=== PATIENT | female | born 1960 | race African-American/Black ===

== ENCOUNTER 2017-01-06 23:15 | Inpatient (IN) | payer OTHER ==
[~2017-01-06] VITALS: Ht 162.6 cm; Wt 78.6 kg
[~2017-01-06 23:15] MED LIST: AMLO5TAB2 PO
--- NOTE | 2017-01-06 23:22 | PHYS DOC ---
Past Medical History Past Medical History: Hypertension Past Surgical History: Hysterectomy Alcohol Use: Heavy Drug Use: Marijuana Adult General Chief Complaint Chief Complaint: SHORTNESS OF BREATH HPI HPI Patient is a 56 year old female who presents with shortness of breath. EMS was called today she states she's been having shortness of breath all day today. They found her to have O2 sats 80% on room air. They brought her in on CPAP. Her oxygen level improved to 96% while on their CPAP. She denies any chest pain , she states her shortness of breath she's never had like this before. She states she does have 2 inhalers she uses but denies a history of COPD. She does smoke but only smokes 2 units per day. She states she was seen at [facility]. 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 She states she's had a cough all day but is nonproductive. She denies any fevers or chills nausea or vomiting. She denies any chest discomfort or pain. States she as been prescribed Lasix secondary for her blood pressure but has not been taking it. Review of Systems Review of Systems Constitutional: Denies fever or chills [] Eyes: Denies change in visual acuity, redness, or eye pain [] HENT: Denies nasal congestion or sore throat [] Respiratory: Positive for cough and shortness of breath. Cardiovascular: No additional information not addressed in HPI [] GI: Denies abdominal pain, nausea, vomiting, bloody stools or diarrhea [] : Denies dysuria or hematuria [] Musculoskeletal: Denies back pain or joint pain [] Integument: Denies rash or skin lesions [] Neurologic: Denies headache, focal weakness or sensory changes [] Endocrine: Denies polyuria or polydipsia [] Current Medications Current Medications Current Medications Medications (Trade) Dose Ordered Sig/Rhys Start Time Stop Time Status Last Admin Dose Admin Albuterol/ Ipratropium (Duoneb) 3 ml STK-MED ONCE 01/06/17 23:33 01/06/17 23:34 DC Furosemide (Lasix) 40 mg 1X ONCE 01/07/17 00:15 01/07/17 00:16 DC 01/07/17 00:14 40 MG Labetalol HCl (Normodyne) 20 mg PRN Q2HR PRN 01/07/17 00:15 Methylprednisolone Sodium Succinate (SOLU-Medrol 125MG VIAL) 125 mg 1X ONCE 01/06/17 23:45 01/06/17 23:46 DC 01/06/17 23:36 125 MG Allergies Allergies Allergies Coded Allergies Type Severity Reaction Last Updated Verified Penicillins Allergy Intermediate 12/16/15 No Physical Exam Physical Exam Constitutional: Well developed, well nourished, no acute distress, non-toxic appearance. [] HENT: Normocephalic, atraumatic, bilateral external ears normal, oropharynx moist, no oral exudates, nose normal. [] Eyes: PERRLA, EOMI, conjunctiva normal, no discharge. [] Neck: Normal range of motion, no tenderness, supple, no stridor. [] Cardiovascular:Heart rate regular rhythm, no murmur [] Lungs & Thorax: Bilateral breath sounds decreased bilaterally, no wheezing appreciated this time. Abdomen: Bowel sounds normal, soft, no tenderness, no masses, no pulsatile masses. [] Skin: Warm, dry, no erythema, no rash. [] Back: No tenderness, no CVA tenderness. [] Extremities: No tenderness, no cyanosis, no clubbing, ROM intact, no edema. [] Neurologic: Alert and oriented X 3, normal motor function, normal sensory function, no focal deficits noted. [] Psychologic: Affect normal, judgement normal, mood normal. [] Current Patient Data Vital Signs Vital Signs Date Time Temp Pulse Resp B/P (MAP) Pulse Ox O2 Delivery O2 Flow Rate FiO2 01/07/17 00:08 94 01/07/17 00:04 88 25 182/99 (126) BiPAP/CPAP 01/06/17 23:19 98.1 98.1 Lab Values Laboratory Tests Test 01/06/17 00:08 01/06/17 23:24 01/06/17 23:43 O2 Saturation 90 % (92-99) L Arterial Blood pH 7.39 (7.35-7.45) Arterial Blood pCO2 at Patient Temp 37 mmHg (35-46) Arterial Blood pO2 at Patient Temp 63 mmHg (75-108) L Arterial Blood HCO3 22 mmol/L (21-28) Arterial Blood Base Excess -3 mmol/L (-3-3) FiO2 30.0 White Blood Count 8.5 x10^3/uL (4.0-11.0) Red Blood Count 4.21 x10^6/uL (3.50-5.40) Hemoglobin 12.7 g/dL (12.0-15.5) Hematocrit 40.6 % (36.0-47.0) Mean Corpuscular Volume 97 fL (79-100) Mean Corpuscular Hemoglobin 30 pg (25-35) Mean Corpuscular Hemoglobin Concent 31 g/dL (31-37) Red Cell Distribution Width 14.0 % (11.5-14.5) Platelet Count 192 x10^3/uL (140-400) Neutrophils (%) (Auto) 55 % (31-73) Lymphocytes (%) (Auto) 37 % (24-48) Monocytes (%) (Auto) 6 % (0-9) Eosinophils (%) (Auto) 1 % (0-3) Basophils (%) (Auto) 1 % (0-3) Neutrophils # (Auto) 4.7 x10^3uL (1.8-7.7) Lymphocytes # (Auto) 3.2 x10^3/uL (1.0-4.8) Monocytes # (Auto) 0.5 x10^3/uL (0.0-1.1) Eosinophils # (Auto) 0.1 x10^3/uL (0.0-0.7) Basophils # (Auto) 0.1 x10^3/uL (0.0-0.2) Prothrombin Time 14.1 SEC (11.7-14.0) H Prothrombin Time INR 1.2 (0.8-1.1) H Sodium Level 142 mmol/L (136-145) Potassium Level 3.7 mmol/L (3.5-5.1) Chloride Level 104 mmol/L (98-107) Carbon Dioxide Level 30 mmol/L (21-32) Anion Gap 8 (6-14) Blood Urea Nitrogen 25 mg/dL (7-20) H Creatinine 1.2 mg/dL (0.6-1.0) H Estimated GFR (Cockcroft-Gault) 56.2 Glucose Level 328 mg/dL (70-99) H Lactic Acid Level 3.8 mmol/L (0.4-2.0) H Calcium Level 9.1 mg/dL (8.5-10.1) Magnesium Level 1.8 mg/dL (1.8-2.4) Total Bilirubin 0.5 mg/dL (0.2-1.0) Direct Bilirubin 0.2 mg/dL (0.0-0.2) Aspartate Amino Transferase (AST) 135 U/L (15-37) H Alanine Aminotransferase (ALT) 105 U/L (14-59) H Alkaline Phosphatase 126 U/L (46-116) H Creatine Kinase 54 U/L (26-192) Creatine Kinase MB (Mass) 1.0 ng/mL (0.0-3.6) Creatine Kinase MB Relative Index % (0-4) Troponin I Quantitative 0.049 ng/mL (0.000-0.055) VX-Ais-G-Type Natriuretic Peptide 46452 pg/mL (0-124) H Total Protein 6.7 g/dL (6.4-8.2) Albumin 2.8 g/dL (3.4-5.0) L Lipase 238 U/L (73-393) POC Urine HCG, Qualitative Hcg negative (Negative) Laboratory Tests 01/06/17 23:24 Laboratory Tests 01/06/17 23:24 EKG EKG EKG shows sinus tachycardia with a rate of [address] elevations, T- wave inversions appreciated in aVL, left axis deviation noted, QTC 456 ms, as interpreted by me. 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 Impressions: Dyspnea likely CHF exacerbation Course & Med Decision Making Course & Med Decision Making Pertinent Labs and Imaging studies reviewed. (See chart for details) Patient presents in respiratory failure needing CPAP by EMS. She was hypoxic at home with O2 sats in the 80s prior to applying her CPAP. She states that she's has inhalers but no formal diagnosis of COPD. She did get a breathing treatment and Solu-Medrol upon arrival. She does states she takes Lasix as needed for high blood pressure but has not been taking this for a while. Chest x-ray and labs are consistent with pulmonary edema. She was given 40 of IV Lasix and her blood pressure responded accordingly. I had ordered labetalol but this has not been given secondary to her blood pressure being in the 150s now. Interim orders have been written she is going to the [facility] on BiPAP. I anticipate that over the next 1-2 hours she can be titrated off of this. Patient is being admitted in stable condition at this time. I did write for consultations with cardiology and pulmonary, I did not call them and we'll let the floor calling consults. Critical care time 45 minutes of critical care time was used on this patient excluding procedures. Dragon Disclaimer Dragon Disclaimer This electronic medical record was generated, in whole or in part, using a voice recognition dictation system. Departure Departure Impression: Primary Impression: Shortness of breath Disposition: ADMITTED INPATIENT Admitting Physician: Umesh Mark Condition: STABLE Referrals: NON,STAFF (PCP) NATALIA SEXTON MD Jan 06, 2017 23:22
[2017-01-06] MEDS ORDERED: IPRATRPIUM/ALBUTEROL 0.5/2.5MG 3 ML NEBU. ONE (23:33)
[2017-01-06 23:37] LABS: BASO # 0.1 x10^3/uL (0.0-0.2); BASO % 1 % (0-3); EOS % 1 % (0-3); HEMATOCRIT 40.6 % (36.0-47.0); HEMOGLOBIN 12.7 g/dL (12.0-15.5); LYMPH # 3.2 x10^3/uL (1.0-4.8); LYMPH % 37 % (24-48); MEAN CORPUSCULAR HEMOGLOBIN 30 pg (25-35); MEAN CORPUSCULAR HGB CONC 31 g/dL (31-37); MEAN CORPUSCULAR VOLUME 97 fL (79-100); MONO % 6 % (0-9); NEUT % 55 % (31-73); PLATELET COUNT 192 x10^3/uL (140-400); RED BLOOD COUNT 4.21 x10^6/uL (3.50-5.40); WHITE BLOOD COUNT 8.5 x10^3/uL (4.0-11.0)
[2017-01-06 23:44] LABS: INR 1.2 (0.8-1.1); PROTHROMBIN TIME PATIENT 14.1 SEC (11.7-14.0)
[2017-01-06] MEDS ORDERED: methylPREDNISolone SOD SUCC PF 125 MG/2 ML VIAL. IV ONE (23:45)
[2017-01-06 23:47] LABS: CALCIUM 9.1 mg/dL (8.5-10.1); CREATININE 1.2 mg/dL (0.6-1.0); GFR 56.2; POTASSIUM 3.7 mmol/L (3.5-5.1)
[2017-01-06 23:53] LABS: ALBUMIN 2.8 g/dL (3.4-5.0); DIRECT BILIRUBIN 0.2 mg/dL (0.0-0.2); MAGNESIUM 1.8 mg/dL (1.8-2.4); TOTAL BILIRUBIN 0.5 mg/dL (0.2-1.0); TOTAL PROTEIN 6.7 g/dL (6.4-8.2)
[2017-01-07] VITALS (9 sets, daily range): BP systolic 119–175; BP diastolic 68–105
[2017-01-07 00:01] LABS: CREATINE KINASE 54 U/L (26-192)
[2017-01-07 00:08] LABS: HCO3 ABG 22 mmol/L (21-28); PCO2 ABG 37 mmHg (35-46); PH ABG 7.39 (7.35-7.45); PO2 ABG 63 mmHg (75-108); SAT O2 ABG 90 % (92-99)
[2017-01-07] MEDS ORDERED: FUROSEMIDE 40 MG/4 ML VIAL. IVP ONE (00:15)
[2017-01-07] MEDS ORDERED: LABETALOL 20 MG/4 ML DISP.SYRIN. IVP PRN (00:15)
[2017-01-07 00:51] LABS: BARBITURATES NEG (NEG); BENZODIAZEPINES NEG (NEG); CANNABINOIDS NEG (NEG); COCAINE NEG (NEG); METHADONE NEG (NEG); OPIATES NEG (NEG); PHENCYCLIDINE NEG (NEG)
[2017-01-07] MEDS ORDERED: ONDANSETRON PF 4 MG/2 ML VIAL. IV PRN ×2 (01:00→09:15)
[2017-01-07 01:02] LABS: BACTERIA,URINE MODERATE /HPF (0-FEW); BILIRUBIN,URINE NEGATIVE (NEG); GLUCOSE,URINE 100 mg/dL (NEG); NITRITE,URINE NEGATIVE (NEG); PROTEIN,URINE 100 mg/dL (NEG-TRACE); UROBILINOGEN,URINE 0.2 mg/dL (0.2 mg/dL)
[2017-01-07 01:03] LABS: SQUAMOUS EPITHELIAL CELL,UR MOD /LPF
[2017-01-07] MEDS ORDERED: ATOR40TA59 (01:43)
[2017-01-07] MEDS ORDERED: CARV25TA2 PO (01:43)
[2017-01-07] MEDS ORDERED: ATROVENT (01:43)
[2017-01-07] MEDS ORDERED: LISI40TA (01:43)
[2017-01-07] MEDS ORDERED: ALBU8.5H8 (01:43)
[2017-01-07] MEDS ORDERED: ASPI-482 PO (01:44)
--- NOTE | 2017-01-07 07:15 | EKG ---
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
--- NOTE | 2017-01-07 08:20 | RAD ---
Portable chest, 01/06/2017: History: Shortness of breath No previous chest radiographs are available at this time for comparison purposes. The heart is enlarged. The pulmonary vascularity is prominent there are increased interstitial markings in the lung bases. No pulmonary consolidation is seen. There is no evidence of pleural fluid. IMPRESSION: Cardiomegaly with basilar interstitial prominence suggesting low-grade congestive heart failure. A component of fibrosis cannot be excluded.
[2017-01-07] MEDS ORDERED: ACETAMINOPHEN 500 MG TABLET PO PRN (09:15)
[2017-01-07] MEDS ORDERED: guaiFENesin DM 200MG/20MG 10 ML SYRUP PO PRN (09:15)
[2017-01-07 09:50] LABS: CREATININE 0.8 mg/dL (0.6-1.0); GFR 89.8; MAGNESIUM 1.6 mg/dL (1.8-2.4); POTASSIUM 3.2 mmol/L (3.5-5.1)
[2017-01-07 09:53] LABS: CHOLESTEROL/HDL RATIO 1.8
[2017-01-07] MEDS: ASPIRIN ENTERIC COATED 81 MG TABLET.DR. PO SCH (09:53)
[2017-01-07] MEDS: amLODIPine BESYLATE 5 MG TABLET PO SCH (09:54)
[2017-01-07] MEDS: LISINOPRIL 40 MG TABLET. PO SCH (09:54)
[2017-01-07] MEDS: CARVEDILOL 12.5 MG TABLET. PO SCH ×2 (09:55→17:37)
--- NOTE | 2017-01-07 10:06 | PDOC2 ---
CARDIAC CONSULT DATE OF CONSULT Date of Consult DATE: 01/07/17 TIME: 10:00 REASON FOR CONSULT Reason for Consult: CHF REFERRING PHYSICIAN Referring Physician: Dr. Mcpherson SOURCE Source: Chart review, Patient HISTORY OF PRESENT ILLNESS HISTORY OF PRESENT ILLNESS This is a 56 yo female who presented with complaints of shortness of breath for the last couple of days. Associated with orthopnea. No LE edema. Denies any chest pain, palpitations, dizziness, diaphoresis, syncope, or nausea/vomiting. No prior known history of CHF of significant CAD. 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 Symptoms significantly improved with IV Lasix. Feeling much better this morning. PAST MEDICAL HISTORY Cardiovascular: HTN, Hyperlipidemia Pulmonary: No pertinent hx GI: No pertinent hx Heme/Onc: Other (DVT following ankle fx) Hepatobiliary: No pertinent hx Psych: Addictions (ETOH) Rheumatologic: No pertinent hx Infectious disease: No pertinent hx ENT: No pertinent hx Renal/: No pertinent hx Endocrine: No pertinent hx Dermatology: No pertinent hx PAST SURGICAL HISTORY Past Surgical History: Hysterectomy FAMILY HISTORY Family History: Coronary Artery Disease, Other (COPD) SOCIAL HISTORY Smoke: <1 pack per day ALCOHOL: heavy (1 pint Vodka daily ) Drugs: Marijuana Lives: with Family CURRENT MEDICATIONS CURRENT MEDICATIONS Current Medications Medications (Trade) Dose Ordered Sig/Rhys Route PRN Reason Start Time Stop Time Status Last Admin Dose Admin Methylprednisolone Sodium Succinate (SOLU-Medrol 125MG VIAL) 125 mg 1X ONCE IV 01/06/17 23:45 01/06/17 23:46 DC 01/06/17 23:36 Furosemide (Lasix) 40 mg 1X ONCE IVP 01/07/17 00:15 01/07/17 00:16 DC 01/07/17 00:14 Labetalol HCl (Normodyne) 20 mg PRN Q2HR PRN IVP HYPERTENSION, SEE COMMENTS 01/07/17 00:15 01/07/17 03:59 Amlodipine Besylate (Norvasc) 5 mg DAILY PO 01/07/17 10:00 01/07/17 09:54 Aspirin (Ecotrin) 81 mg DAILY PO 01/07/17 10:00 01/07/17 09:53 Lisinopril (Prinivil) 40 mg DAILY PO 01/07/17 10:00 01/07/17 09:54 Carvedilol (Coreg) 25 mg BIDWMEALS PO 01/07/17 10:00 01/07/17 09:55 ALLERGIES ALLERGIES: Coded Allergies: Penicillins (Unverified Allergy, Intermediate, 12/16/15) ROS Review of System 14 point ROS conducted with pertinent positives noted above in HPI. PHYSICAL EXAM General: Alert, Oriented X3, Cooperative, No acute distress HEENT: Atraumatic, Mucous membr. moist/pink Lungs: Other (diminished bases ) Heart: Regular rate, Normal S1, Normal S2, No murmurs, Other Abdomen: Soft, No tenderness Extremities: No edema, Normal pulses Skin: No breakdown, No significant lesion Neuro: Normal speech, Sensation intact Psych/Mental Status: Mental status NL, Mood NL MUSCULOSKELETAL: Osteoarthritic changes both hands VITALS VITALS Vital Signs Date Time Temp Pulse Resp B/P (MAP) Pulse Ox O2 Delivery O2 Flow Rate FiO2 01/07/17 09:55 85 139/84 01/07/17 07:49 Nasal Cannula 2.0 01/07/17 07:30 98.2 12 98 98.2 LABS Lab: Laboratory Tests Test 01/06/17 23:24 01/06/17 23:43 01/07/17 00:30 01/07/17 02:41 White Blood Count 8.5 x10^3/uL (4.0-11.0) Red Blood Count 4.21 x10^6/uL (3.50-5.40) Hemoglobin 12.7 g/dL (12.0-15.5) Hematocrit 40.6 % (36.0-47.0) Mean Corpuscular Volume 97 fL (79-100) Mean Corpuscular Hemoglobin 30 pg (25-35) Mean Corpuscular Hemoglobin Concent 31 g/dL (31-37) Red Cell Distribution Width 14.0 % (11.5-14.5) Platelet Count 192 x10^3/uL (140-400) Neutrophils (%) (Auto) 55 % (31-73) Lymphocytes (%) (Auto) 37 % (24-48) Monocytes (%) (Auto) 6 % (0-9) Eosinophils (%) (Auto) 1 % (0-3) Basophils (%) (Auto) 1 % (0-3) Neutrophils # (Auto) 4.7 x10^3uL (1.8-7.7) Lymphocytes # (Auto) 3.2 x10^3/uL (1.0-4.8) Monocytes # (Auto) 0.5 x10^3/uL (0.0-1.1) Eosinophils # (Auto) 0.1 x10^3/uL (0.0-0.7) Basophils # (Auto) 0.1 x10^3/uL (0.0-0.2) Prothrombin Time 14.1 SEC (11.7-14.0) Prothromb Time International Ratio 1.2 (0.8-1.1) Sodium Level 142 mmol/L (136-145) Potassium Level 3.7 mmol/L (3.5-5.1) Chloride Level 104 mmol/L (98-107) Carbon Dioxide Level 30 mmol/L (21-32) Anion Gap 8 (6-14) Blood Urea Nitrogen 25 mg/dL (7-20) Creatinine 1.2 mg/dL (0.6-1.0) Estimated GFR (Cockcroft-Gault) 56.2 Glucose Level 328 mg/dL (70-99) Lactic Acid Level 3.8 mmol/L (0.4-2.0) 1.5 mmol/L (0.4-2.0) Calcium Level 9.1 mg/dL (8.5-10.1) Magnesium Level 1.8 mg/dL (1.8-2.4) Total Bilirubin 0.5 mg/dL (0.2-1.0) Direct Bilirubin 0.2 mg/dL (0.0-0.2) Aspartate Amino Transf (AST/SGOT) 135 U/L (15-37) Alanine Aminotransferase (ALT/SGPT) 105 U/L (14-59) Alkaline Phosphatase 126 U/L (46-116) Creatine Kinase 54 U/L (26-192) Creatine Kinase MB (Mass) 1.0 ng/mL (0.0-3.6) Creatine Kinase MB Relative Index % (0-4) Troponin I Quantitative 0.049 ng/mL (0.000-0.055) 0.066 ng/mL (0.000-0.055) NL-Sys-V-Type Natriuretic Peptide 13420 pg/mL (0-124) Total Protein 6.7 g/dL (6.4-8.2) Albumin 2.8 g/dL (3.4-5.0) Lipase 238 U/L (73-393) Bedside Urine HCG, Qualitative Hcg negative (Negative) Urine Collection Type Unknown Urine Color Yellow Urine Clarity Clear Urine pH 7.0 Urine Specific [place] 1.010 Urine Protein 100 mg/dL (NEG-TRACE) Urine Glucose (UA) 100 mg/dL (NEG) Urine Ketones (Stick) Negative mg/dL (NEG) Urine Blood Small (NEG) Urine Nitrite Negative (NEG) Urine Bilirubin Negative (NEG) Urine Urobilinogen Dipstick 0.2 mg/dL (0.2 mg/dL) Urine Leukocyte Esterase Negative (NEG) Urine RBC 1-2 /HPF (0-2) Urine WBC 1-4 /HPF (0-4) Urine Squamous Epithelial Cells Mod /LPF Urine Bacteria Moderate /HPF (0-FEW) Urine Hyaline Casts Moderate /HPF Urine Mucus Slight /LPF Urine Opiates Screen Neg (NEG) Urine Methadone Screen Neg (NEG) Urine Barbiturates Neg (NEG) Urine Phencyclidine Screen Neg (NEG) Urine Amphetamine/Methamphetamine Neg (NEG) Urine Benzodiazepines Screen Neg (NEG) Urine Cocaine Screen Neg (NEG) Urine Cannabinoids Screen Neg (NEG) Urine Ethyl Alcohol Neg (NEG) Test 01/07/17 08:30 Sodium Level 144 mmol/L (136-145) Potassium Level 3.2 mmol/L (3.5-5.1) Chloride Level 105 mmol/L (98-107) Carbon Dioxide Level 30 mmol/L (21-32) Anion Gap 9 (6-14) Blood Urea Nitrogen 23 mg/dL (7-20) Creatinine 0.8 mg/dL (0.6-1.0) Estimated GFR (Cockcroft-Gault) 89.8 Glucose Level 148 mg/dL (70-99) Calcium Level 9.0 mg/dL (8.5-10.1) Magnesium Level 1.6 mg/dL (1.8-2.4) Troponin I Quantitative 0.065 ng/mL (0.000-0.055) Triglycerides Level 56 mg/dL (0-150) Cholesterol Level 119 mg/dL (0-200) LDL Cholesterol, Calculated 42 mg/dL (0-100) VLDL Cholesterol, Calculated 11 mg/dL (0-40) Non-HDL Cholesterol Calculated 53 mg/dL (0-129) HDL Cholesterol 66 mg/dL (40-60) Cholesterol/HDL Ratio 1.8 ASSESSMENT/PLAN ASSESSMENT/PLAN 1. Acute heart failure; NT Pro BNP 16,000. CXR with mild CHF. improved with IV Lasix. 2. Acute hypoxic respiratory failure with AE COPD; improved. per pulmonary 3. Mild troponin elevation; peak 0.066. Likely type II demand ischemia in the setting of hypoxic respiratory failure. Stable. CP free. Recent cath without obstructive disease. 4. Hypokalemia/Hypomagnesemia 5. Alcoholism; not interested in quitting. withdrawal management as per PCP 6. Tobaccoism; discussed encouraged cessation Recommendations Check echo to assess LV function Obtain cardiac records from [facility]. Will start oral Lasix for now. Replace K, Mg. Monitor lytes Further recommendations pending diagnostics and review of records. Problems: JOEY MCMAHON APRN Jan 07, 2017 10:06
--- NOTE | 2017-01-07 10:47 | PDOC1 ---
History and Physical Date of Admission Date of Admission DATE: 01/07/17 TIME: 10:40 Identification/Chief Complaint Chief Complaint SOA Problems: Source Source: Caregiver, Chart review, Patient History of Present Illness History of Present Illness 56 y.o AA female, follows with [facility], COPD not O2, prev a pack a day smoker now down to 2 cigs a day, but STILL HEAVY VODKA drinker, at least a pint a day, comes in for SOA, no CP. PUlm edema on CXR, no PND< no orthopnea,, no JVD. Denies leg swelling, Better with IV 40 lasix, Was in [facility] feb 2016 where LHC done showed 20% blockage and advised medical mx, Claims compliance with meds. NOt ready to quit drinking. PAst medical; HTN, marijuana use Past surgical: hysterrectomy Vices; Drinker, smoker, marijauna use Past Medical History Cardiovascular: HTN Past Surgical History Past Surgical History: Hysterectomy, No pertinent history Family History Family History: Hypertension Social History Smoke: <1 pack per day ALCOHOL: heavy Drugs: None, Marijuana Current Medications Current Medications Current Medications Methylprednisolone Sodium Succinate (SOLU-Medrol 125MG VIAL) 125 mg 1X ONCE IV Last administered on 01/06/17 23:36; Start 01/06/17 at 23:45; Stop 01/06/17 at 23:46; Status DC Albuterol/ Ipratropium (Duoneb) 3 ml STK-MED ONCE .ROUTE ; Start 01/06/17 at 23: 33; Stop 01/06/17 at 23:34; Status DC Furosemide (Lasix) 40 mg 1X ONCE IVP Last administered on 01/07/17 00:14; Start 01/07/17 at 00:15; Stop 01/07/17 at 00:16; Status DC Labetalol HCl (Normodyne) 20 mg PRN Q2HR PRN IVP HYPERTENSION, SEE COMMENTS Last administered on 01/07/17 03:59; Start 01/07/17 at 00:15 Ondansetron HCl (Zofran) 4 mg PRN Q8HRS PRN IV NAUSEA/VOMITING; Start 01/07/17 at 01:00; Stop 01/07/17 at 09:09; Status DC Ondansetron HCl (Zofran) 4 mg PRN Q6HRS PRN IV NAUSEA/VOMITING; Start 01/07/17 at 09:15; Stop 01/08/17 at 09:14 Acetaminophen (Tylenol) 500 mg PRN Q6HRS PRN PO MILD PAIN / TEMP; Start at 09:15 Guaifenesin (Robitussin Dm) 10 ml PRN Q6HRS PRN PO COUGH; Start 01/07/17 at 09: 15 Albuterol/ Ipratropium (Duoneb) 3 ml RTQID NEB ; Start 01/07/17 at 12:00 Amlodipine Besylate (Norvasc) 5 mg DAILY PO Last administered on 01/07/17 09: 54; Start 01/07/17 at 10:00 Aspirin (Ecotrin) 81 mg DAILY PO Last administered on 01/07/17 09:53; Start at 10:00 Atorvastatin Calcium (Lipitor) 40 mg QHS PO ; Start 01/07/17 at 21:00 Lisinopril (Prinivil) 40 mg DAILY PO Last administered on 01/07/17 09:54; Start 01/07/17 at 10:00 Carvedilol (Coreg) 25 mg BIDWMEALS PO Last administered on 01/07/17 09:55; Start 01/07/17 at 10:00 Active Scripts Active Reported Aspir 81 (Aspirin) 81 Mg Tablet.dr 1 Tab PO DAILY Atorvastatin Calcium 40 Mg Tablet Carvedilol 25 Mg Tablet 25 Mg PO DAILY Lisinopril 40 Mg Tablet Proair Hfa (Albuterol Sulfate) 8.5 Gm Hfa.aer.ad [Atrovent] Amlodipine Besylate 5 Mg Tablet 5 Mg PO DAILY Allergies Allergies: Coded Allergies: Penicillins (Unverified Allergy, Intermediate, 12/16/15) ROS Review of System as per HPI, all else is neg Physical Exam General: Alert, Oriented X3, Cooperative, No acute distress HEENT: Atraumatic, PERRLA, EOMI Lungs: Clear to auscultation, Normal air movement Heart: S1S2, RRR, no thrills, no rubs, no gallops, no murmurs Cardiovascular: S1, S2 Breasts: Normal, Rt breast nml w/o mass, Lt breast nml w/o mass, Nipples normal Abdomen: Normal bowel sounds, Soft, No tenderness, No hepatosplenomegaly, No masses Male Genitals Exam: normal genitalia, normal prostate Rectal Exam: not examined PELVIC: Nml ext genitalia Extremities: No clubbing, No cyanosis, No edema, Normal pulses, No tenderness/ swelling Skin: No rashes, No breakdown, No significant lesion Neuro: Normal gait, Normal speech, Strength at 5/5 X4 ext, Normal tone, Sensation intact, Cranial nerves 3-12 NL, Reflexes 2+ Vitals Vitals Vital Signs Date Time Temp Pulse Resp B/P (MAP) Pulse Ox O2 Delivery O2 Flow Rate FiO2 01/07/17 09:55 85 139/84 01/07/17 07:49 Nasal Cannula 2.0 01/07/17 07:30 98.2 12 98 98.2 Labs Labs Laboratory Tests Test 01/06/17 00:08 01/06/17 23:24 01/06/17 23:43 01/07/17 00:30 O2 Saturation 90 % (92-99) Arterial Blood pH 7.39 (7.35-7.45) Arterial Blood pCO2 at Patient Temp 37 mmHg (35-46) Arterial Blood pO2 at Patient Temp 63 mmHg (75-108) Arterial Blood HCO3 22 mmol/L (21-28) Arterial Blood Base Excess -3 mmol/L (-3-3) FiO2 30.0 White Blood Count 8.5 x10^3/uL (4.0-11.0) Red Blood Count 4.21 x10^6/uL (3.50-5.40) Hemoglobin 12.7 g/dL (12.0-15.5) Hematocrit 40.6 % (36.0-47.0) Mean Corpuscular Volume 97 fL (79-100) Mean Corpuscular Hemoglobin 30 pg (25-35) Mean Corpuscular Hemoglobin Concent 31 g/dL (31-37) Red Cell Distribution Width 14.0 % (11.5-14.5) Platelet Count 192 x10^3/uL (140-400) Neutrophils (%) (Auto) 55 % (31-73) Lymphocytes (%) (Auto) 37 % (24-48) Monocytes (%) (Auto) 6 % (0-9) Eosinophils (%) (Auto) 1 % (0-3) Basophils (%) (Auto) 1 % (0-3) Neutrophils # (Auto) 4.7 x10^3uL (1.8-7.7) Lymphocytes # (Auto) 3.2 x10^3/uL (1.0-4.8) Monocytes # (Auto) 0.5 x10^3/uL (0.0-1.1) Eosinophils # (Auto) 0.1 x10^3/uL (0.0-0.7) Basophils # (Auto) 0.1 x10^3/uL (0.0-0.2) Prothrombin Time 14.1 SEC (11.7-14.0) Prothromb Time International Ratio 1.2 (0.8-1.1) Sodium Level 142 mmol/L (136-145) Potassium Level 3.7 mmol/L (3.5-5.1) Chloride Level 104 mmol/L (98-107) Carbon Dioxide Level 30 mmol/L (21-32) Anion Gap 8 (6-14) Blood Urea Nitrogen 25 mg/dL (7-20) Creatinine 1.2 mg/dL (0.6-1.0) Estimated GFR (Cockcroft-Gault) 56.2 Glucose Level 328 mg/dL (70-99) Lactic Acid Level 3.8 mmol/L (0.4-2.0) Calcium Level 9.1 mg/dL (8.5-10.1) Magnesium Level 1.8 mg/dL (1.8-2.4) Total Bilirubin 0.5 mg/dL (0.2-1.0) Direct Bilirubin 0.2 mg/dL (0.0-0.2) Aspartate Amino Transf (AST/SGOT) 135 U/L (15-37) Alanine Aminotransferase (ALT/SGPT) 105 U/L (14-59) Alkaline Phosphatase 126 U/L (46-116) Creatine Kinase 54 U/L (26-192) Creatine Kinase MB (Mass) 1.0 ng/mL (0.0-3.6) Creatine Kinase MB Relative Index % (0-4) Troponin I Quantitative 0.049 ng/mL (0.000-0.055) OY-Nqz-V-Type Natriuretic Peptide 72436 pg/mL (0-124) Total Protein 6.7 g/dL (6.4-8.2) Albumin 2.8 g/dL (3.4-5.0) Lipase 238 U/L (73-393) Bedside Urine HCG, Qualitative Hcg negative (Negative) Urine Collection Type Unknown Urine Color Yellow Urine Clarity Clear Urine pH 7.0 Urine Specific [place] 1.010 Urine Protein 100 mg/dL (NEG-TRACE) Urine Glucose (UA) 100 mg/dL (NEG) Urine Ketones (Stick) Negative mg/dL (NEG) Urine Blood Small (NEG) Urine Nitrite Negative (NEG) Urine Bilirubin Negative (NEG) Urine Urobilinogen Dipstick 0.2 mg/dL (0.2 mg/dL) Urine Leukocyte Esterase Negative (NEG) Urine RBC 1-2 /HPF (0-2) Urine WBC 1-4 /HPF (0-4) Urine Squamous Epithelial Cells Mod /LPF Urine Bacteria Moderate /HPF (0-FEW) Urine Hyaline Casts Moderate /HPF Urine Mucus Slight /LPF Urine Opiates Screen Neg (NEG) Urine Methadone Screen Neg (NEG) Urine Barbiturates Neg (NEG) Urine Phencyclidine Screen Neg (NEG) Urine Amphetamine/Methamphetamine Neg (NEG) Urine Benzodiazepines Screen Neg (NEG) Urine Cocaine Screen Neg (NEG) Urine Cannabinoids Screen Neg (NEG) Urine Ethyl Alcohol Neg (NEG) Test 01/07/17 02:41 01/07/17 08:30 Lactic Acid Level 1.5 mmol/L (0.4-2.0) Troponin I Quantitative 0.066 ng/mL (0.000-0.055) 0.065 ng/mL (0.000-0.055) Sodium Level 144 mmol/L (136-145) Potassium Level 3.2 mmol/L (3.5-5.1) Chloride Level 105 mmol/L (98-107) Carbon Dioxide Level 30 mmol/L (21-32) Anion Gap 9 (6-14) Blood Urea Nitrogen 23 mg/dL (7-20) Creatinine 0.8 mg/dL (0.6-1.0) Estimated GFR (Cockcroft-Gault) 89.8 Glucose Level 148 mg/dL (70-99) Calcium Level 9.0 mg/dL (8.5-10.1) Magnesium Level 1.6 mg/dL (1.8-2.4) Triglycerides Level 56 mg/dL (0-150) Cholesterol Level 119 mg/dL (0-200) LDL Cholesterol, Calculated 42 mg/dL (0-100) VLDL Cholesterol, Calculated 11 mg/dL (0-40) Non-HDL Cholesterol Calculated 53 mg/dL (0-129) HDL Cholesterol 66 mg/dL (40-60) Cholesterol/HDL Ratio 1.8 Laboratory Tests Test 01/06/17 23:24 01/06/17 23:43 01/07/17 00:30 01/07/17 02:41 White Blood Count 8.5 x10^3/uL (4.0-11.0) Red Blood Count 4.21 x10^6/uL (3.50-5.40) Hemoglobin 12.7 g/dL (12.0-15.5) Hematocrit 40.6 % (36.0-47.0) Mean Corpuscular Volume 97 fL (79-100) Mean Corpuscular Hemoglobin 30 pg (25-35) Mean Corpuscular Hemoglobin Concent 31 g/dL (31-37) Red Cell Distribution Width 14.0 % (11.5-14.5) Platelet Count 192 x10^3/uL (140-400) Neutrophils (%) (Auto) 55 % (31-73) Lymphocytes (%) (Auto) 37 % (24-48) Monocytes (%) (Auto) 6 % (0-9) Eosinophils (%) (Auto) 1 % (0-3) Basophils (%) (Auto) 1 % (0-3) Neutrophils # (Auto) 4.7 x10^3uL (1.8-7.7) Lymphocytes # (Auto) 3.2 x10^3/uL (1.0-4.8) Monocytes # (Auto) 0.5 x10^3/uL (0.0-1.1) Eosinophils # (Auto) 0.1 x10^3/uL (0.0-0.7) Basophils # (Auto) 0.1 x10^3/uL (0.0-0.2) Prothrombin Time 14.1 SEC (11.7-14.0) Prothromb Time International Ratio 1.2 (0.8-1.1) Sodium Level 142 mmol/L (136-145) Potassium Level 3.7 mmol/L (3.5-5.1) Chloride Level 104 mmol/L (98-107) Carbon Dioxide Level 30 mmol/L (21-32) Anion Gap 8 (6-14) Blood Urea Nitrogen 25 mg/dL (7-20) Creatinine 1.2 mg/dL (0.6-1.0) Estimated GFR (Cockcroft-Gault) 56.2 Glucose Level 328 mg/dL (70-99) Lactic Acid Level 3.8 mmol/L (0.4-2.0) 1.5 mmol/L (0.4-2.0) Calcium Level 9.1 mg/dL (8.5-10.1) Magnesium Level 1.8 mg/dL (1.8-2.4) Total Bilirubin 0.5 mg/dL (0.2-1.0) Direct Bilirubin 0.2 mg/dL (0.0-0.2) Aspartate Amino Transf (AST/SGOT) 135 U/L (15-37) Alanine Aminotransferase (ALT/SGPT) 105 U/L (14-59) Alkaline Phosphatase 126 U/L (46-116) Creatine Kinase 54 U/L (26-192) Creatine Kinase MB (Mass) 1.0 ng/mL (0.0-3.6) Creatine Kinase MB Relative Index % (0-4) Troponin I Quantitative 0.049 ng/mL (0.000-0.055) 0.066 ng/mL (0.000-0.055) TN-Qbs-D-Type Natriuretic Peptide 28832 pg/mL (0-124) Total Protein 6.7 g/dL (6.4-8.2) Albumin 2.8 g/dL (3.4-5.0) Lipase 238 U/L (73-393) Bedside Urine HCG, Qualitative Hcg negative (Negative) Urine Collection Type Unknown Urine Color Yellow Urine Clarity Clear Urine pH 7.0 Urine Specific [place] 1.010 Urine Protein 100 mg/dL (NEG-TRACE) Urine Glucose (UA) 100 mg/dL (NEG) Urine Ketones (Stick) Negative mg/dL (NEG) Urine Blood Small (NEG) Urine Nitrite Negative (NEG) Urine Bilirubin Negative (NEG) Urine Urobilinogen Dipstick 0.2 mg/dL (0.2 mg/dL) Urine Leukocyte Esterase Negative (NEG) Urine RBC 1-2 /HPF (0-2) Urine WBC 1-4 /HPF (0-4) Urine Squamous Epithelial Cells Mod /LPF Urine Bacteria Moderate /HPF (0-FEW) Urine Hyaline Casts Moderate /HPF Urine Mucus Slight /LPF Urine Opiates Screen Neg (NEG) Urine Methadone Screen Neg (NEG) Urine Barbiturates Neg (NEG) Urine Phencyclidine Screen Neg (NEG) Urine Amphetamine/Methamphetamine Neg (NEG) Urine Benzodiazepines Screen Neg (NEG) Urine Cocaine Screen Neg (NEG) Urine Cannabinoids Screen Neg (NEG) Urine Ethyl Alcohol Neg (NEG) Test 01/07/17 08:30 Sodium Level 144 mmol/L (136-145) Potassium Level 3.2 mmol/L (3.5-5.1) Chloride Level 105 mmol/L (98-107) Carbon Dioxide Level 30 mmol/L (21-32) Anion Gap 9 (6-14) Blood Urea Nitrogen 23 mg/dL (7-20) Creatinine 0.8 mg/dL (0.6-1.0) Estimated GFR (Cockcroft-Gault) 89.8 Glucose Level 148 mg/dL (70-99) Calcium Level 9.0 mg/dL (8.5-10.1) Magnesium Level 1.6 mg/dL (1.8-2.4) Troponin I Quantitative 0.065 ng/mL (0.000-0.055) Triglycerides Level 56 mg/dL (0-150) Cholesterol Level 119 mg/dL (0-200) LDL Cholesterol, Calculated 42 mg/dL (0-100) VLDL Cholesterol, Calculated 11 mg/dL (0-40) Non-HDL Cholesterol Calculated 53 mg/dL (0-129) HDL Cholesterol 66 mg/dL (40-60) Cholesterol/HDL Ratio 1.8 VTE Prophylaxis Ordered VTE Prophylaxis Devices: Yes VTE Pharmacological Prophylaxi: Yes Assessment/Plan Assessment/Plan 1. PUlm edema, POA, better - 2. SOA, dilated CM in the difftl given heavy etoh use 3. CAD 20% blockage by [facility] Feb 2016 4. Smoker 5. Heavy ETOH 6. HTN PLAN: Admit CIWA Get records [facility] Rpt CXR today Echo done - will ff up results Cards consulted COnt home meds WOF withdrawals NIcotine patch prn Dw Maggie [employer]PER[employer] - cards ZHENG DEVLIN MD Jan 07, 2017 10:47
[2017-01-07] MEDS ORDERED: chlordiazePOXIDE HCL 25 MG CAPSULE PO PRN (11:00)
[2017-01-07] MEDS ORDERED: ALPRAZolam 0.25 MG TABLET PO PRN (11:00)
[2017-01-07] MEDS ORDERED: NICOTINE 21MG PATCH. TD PRN (11:00)
--- NOTE | 2017-01-07 11:42 | PDOC ---
PULMONARY PROGRESS NOTES Vitals Vital Signs Date Time Temp Pulse Resp B/P (MAP) Pulse Ox O2 Delivery O2 Flow Rate FiO2 01/07/17 11:10 98.4 72 12 141/83 (102) 98 Nasal Cannula 4.0 98.4 Lungs: Clear Cardiovascular: S1, S2 Labs Laboratory Tests Test 01/06/17 00:08 01/06/17 23:24 01/06/17 23:43 01/07/17 00:30 O2 Saturation 90 % (92-99) Arterial Blood pH 7.39 (7.35-7.45) Arterial Blood pCO2 at Patient Temp 37 mmHg (35-46) Arterial Blood pO2 at Patient Temp 63 mmHg (75-108) Arterial Blood HCO3 22 mmol/L (21-28) Arterial Blood Base Excess -3 mmol/L (-3-3) FiO2 30.0 White Blood Count 8.5 x10^3/uL (4.0-11.0) Red Blood Count 4.21 x10^6/uL (3.50-5.40) Hemoglobin 12.7 g/dL (12.0-15.5) Hematocrit 40.6 % (36.0-47.0) Mean Corpuscular Volume 97 fL (79-100) Mean Corpuscular Hemoglobin 30 pg (25-35) Mean Corpuscular Hemoglobin Concent 31 g/dL (31-37) Red Cell Distribution Width 14.0 % (11.5-14.5) Platelet Count 192 x10^3/uL (140-400) Neutrophils (%) (Auto) 55 % (31-73) Lymphocytes (%) (Auto) 37 % (24-48) Monocytes (%) (Auto) 6 % (0-9) Eosinophils (%) (Auto) 1 % (0-3) Basophils (%) (Auto) 1 % (0-3) Neutrophils # (Auto) 4.7 x10^3uL (1.8-7.7) Lymphocytes # (Auto) 3.2 x10^3/uL (1.0-4.8) Monocytes # (Auto) 0.5 x10^3/uL (0.0-1.1) Eosinophils # (Auto) 0.1 x10^3/uL (0.0-0.7) Basophils # (Auto) 0.1 x10^3/uL (0.0-0.2) Prothrombin Time 14.1 SEC (11.7-14.0) Prothromb Time International Ratio 1.2 (0.8-1.1) Sodium Level 142 mmol/L (136-145) Potassium Level 3.7 mmol/L (3.5-5.1) Chloride Level 104 mmol/L (98-107) Carbon Dioxide Level 30 mmol/L (21-32) Anion Gap 8 (6-14) Blood Urea Nitrogen 25 mg/dL (7-20) Creatinine 1.2 mg/dL (0.6-1.0) Estimated GFR (Cockcroft-Gault) 56.2 Glucose Level 328 mg/dL (70-99) Lactic Acid Level 3.8 mmol/L (0.4-2.0) Calcium Level 9.1 mg/dL (8.5-10.1) Magnesium Level 1.8 mg/dL (1.8-2.4) Total Bilirubin 0.5 mg/dL (0.2-1.0) Direct Bilirubin 0.2 mg/dL (0.0-0.2) Aspartate Amino Transf (AST/SGOT) 135 U/L (15-37) Alanine Aminotransferase (ALT/SGPT) 105 U/L (14-59) Alkaline Phosphatase 126 U/L (46-116) Creatine Kinase 54 U/L (26-192) Creatine Kinase MB (Mass) 1.0 ng/mL (0.0-3.6) Creatine Kinase MB Relative Index % (0-4) Troponin I Quantitative 0.049 ng/mL (0.000-0.055) MY-Iyu-A-Type Natriuretic Peptide 42475 pg/mL (0-124) Total Protein 6.7 g/dL (6.4-8.2) Albumin 2.8 g/dL (3.4-5.0) Lipase 238 U/L (73-393) Bedside Urine HCG, Qualitative Hcg negative (Negative) Urine Collection Type Unknown Urine Color Yellow Urine Clarity Clear Urine pH 7.0 Urine Specific [place] 1.010 Urine Protein 100 mg/dL (NEG-TRACE) Urine Glucose (UA) 100 mg/dL (NEG) Urine Ketones (Stick) Negative mg/dL (NEG) Urine Blood Small (NEG) Urine Nitrite Negative (NEG) Urine Bilirubin Negative (NEG) Urine Urobilinogen Dipstick 0.2 mg/dL (0.2 mg/dL) Urine Leukocyte Esterase Negative (NEG) Urine RBC 1-2 /HPF (0-2) Urine WBC 1-4 /HPF (0-4) Urine Squamous Epithelial Cells Mod /LPF Urine Bacteria Moderate /HPF (0-FEW) Urine Hyaline Casts Moderate /HPF Urine Mucus Slight /LPF Urine Opiates Screen Neg (NEG) Urine Methadone Screen Neg (NEG) Urine Barbiturates Neg (NEG) Urine Phencyclidine Screen Neg (NEG) Urine Amphetamine/Methamphetamine Neg (NEG) Urine Benzodiazepines Screen Neg (NEG) Urine Cocaine Screen Neg (NEG) Urine Cannabinoids Screen Neg (NEG) Urine Ethyl Alcohol Neg (NEG) Test 01/07/17 02:41 01/07/17 08:30 Lactic Acid Level 1.5 mmol/L (0.4-2.0) Troponin I Quantitative 0.066 ng/mL (0.000-0.055) 0.065 ng/mL (0.000-0.055) Sodium Level 144 mmol/L (136-145) Potassium Level 3.2 mmol/L (3.5-5.1) Chloride Level 105 mmol/L (98-107) Carbon Dioxide Level 30 mmol/L (21-32) Anion Gap 9 (6-14) Blood Urea Nitrogen 23 mg/dL (7-20) Creatinine 0.8 mg/dL (0.6-1.0) Estimated GFR (Cockcroft-Gault) 89.8 Glucose Level 148 mg/dL (70-99) Calcium Level 9.0 mg/dL (8.5-10.1) Magnesium Level 1.6 mg/dL (1.8-2.4) Triglycerides Level 56 mg/dL (0-150) Cholesterol Level 119 mg/dL (0-200) LDL Cholesterol, Calculated 42 mg/dL (0-100) VLDL Cholesterol, Calculated 11 mg/dL (0-40) Non-HDL Cholesterol Calculated 53 mg/dL (0-129) HDL Cholesterol 66 mg/dL (40-60) Cholesterol/HDL Ratio 1.8 Thyroid Stimulating Hormone (TSH) 0.486 uIU/mL (0.358-3.74) Laboratory Tests Test 01/06/17 23:24 01/06/17 23:43 01/07/17 00:30 01/07/17 02:41 White Blood Count 8.5 x10^3/uL (4.0-11.0) Red Blood Count 4.21 x10^6/uL (3.50-5.40) Hemoglobin 12.7 g/dL (12.0-15.5) Hematocrit 40.6 % (36.0-47.0) Mean Corpuscular Volume 97 fL (79-100) Mean Corpuscular Hemoglobin 30 pg (25-35) Mean Corpuscular Hemoglobin Concent 31 g/dL (31-37) Red Cell Distribution Width 14.0 % (11.5-14.5) Platelet Count 192 x10^3/uL (140-400) Neutrophils (%) (Auto) 55 % (31-73) Lymphocytes (%) (Auto) 37 % (24-48) Monocytes (%) (Auto) 6 % (0-9) Eosinophils (%) (Auto) 1 % (0-3) Basophils (%) (Auto) 1 % (0-3) Neutrophils # (Auto) 4.7 x10^3uL (1.8-7.7) Lymphocytes # (Auto) 3.2 x10^3/uL (1.0-4.8) Monocytes # (Auto) 0.5 x10^3/uL (0.0-1.1) Eosinophils # (Auto) 0.1 x10^3/uL (0.0-0.7) Basophils # (Auto) 0.1 x10^3/uL (0.0-0.2) Prothrombin Time 14.1 SEC (11.7-14.0) Prothromb Time International Ratio 1.2 (0.8-1.1) Sodium Level 142 mmol/L (136-145) Potassium Level 3.7 mmol/L (3.5-5.1) Chloride Level 104 mmol/L (98-107) Carbon Dioxide Level 30 mmol/L (21-32) Anion Gap 8 (6-14) Blood Urea Nitrogen 25 mg/dL (7-20) Creatinine 1.2 mg/dL (0.6-1.0) Estimated GFR (Cockcroft-Gault) 56.2 Glucose Level 328 mg/dL (70-99) Lactic Acid Level 3.8 mmol/L (0.4-2.0) 1.5 mmol/L (0.4-2.0) Calcium Level 9.1 mg/dL (8.5-10.1) Magnesium Level 1.8 mg/dL (1.8-2.4) Total Bilirubin 0.5 mg/dL (0.2-1.0) Direct Bilirubin 0.2 mg/dL (0.0-0.2) Aspartate Amino Transf (AST/SGOT) 135 U/L (15-37) Alanine Aminotransferase (ALT/SGPT) 105 U/L (14-59) Alkaline Phosphatase 126 U/L (46-116) Creatine Kinase 54 U/L (26-192) Creatine Kinase MB (Mass) 1.0 ng/mL (0.0-3.6) Creatine Kinase MB Relative Index % (0-4) Troponin I Quantitative 0.049 ng/mL (0.000-0.055) 0.066 ng/mL (0.000-0.055) OW-Qez-T-Type Natriuretic Peptide 89381 pg/mL (0-124) Total Protein 6.7 g/dL (6.4-8.2) Albumin 2.8 g/dL (3.4-5.0) Lipase 238 U/L (73-393) Bedside Urine HCG, Qualitative Hcg negative (Negative) Urine Collection Type Unknown Urine Color Yellow Urine Clarity Clear Urine pH 7.0 Urine Specific [place] 1.010 Urine Protein 100 mg/dL (NEG-TRACE) Urine Glucose (UA) 100 mg/dL (NEG) Urine Ketones (Stick) Negative mg/dL (NEG) Urine Blood Small (NEG) Urine Nitrite Negative (NEG) Urine Bilirubin Negative (NEG) Urine Urobilinogen Dipstick 0.2 mg/dL (0.2 mg/dL) Urine Leukocyte Esterase Negative (NEG) Urine RBC 1-2 /HPF (0-2) Urine WBC 1-4 /HPF (0-4) Urine Squamous Epithelial Cells Mod /LPF Urine Bacteria Moderate /HPF (0-FEW) Urine Hyaline Casts Moderate /HPF Urine Mucus Slight /LPF Urine Opiates Screen Neg (NEG) Urine Methadone Screen Neg (NEG) Urine Barbiturates Neg (NEG) Urine Phencyclidine Screen Neg (NEG) Urine Amphetamine/Methamphetamine Neg (NEG) Urine Benzodiazepines Screen Neg (NEG) Urine Cocaine Screen Neg (NEG) Urine Cannabinoids Screen Neg (NEG) Urine Ethyl Alcohol Neg (NEG) Test 01/07/17 08:30 Sodium Level 144 mmol/L (136-145) Potassium Level 3.2 mmol/L (3.5-5.1) Chloride Level 105 mmol/L (98-107) Carbon Dioxide Level 30 mmol/L (21-32) Anion Gap 9 (6-14) Blood Urea Nitrogen 23 mg/dL (7-20) Creatinine 0.8 mg/dL (0.6-1.0) Estimated GFR (Cockcroft-Gault) 89.8 Glucose Level 148 mg/dL (70-99) Calcium Level 9.0 mg/dL (8.5-10.1) Magnesium Level 1.6 mg/dL (1.8-2.4) Troponin I Quantitative 0.065 ng/mL (0.000-0.055) Triglycerides Level 56 mg/dL (0-150) Cholesterol Level 119 mg/dL (0-200) LDL Cholesterol, Calculated 42 mg/dL (0-100) VLDL Cholesterol, Calculated 11 mg/dL (0-40) Non-HDL Cholesterol Calculated 53 mg/dL (0-129) HDL Cholesterol 66 mg/dL (40-60) Cholesterol/HDL Ratio 1.8 Thyroid Stimulating Hormone (TSH) 0.486 uIU/mL (0.358-3.74) Medications Active Scripts Medications Dose Route/Sig Max Daily Dose Days Date Category Aspir 81 (Aspirin) 81 Mg Tablet.dr 1 Tab PO DAILY 01/07/17 Reported Atorvastatin Calcium 40 Mg Tablet 01/07/17 Reported Carvedilol 25 Mg Tablet 25 Mg PO DAILY 01/07/17 Reported Lisinopril 40 Mg Tablet 01/07/17 Reported Proair Hfa (Albuterol Sulfate) 8.5 Gm Hfa.aer.ad 01/07/17 Reported [Atrovent] 01/07/17 Reported Amlodipine Besylate 5 Mg Tablet 5 Mg PO DAILY 12/15/15 Reported Impression . CONSULT DICTATED AECOPD ACUTE PULM EDEMA SEE ORDERS CT OF CHEST FRANCES HILL MD Jan 07, 2017 11:42
[2017-01-07] MEDS: IPRATRPIUM/ALBUTEROL 0.5/2.5MG 3 ML NEBU. NEB SCH ×3 (11:45→21:10)
[2017-01-07] MEDS: MULTIVITAMIN with MINERAL TABLET. PO SCH (11:54)
[2017-01-07] MEDS: FOLIC ACID 1 MG TABLET. PO SCH (11:54)
[2017-01-07] MEDS: THIAMINE 100 MG TABLET. PO SCH (11:55)
[2017-01-07] MEDS: predniSONE 10 MG TABLET PO SCH (11:55)
[2017-01-07] MEDS ORDERED: MAGNESIUM SULFATE 2GM 50 ML IV ONE (12:30)
[2017-01-07] MEDS ORDERED: POTASSIUM CHLORIDE 20 MEQ TABLET.ER. PO ONE (12:30)
--- NOTE | 2017-01-07 13:32 | RAD ---
Indication shortness of air. Noncontrast imaging through the chest was performed. No prior CT imaging of the chest is available. Note is made of a plain film examination of the chest yesterday. Imaging through the upper abdomen shows no acute finding. There is a mass associated with the left kidney measuring approximately 2 cm which likely reflects a cyst. It is not, however, completely characterized on this examination and nonemergent ultrasound is suggested for additional evaluation and characterization. There is a 2 mm right renal calculus. In the chest there is a trace amount of pericardial fluid. There are few mediastinal lymph nodes. Definite pathologic hilar or mediastinal adenopathy is not seen. There is a small nodule in the left upper lobe peripherally, image 16 series 2, measuring approximately 2 to 3 mm. A dominant soft tissue mass in either lung is not seen. There is some minimal scar or atelectasis in the right upper lobe. IMPRESSION: No acute finding seen in the chest. Trace amount of pericardial fluid. Small, 2 to 3 mm nodule left upper lobe. Follow-up imaging along the lines of the Fleischner criteria should be considered. Minute right renal calculus. 2 cm left renal mass probably reflecting a cyst. Nonemergent ultrasound suggested for additional evaluation and characterization Nodules detected incidentally at non-screening CT Nodule size (mm) less than or equal to 4 Low Risk patients- no follow-up needed High Risk patients- follow-up at 12 months and if no change, no further imaging needed. Nodule size > 4-6 mm Low risk patients- follow- up at 12 months and if no change, no further imaging needed High risk patients- initial follow-up CT at 6-12 months and then at 18-24 months if no change. Nodule Size > 6-8 mm Low risk patients- initial follow-up CT at 6-12 months and then at 18-24 months if no change. High risk patients- initial follow- up CT at 3-6 months and then at 9-12 months if no change, Nodule Size >8 mm Either low or high risk patients: Follow-up CT at around 3, 9 and [address], PET, and/or biopsy Note: newly detected indeterminate nodule in person 35 years of age or older. Low risk patients- minimal or absent history of smoking and/or other known risk factors. High risk patients- history of smoking or of other known risk factors. PQRS Compliance Statement: One or more of the following individualized dose reduction techniques were utilized for this examination: 1. Automated exposure control 2. Adjustment of the mA and/or kV according to patient size 3. Use of iterative reconstruction technique
[2017-01-07] MEDS: FUROSEMIDE 40 MG TABLET. PO SCH (13:40)
--- NOTE | 2017-01-07 13:47 | RAD ---
Indication congestive heart failure. Frontal and lateral views of the chest were obtained and are compared to an examination one day earlier. Cardiomegaly is unchanged. Interstitial changes compatible with congestive heart failure, seen previously, have cleared. There are tiny bilateral pleural effusions. There is no consolidated pneumonia. A new finding in the chest is not seen. IMPRESSION: Stable cardiomegaly. Interval clearing of changes compatible with congestive heart failure. Minute pleural effusions. No new finding seen in the chest
--- NOTE | 2017-01-07 13:55 | CARD ---
APPROVED REPORT EXAM: Two-dimensional and M-mode echocardiogram with Doppler and color Doppler. Other Information Quality : Average Rhythm : NSR INDICATION Congestive Heart Failure 2D DIMENSIONS RVDd3.6 (2.9-3.5cm)Left Atrium(2D)4.6 (1.6-4.0cm) IVSd1.4 (0.7-1.1cm)Aortic Root(2D)3.0 (2.0-3.7cm) LVDd5.5 (3.9-5.9cm)LVOT Diameter2.2 (1.8-2.4cm) PWd1.4 (0.7-1.1cm)LVDs4.1 (2.5-4.0cm) SV74.1 mlLVEF(%)35.4 (>50%) Aortic Valve AoV Peak Gabriele.125.5cm/sAoV VTI22.9cm AO Peak GR.6.3mmHgLVOT Peak Gabriele.120.8cm/s LVOT VTI 20.26cmAO Mean GR.4mmHg DEVIN (VMAX)3.22ig7ADO (VTI)3.40cm2 Mitral Valve MV E Jhpgjwsw88.0cm/sMV DECEL [id number] MV A Jofrcyes183.8cm/sMV E Mean Gr.3mmHg MV KWR74tyB/A Ratio0.7 MV A Krqifnwr57feSGG (PHT)4.81cm2 TDI E/Lateral E'13.4E/Medial E'9.6 Pulmonary Valve PV Peak Qvgfsrvr74.6cm/sPV Peak Grad.3mmHg RVOT VTI20.4cm Tricuspid Valve TR P. Avcsyhey613vw/sRAP PLDDIACQ3qtRx TR Peak Gr.14ssItBJWT41noCj LEFT VENTRICLE The left ventricle is normal size. There is mild concentric left ventricular hypertrophy. Left ventri chey systolic function is moderately impaired. The Ejection Fraction is 35-40%. There is global hypoki nesis of the left ventricle with severe hypokinesis of the inferior wall. Tissue Doppler imaging reve als mild left ventricular diastolic dysfunction. There is no ventricular septal defect visualized. RIGHT VENTRICLE The right ventricle is borderline dilated. The right ventricular systolic function is normal. ATRIA The left atrium is moderately dilated. The right atrium size is normal. The interatrial septum is int act with no evidence for an atrial septal defect or patent foramen ovale as noted on 2-D or Doppler i maging. AORTIC VALVE The aortic valve is not well visualized. Doppler and Color Flow revealed no significant aortic regurg itation. There is no significant aortic valvular stenosis. MITRAL VALVE The mitral valve is normal in structure. There is no mitral valve stenosis. Doppler and Color Flow re vealed mild mitral regurgitation. TRICUSPID VALVE The tricuspid valve is not well visualized. Doppler and Color Flow revealed trace tricuspid regurgita tion. The PA pressure was estimated at 28 mmHg. There is no tricuspid valve stenosis. PULMONIC VALVE The pulmonic valve is not well visualized. Doppler and Color Flow revealed no pulmonic valvular regur gitation. There is no pulmonic valvular stenosis. GREAT VESSELS The aortic root is normal in size. The ascending aorta is normal in size. Normal pulmonary venous ainsley w (Doppler). The IVC is dilated and collapses >50% with inspiration. PERICARDIAL EFFUSION Trace to small anterior pericardial effusion. Critical Notification Date: 01/07/2017 Time: 09:43 Other Discipline : Maggie Larose APRN Critical Value: Yes <Conclusion> Left ventricle systolic function is moderately impaired. The Ejection Fraction is 35-40%. There is global hypokinesis of the left ventricle with severe hypokinesis of the inferior wall. Trace to small anterior pericardial effusion.
--- NOTE | 2017-01-07 15:17 | CONS ---
DATE OF CONSULTATION: 01/07/2017 DATE OF SERVICE: 01/07/2017 ATTENDING PHYSICIAN: Dr. Copeland. REASON FOR CONSULTATION: The patient seen in pulmonary consultation at the request of Dr. Copeland for increasing shortness of breath and abnormal x-ray. HISTORY OF PRESENT ILLNESS: The patient is a 56-year-old that has a history of underlying COPD, has never been hospitalized with acute exacerbation of COPD, does not wear oxygen at home, uses Atrovent, was seen in the [facility] for increasing shortness of breath. She was admitted because of increasing shortness of breath. Per EMS, she was significantly short of breath. She was placed on CPAP. She denied any associated chest pain or pressure. She had O2 saturations of 80% upon EMS arrival. The patient is currently off of CPAP. She is using oxygen supplementation. She denies any prior history of congestive heart failure. No paroxysmal nocturnal dyspnea, pedal edema. She continues to smoke. She also uses marijuana on a daily basis. She denies fever, chills, nausea, vomiting, diarrhea. PAST MEDICAL HISTORY: 1. Coronary artery disease with previous left heart catheterization revealing some mild blockages. 2. Hypertension. 3. Tobacco use. 4. Marijuana use. PAST SURGICAL HISTORY: Status post hysterectomy. SOCIAL HISTORY: She as indicated above, smokes marijuana, tobacco and drinks on a daily basis. ALLERGIES: LISTED TO PENICILLIN. REVIEW OF SYSTEMS: As indicated above, otherwise, a 10-point system was reviewed and negative. CURRENT MEDICATIONS: List was reviewed. Home medication list was likewise reviewed. PHYSICAL EXAMINATION: GENERAL: The patient appeared to be in no respiratory distress. VITAL SIGNS: Stable. O2 saturation was greater than 92%. HEENT: Eyes, the sclerae were nonicteric. NECK: Jugular venous distention was not elevated. No lymphadenopathy. CHEST: Full expansion. LUNGS: Coarse breath sounds with mild expiratory wheeze. CARDIOVASCULAR: Regular rate and rhythm with S1, S2, no S3. ABDOMEN: Soft, nontender, nondistended. EXTREMITIES: No clubbing, cyanosis or pitting edema. NEUROLOGIC: The patient was awake, alert, following commands. A detailed neuro exam was not performed. LABORATORY DATA: Reviewed. White count was normal. Hemoglobin and hematocrit were noted. Arterial blood gas: pH of 7.39, PaCO2 of 37, pO2 of 63 on 30% FiO2. INR was 1.2. Electrolytes were noted. BUN was 23, creatinine was normal. Upon admission, her BUN and creatinine were elevated. AST was elevated. BNP was elevated. Lactic acid level was slightly elevated. RADIOLOGIC IMAGING: Chest x-ray revealed bilateral pulmonary infiltrates compatible with either some chronic changes or mild interstitial edema. IMPRESSION: 1. Acute respiratory failure secondary to suspect combination of pulmonary edema and chronic obstructive pulmonary disease exacerbation. 2. Acute exacerbation of chronic obstructive pulmonary disease. 3. Cardiomyopathy with previous left heart catheterization revealing mild blockages. 4. Tobacco use. 5. Alcoholism. 6. Hypertension. PLAN: 1. Recommend mild diuresis. 2. Continue nebulized treatment. 3. Prednisone. 4. CT chest. 5. I will review the above and make further recommendations. 6. The patient instructed on the importance of discontinuing all illicit drugs including tobacco. I do appreciate the privilege in sharing in the patient's care. FRANCES HILL MD DR: JENNY/mc JOB#: [id number] / [id number]
[2017-01-07] MEDS: ATORVASTATIN CALCIUM 40 MG TABLET. PO SCH (20:33)
[2017-01-08 03:50] VITALS: BP 134/68
--- NOTE | 2017-01-08 05:06 | ACF ---
Admission Forms Criteria RESPIRATORY FAILURE GRG ( Place 'X' for any and all applicable criteria): Hospital admission is needed for appropriate care of the patient because of acute respiratory failure or insufficiency as indicated by 1 or more of the following (1)(2)(3)(4)(5)(6)(7)(8 ): [X]I. Mechanical ventilation needed (acute invasive or noninvasive) [ ]II. Severe ventilation deficit as indicated by 1 or more of the following ( 9) [ ]a) Uncompensated Respiratory acidosis (pH < 7.35 and PaCO2 > 40 mmHg (5.3 kPa)) [ ]b) Airflow measurements < 25% of predicted (eg, PEFR < 100 L/min) [ ]c) FVC < 15 mL/kg of ideal body weight, or 50% decrease in vital capacity from baseline [ ]III. Noncardiac pulmonary edema not resolving with rapid emergency treatment (8) [ ]IV. Severe respiratory distress as indicated by 1 or more of the following: [ ]a) Severe tachypnea (respiratory rate greater than 30, greater than 45 for 6-month-old, greater than 60 for ) [ ]b) Severe hypoxemia (partial pressure of oxygen less than 50 mm Hg ( 6.7 kPa) on greater than 50% oxygen or partial pressure of oxygen to FIO2 ratio less than 200) [ ]c) Mental status deterioration from respiratory disease [ ]V. Airway obstruction or inadequate protection [A](10)(11) The original [employer] content created by [employer] has been revised. The portions of the content which have been revised are identified through the use of italic text, and [facility] has neither reviewed nor approved the modified material. All other unmodified content is copyright [employer]. Please see references footnoted in the original [employer] edition 2014 Admission Criteria Met?: Yes RACHID CÁRDENAS Jan 08, 2017 05:05
[2017-01-08 05:16] LABS: BASO % 0 % (0-3); EOS % 0 % (0-3); HEMOGLOBIN 11.5 g/dL (12.0-15.5); LYMPH # 1.2 x10^3/uL (1.0-4.8); LYMPH % 10 % (24-48); MEAN CORPUSCULAR HEMOGLOBIN 30 pg (25-35); MEAN CORPUSCULAR HGB CONC 33 g/dL (31-37); MEAN CORPUSCULAR VOLUME 93 fL (79-100); MONO % 6 % (0-9); NEUT % 84 % (31-73); PLATELET COUNT 179 x10^3/uL (140-400); RED BLOOD COUNT 3.78 x10^6/uL (3.50-5.40); RED CELL DISTRIBUTION WIDTH 13.6 % (11.5-14.5); WHITE BLOOD COUNT 12.2 x10^3/uL (4.0-11.0)
[2017-01-08 05:22] LABS: CALCIUM 8.9 mg/dL (8.5-10.1); GFR 69.4; POTASSIUM 3.5 mmol/L (3.5-5.1)
[2017-01-08 07:00] VITALS: BP 145/93
[2017-01-08] MEDS: IPRATRPIUM/ALBUTEROL 0.5/2.5MG 3 ML NEBU. NEB SCH ×4 (07:48→19:12)
[2017-01-08] MEDS: ASPIRIN ENTERIC COATED 81 MG TABLET.DR. PO SCH (08:47)
[2017-01-08] MEDS: LISINOPRIL 40 MG TABLET. PO SCH (08:47)
[2017-01-08] MEDS: THIAMINE 100 MG TABLET. PO SCH (08:47)
[2017-01-08] MEDS: FOLIC ACID 1 MG TABLET. PO SCH (08:47)
[2017-01-08] MEDS: FUROSEMIDE 40 MG TABLET. PO SCH (08:48)
[2017-01-08] MEDS: predniSONE 10 MG TABLET PO SCH (08:48)
[2017-01-08] MEDS: amLODIPine BESYLATE 5 MG TABLET PO SCH (08:48)
[2017-01-08] MEDS: MULTIVITAMIN with MINERAL TABLET. PO SCH (08:48)
[2017-01-08] MEDS: CARVEDILOL 12.5 MG TABLET. PO SCH ×2 (08:48→18:20)
[2017-01-08] MEDS: POTASSIUM CHLORIDE 20 MEQ TABLET.ER. PO SCH (08:49)
--- NOTE | 2017-01-08 10:31 | PDOC ---
JOEY MCMAHON PRODUCE ASSOCIATE 01/08/17 1031: CARDIO Progress Notes Date and Time Date of Service 01/08/17 Time of Evaluation 1020 Subjective Subjective: No Chest Pain, No Palpitations, Other (breathing improved although still having some mild SOA) Vitals Vitals Vital Signs Date Time Temp Pulse Resp B/P (MAP) Pulse Ox O2 Delivery O2 Flow Rate FiO2 01/08/17 08:48 75 145/93 01/08/17 07:48 93 Room Air 01/08/17 07:00 98.3 18 98.3 01/07/17 20:00 2.0 Weight Weight [ ] Laboratory Labs Laboratory Tests Test 01/08/17 04:40 White Blood Count 12.2 x10^3/uL (4.0-11.0) Red Blood Count 3.78 x10^6/uL (3.50-5.40) Hemoglobin 11.5 g/dL (12.0-15.5) Hematocrit 35.0 % (36.0-47.0) Mean Corpuscular Volume 93 fL (79-100) Mean Corpuscular Hemoglobin 30 pg (25-35) Mean Corpuscular Hemoglobin Concent 33 g/dL (31-37) Red Cell Distribution Width 13.6 % (11.5-14.5) Platelet Count 179 x10^3/uL (140-400) Neutrophils (%) (Auto) 84 % (31-73) Lymphocytes (%) (Auto) 10 % (24-48) Monocytes (%) (Auto) 6 % (0-9) Eosinophils (%) (Auto) 0 % (0-3) Basophils (%) (Auto) 0 % (0-3) Neutrophils # (Auto) 10.2 x10^3uL (1.8-7.7) Lymphocytes # (Auto) 1.2 x10^3/uL (1.0-4.8) Monocytes # (Auto) 0.8 x10^3/uL (0.0-1.1) Eosinophils # (Auto) 0.0 x10^3/uL (0.0-0.7) Basophils # (Auto) 0.0 x10^3/uL (0.0-0.2) Sodium Level 141 mmol/L (136-145) Potassium Level 3.5 mmol/L (3.5-5.1) Chloride Level 105 mmol/L (98-107) Carbon Dioxide Level 29 mmol/L (21-32) Anion Gap 7 (6-14) Blood Urea Nitrogen 32 mg/dL (7-20) Creatinine 1.0 mg/dL (0.6-1.0) Estimated GFR (Cockcroft-Gault) 69.4 Glucose Level 129 mg/dL (70-99) Calcium Level 8.9 mg/dL (8.5-10.1) Physical Exam HEENT: Neck Supple W Full Motion Chest: Symmetric LUNGS: Other (diminished throughout ) Heart: S1S2, RRR Abdomen: Soft N/T Extremities: No Edema Neurology: alert, oriented, follow commands Assessment Assessment 1. Acute on chronic systolic heart failure with NICM; LVEF 35-40% 2. 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 Chronic alcoholism Recommendations Given recent cardiac cath findings noted below, no further ischemic workup warranted at this time. Continue HF optimization with ACEi, BB, and diuretic Discussed importance of alcohol cessation- patient now wanting to quit. Supportive care F/o in our office with Dr. Virk in 1 month. Repeat echo on an outpatient basis. Records from reviewed: - Echo showed LVEF 50-55%. Small area of hypokinesis involving the distal inferior wall. The LA was mildly enlarged. - 01/18/16 Nuclear stress test; no evidence of ischemia - 02/27/16 LHC; Nonobstructive CAD with 20-30% lesion in the distal RCA. Normal LVEDP. Aggressive risk factor modification was recommended. LILI LEON MD 01/08/17 2213: CARDIO Progress Notes Plan Plan Pt. seen and examined. No acute events overnight. AGree with above ORTHOPEDIC MECHANIC note. Normal exam. Labs reviewed. CT chest unremarkable Inferior wall hypokinesis with an EF of 25% Will discuss need for cath with Dr. Virk, otherwise plan for medical therapy. Low likelihood of progressive CAD. JOEY MCMAHON APRN Jan 08, 2017 10:31 LILI LEON MD Jan 08, 2017 22:13
--- NOTE | 2017-01-08 10:38 | PDOC ---
PROGRESS NOTES Chief Complaint Chief Complaint 1. PUlm edema, POA, better - 2. SOA, dilated CM in the difftl given heavy etoh use 3. CRCA disesase 20-30 % by recent LHC at 4. Smoker 5. Heavy ETOH 6. HTN, controlled History of Present Illness History of Present Illness Still SOA, no CP [facility] records in and I have reviewed with Maggie KEY cards EF was 40 % then, 20-30% lesion RCA, normal LVEDP Thsi LHC was just 1-2 weeks ago PLAN: Might need more diuresis today Watch lytes while IV lasix PT/OT Likely home queenie with cards ff up and etoh cessation Dw CArds Vitals Vitals Vital Signs Date Time Temp Pulse Resp B/P (MAP) Pulse Ox O2 Delivery O2 Flow Rate FiO2 01/08/17 08:48 75 145/93 01/08/17 07:48 93 Room Air 01/08/17 07:00 98.3 18 98.3 01/07/17 20:00 2.0 Physical Exam General: Alert, Oriented X3, Cooperative, No acute distress Heart: Regular rate, Normal S1, Normal S2, No murmurs, Other Lungs: Clear Abdomen: Soft, No tenderness Extremities: No edema, Normal pulses Skin: No breakdown, No significant lesion Labs LABS Laboratory Tests Test 01/08/17 04:40 White Blood Count 12.2 x10^3/uL (4.0-11.0) Red Blood Count 3.78 x10^6/uL (3.50-5.40) Hemoglobin 11.5 g/dL (12.0-15.5) Hematocrit 35.0 % (36.0-47.0) Mean Corpuscular Volume 93 fL (79-100) Mean Corpuscular Hemoglobin 30 pg (25-35) Mean Corpuscular Hemoglobin Concent 33 g/dL (31-37) Red Cell Distribution Width 13.6 % (11.5-14.5) Platelet Count 179 x10^3/uL (140-400) Neutrophils (%) (Auto) 84 % (31-73) Lymphocytes (%) (Auto) 10 % (24-48) Monocytes (%) (Auto) 6 % (0-9) Eosinophils (%) (Auto) 0 % (0-3) Basophils (%) (Auto) 0 % (0-3) Neutrophils # (Auto) 10.2 x10^3uL (1.8-7.7) Lymphocytes # (Auto) 1.2 x10^3/uL (1.0-4.8) Monocytes # (Auto) 0.8 x10^3/uL (0.0-1.1) Eosinophils # (Auto) 0.0 x10^3/uL (0.0-0.7) Basophils # (Auto) 0.0 x10^3/uL (0.0-0.2) Sodium Level 141 mmol/L (136-145) Potassium Level 3.5 mmol/L (3.5-5.1) Chloride Level 105 mmol/L (98-107) Carbon Dioxide Level 29 mmol/L (21-32) Anion Gap 7 (6-14) Blood Urea Nitrogen 32 mg/dL (7-20) Creatinine 1.0 mg/dL (0.6-1.0) Estimated GFR (Cockcroft-Gault) 69.4 Glucose Level 129 mg/dL (70-99) Calcium Level 8.9 mg/dL (8.5-10.1) Review of Systems Review of Systems SOA Comment Review of Relevant I have reviewed the following items nidia (where applicable) has been applied. Labs Laboratory Tests Test 01/06/17 23:24 01/06/17 23:43 01/07/17 00:30 01/07/17 02:41 White Blood Count 8.5 x10^3/uL (4.0-11.0) Red Blood Count 4.21 x10^6/uL (3.50-5.40) Hemoglobin 12.7 g/dL (12.0-15.5) Hematocrit 40.6 % (36.0-47.0) Mean Corpuscular Volume 97 fL (79-100) Mean Corpuscular Hemoglobin 30 pg (25-35) Mean Corpuscular Hemoglobin Concent 31 g/dL (31-37) Red Cell Distribution Width 14.0 % (11.5-14.5) Platelet Count 192 x10^3/uL (140-400) Neutrophils (%) (Auto) 55 % (31-73) Lymphocytes (%) (Auto) 37 % (24-48) Monocytes (%) (Auto) 6 % (0-9) Eosinophils (%) (Auto) 1 % (0-3) Basophils (%) (Auto) 1 % (0-3) Neutrophils # (Auto) 4.7 x10^3uL (1.8-7.7) Lymphocytes # (Auto) 3.2 x10^3/uL (1.0-4.8) Monocytes # (Auto) 0.5 x10^3/uL (0.0-1.1) Eosinophils # (Auto) 0.1 x10^3/uL (0.0-0.7) Basophils # (Auto) 0.1 x10^3/uL (0.0-0.2) Prothrombin Time 14.1 SEC (11.7-14.0) Prothromb Time International Ratio 1.2 (0.8-1.1) Sodium Level 142 mmol/L (136-145) Potassium Level 3.7 mmol/L (3.5-5.1) Chloride Level 104 mmol/L (98-107) Carbon Dioxide Level 30 mmol/L (21-32) Anion Gap 8 (6-14) Blood Urea Nitrogen 25 mg/dL (7-20) Creatinine 1.2 mg/dL (0.6-1.0) Estimated GFR (Cockcroft-Gault) 56.2 Glucose Level 328 mg/dL (70-99) Lactic Acid Level 3.8 mmol/L (0.4-2.0) 1.5 mmol/L (0.4-2.0) Calcium Level 9.1 mg/dL (8.5-10.1) Magnesium Level 1.8 mg/dL (1.8-2.4) Total Bilirubin 0.5 mg/dL (0.2-1.0) Direct Bilirubin 0.2 mg/dL (0.0-0.2) Aspartate Amino Transf (AST/SGOT) 135 U/L (15-37) Alanine Aminotransferase (ALT/SGPT) 105 U/L (14-59) Alkaline Phosphatase 126 U/L (46-116) Creatine Kinase 54 U/L (26-192) Creatine Kinase MB (Mass) 1.0 ng/mL (0.0-3.6) Creatine Kinase MB Relative Index % (0-4) Troponin I Quantitative 0.049 ng/mL (0.000-0.055) 0.066 ng/mL (0.000-0.055) VM-Zuk-B-Type Natriuretic Peptide 22351 pg/mL (0-124) Total Protein 6.7 g/dL (6.4-8.2) Albumin 2.8 g/dL (3.4-5.0) Lipase 238 U/L (73-393) Bedside Urine HCG, Qualitative Hcg negative (Negative) Urine Collection Type Unknown Urine Color Yellow Urine Clarity Clear Urine pH 7.0 Urine Specific [place] 1.010 Urine Protein 100 mg/dL (NEG-TRACE) Urine Glucose (UA) 100 mg/dL (NEG) Urine Ketones (Stick) Negative mg/dL (NEG) Urine Blood Small (NEG) Urine Nitrite Negative (NEG) Urine Bilirubin Negative (NEG) Urine Urobilinogen Dipstick 0.2 mg/dL (0.2 mg/dL) Urine Leukocyte Esterase Negative (NEG) Urine RBC 1-2 /HPF (0-2) Urine WBC 1-4 /HPF (0-4) Urine Squamous Epithelial Cells Mod /LPF Urine Bacteria Moderate /HPF (0-FEW) Urine Hyaline Casts Moderate /HPF Urine Mucus Slight /LPF Urine Opiates Screen Neg (NEG) Urine Methadone Screen Neg (NEG) Urine Barbiturates Neg (NEG) Urine Phencyclidine Screen Neg (NEG) Urine Amphetamine/Methamphetamine Neg (NEG) Urine Benzodiazepines Screen Neg (NEG) Urine Cocaine Screen Neg (NEG) Urine Cannabinoids Screen Neg (NEG) Urine Ethyl Alcohol Neg (NEG) Test 01/07/17 08:30 01/08/17 04:40 Sodium Level 144 mmol/L (136-145) 141 mmol/L (136-145) Potassium Level 3.2 mmol/L (3.5-5.1) 3.5 mmol/L (3.5-5.1) Chloride Level 105 mmol/L (98-107) 105 mmol/L (98-107) Carbon Dioxide Level 30 mmol/L (21-32) 29 mmol/L (21-32) Anion Gap 9 (6-14) 7 (6-14) Blood Urea Nitrogen 23 mg/dL (7-20) 32 mg/dL (7-20) Creatinine 0.8 mg/dL (0.6-1.0) 1.0 mg/dL (0.6-1.0) Estimated GFR (Cockcroft-Gault) 89.8 69.4 Glucose Level 148 mg/dL (70-99) 129 mg/dL (70-99) Calcium Level 9.0 mg/dL (8.5-10.1) 8.9 mg/dL (8.5-10.1) Magnesium Level 1.6 mg/dL (1.8-2.4) Troponin I Quantitative 0.065 ng/mL (0.000-0.055) Triglycerides Level 56 mg/dL (0-150) Cholesterol Level 119 mg/dL (0-200) LDL Cholesterol, Calculated 42 mg/dL (0-100) VLDL Cholesterol, Calculated 11 mg/dL (0-40) Non-HDL Cholesterol Calculated 53 mg/dL (0-129) HDL Cholesterol 66 mg/dL (40-60) Cholesterol/HDL Ratio 1.8 Thyroid Stimulating Hormone (TSH) 0.486 uIU/mL (0.358-3.74) White Blood Count 12.2 x10^3/uL (4.0-11.0) Red Blood Count 3.78 x10^6/uL (3.50-5.40) Hemoglobin 11.5 g/dL (12.0-15.5) Hematocrit 35.0 % (36.0-47.0) Mean Corpuscular Volume 93 fL (79-100) Mean Corpuscular Hemoglobin 30 pg (25-35) Mean Corpuscular Hemoglobin Concent 33 g/dL (31-37) Red Cell Distribution Width 13.6 % (11.5-14.5) Platelet Count 179 x10^3/uL (140-400) Neutrophils (%) (Auto) 84 % (31-73) Lymphocytes (%) (Auto) 10 % (24-48) Monocytes (%) (Auto) 6 % (0-9) Eosinophils (%) (Auto) 0 % (0-3) Basophils (%) (Auto) 0 % (0-3) Neutrophils # (Auto) 10.2 x10^3uL (1.8-7.7) Lymphocytes # (Auto) 1.2 x10^3/uL (1.0-4.8) Monocytes # (Auto) 0.8 x10^3/uL (0.0-1.1) Eosinophils # (Auto) 0.0 x10^3/uL (0.0-0.7) Basophils # (Auto) 0.0 x10^3/uL (0.0-0.2) Laboratory Tests Test 01/08/17 04:40 White Blood Count 12.2 x10^3/uL (4.0-11.0) Red Blood Count 3.78 x10^6/uL (3.50-5.40) Hemoglobin 11.5 g/dL (12.0-15.5) Hematocrit 35.0 % (36.0-47.0) Mean Corpuscular Volume 93 fL (79-100) Mean Corpuscular Hemoglobin 30 pg (25-35) Mean Corpuscular Hemoglobin Concent 33 g/dL (31-37) Red Cell Distribution Width 13.6 % (11.5-14.5) Platelet Count 179 x10^3/uL (140-400) Neutrophils (%) (Auto) 84 % (31-73) Lymphocytes (%) (Auto) 10 % (24-48) Monocytes (%) (Auto) 6 % (0-9) Eosinophils (%) (Auto) 0 % (0-3) Basophils (%) (Auto) 0 % (0-3) Neutrophils # (Auto) 10.2 x10^3uL (1.8-7.7) Lymphocytes # (Auto) 1.2 x10^3/uL (1.0-4.8) Monocytes # (Auto) 0.8 x10^3/uL (0.0-1.1) Eosinophils # (Auto) 0.0 x10^3/uL (0.0-0.7) Basophils # (Auto) 0.0 x10^3/uL (0.0-0.2) Sodium Level 141 mmol/L (136-145) Potassium Level 3.5 mmol/L (3.5-5.1) Chloride Level 105 mmol/L (98-107) Carbon Dioxide Level 29 mmol/L (21-32) Anion Gap 7 (6-14) Blood Urea Nitrogen 32 mg/dL (7-20) Creatinine 1.0 mg/dL (0.6-1.0) Estimated GFR (Cockcroft-Gault) 69.4 Glucose Level 129 mg/dL (70-99) Calcium Level 8.9 mg/dL (8.5-10.1) Medications Current Medications Methylprednisolone Sodium Succinate (SOLU-Medrol 125MG VIAL) 125 mg 1X ONCE IV Last administered on 01/06/17 23:36; Start 01/06/17 at 23:45; Stop 01/06/17 at 23:46; Status DC Albuterol/ Ipratropium (Duoneb) 3 ml STK-MED ONCE .ROUTE ; Start 01/06/17 at 23: 33; Stop 01/06/17 at 23:34; Status DC Furosemide (Lasix) 40 mg 1X ONCE IVP Last administered on 01/07/17 00:14; Start 01/07/17 at 00:15; Stop 01/07/17 at 00:16; Status DC Labetalol HCl (Normodyne) 20 mg PRN Q2HR PRN IVP HYPERTENSION, SEE COMMENTS Last administered on 01/07/17 03:59; Start 01/07/17 at 00:15 Ondansetron HCl (Zofran) 4 mg PRN Q8HRS PRN IV NAUSEA/VOMITING; Start 01/07/17 at 01:00; Stop 01/07/17 at 09:09; Status DC Ondansetron HCl (Zofran) 4 mg PRN Q6HRS PRN IV NAUSEA/VOMITING; Start 01/07/17 at 09:15; Stop 01/08/17 at 09:14; Status DC Acetaminophen (Tylenol) 500 mg PRN Q6HRS PRN PO MILD PAIN / TEMP; Start at 09:15 Guaifenesin (Robitussin Dm) 10 ml PRN Q6HRS PRN PO COUGH; Start 01/07/17 at 09: 15 Albuterol/ Ipratropium (Duoneb) 3 ml RTQID NEB Last administered on 01/08/17 07:48; Start 01/07/17 at 12:00 Amlodipine Besylate (Norvasc) 5 mg DAILY PO Last administered on 01/08/17 08: 48; Start 01/07/17 at 10:00 Aspirin (Ecotrin) 81 mg DAILY PO Last administered on 01/08/17 08:47; Start at 10:00 Atorvastatin Calcium (Lipitor) 40 mg QHS PO Last administered on 01/07/17 20: 33; Start 01/07/17 at 21:00 Lisinopril (Prinivil) 40 mg DAILY PO Last administered on 01/08/17 08:47; Start 01/07/17 at 10:00 Carvedilol (Coreg) 25 mg BIDWMEALS PO Last administered on 01/08/17 08:48; Start 01/07/17 at 10:00 Nicotine (Nicoderm Cq 21mg) 1 patch PRN DAILY PRN TD SMOKING CESSATION; Start 01/07/17 at 11:00 Alprazolam (Xanax) 0.25 mg PRN Q8HRS PRN PO ANXIETY / AGITATION; Start at 11:00 Chlordiazepoxide (Librium) 25 mg PRN Q6HRS PRN PO ANXIETY / AGITATION; Start at 11:00 Thiamine Mononitrate (Vitamin B-1) 100 mg DAILY PO Last administered on 08:47; Start 01/07/17 at 11:00 Multivitamins (Thera M Plus) 1 tab DAILY PO Last administered on 01/08/17 08: 48; Start 01/07/17 at 11:00 Folic Acid (Folic Acid) 1 mg DAILY PO Last administered on 01/08/17 08:47; Start 01/07/17 at 11:00 Prednisone (Prednisone) 30 mg DAILY PO Last administered on 01/08/17 08:48; Start 01/07/17 at 12:00 Potassium Chloride (Klor-Con) 40 meq 1X ONCE PO Last administered on 13:39; Start 01/07/17 at 12:30; Stop 01/07/17 at 12:31; Status DC Magnesium Sulfate/ Dextrose 50 ml @ 25 mls/hr 1X ONCE IV Last administered on 01/07/17 13:48; Start 01/07/17 at 12:30; Stop 01/07/17 at 14:29; Status DC Furosemide (Lasix) 40 mg DAILY PO Last administered on 01/08/17 08:48; Start 01/07/17 at 12:30 Potassium Chloride (Klor-Con) 20 meq DAILYWBKFT PO Last administered on 08:49; Start 01/08/17 at 08:00 Active Scripts Active Reported Aspir 81 (Aspirin) 81 Mg Tablet.dr 1 Tab PO DAILY Atorvastatin Calcium 40 Mg Tablet Carvedilol 25 Mg Tablet 25 Mg PO DAILY Lisinopril 40 Mg Tablet Proair Hfa (Albuterol Sulfate) 8.5 Gm Hfa.aer.ad [Atrovent] Amlodipine Besylate 5 Mg Tablet 5 Mg PO DAILY Vitals/I & O Vital Sign - Last 24 Hours 01/07/17 01/07/17 01/07/17 01/07/17 11:10 11:48 15:00 16:34 Temp 98.4 98.5 98.4 98.5 Pulse 72 78 Resp 12 18 B/P (MAP) 141/83 (102) 119/68 (85) Pulse Ox 98 96 96 93 O2 Delivery Nasal Cannula Nasal Cannula Nasal Cannula Room Air O2 Flow Rate 4.0 2.0 2.0 01/07/17 01/07/17 01/07/17 01/07/17 17:37 19:00 20:00 21:10 Temp 98.2 98.2 Pulse 90 85 Resp 18 B/P (MAP) 119/68 135/85 (102) Pulse Ox 96 96 O2 Delivery Room Air Nasal Cannula Room Air O2 Flow Rate 2.0 01/07/17 01/08/17 01/08/17 01/08/17 22:54 03:50 07:00 07:48 Temp 98.4 98.3 98.3 98.4 98.3 98.3 Pulse 90 74 75 Resp 18 18 18 B/P (MAP) 124/76 (92) 134/68 (90) 145/93 (110) Pulse Ox 94 96 98 93 O2 Delivery Room Air Room Air Room Air Room Air 01/08/17 01/08/17 01/08/17 08:47 08:48 08:48 Pulse 75 75 75 B/P (MAP) 145/93 145/93 145/93 ZHENG DEVLIN MD Jan 08, 2017 10:38
[2017-01-08] MEDS ORDERED: FUROSEMIDE 40 MG/4 ML VIAL. IVP ONE (10:45)
[2017-01-08 11:00] VITALS: BP 123/83
[2017-01-08] MEDS ORDERED: POTASSIUM CHLORIDE 20 MEQ TABLET.ER. PO ONE (12:15)
[2017-01-08 15:00] VITALS: BP 125/83
--- NOTE | 2017-01-08 15:21 | PDOC ---
PULMONARY PROGRESS NOTES Subjective PT WITH NO INCREASE SOA Vitals Vital Signs Date Time Temp Pulse Resp B/P (MAP) Pulse Ox O2 Delivery O2 Flow Rate FiO2 01/08/17 12:09 96 Room Air 01/08/17 11:00 98.0 76 16 123/83 (96) 98.0 01/07/17 20:00 2.0 ROS: No Nausea, No Chest Pain, No Abdominal Pain Lungs: Clear Cardiovascular: S1, S2 Abdomen: Soft, Non-tender Neuro Exam: Alert Extremities: No Edema Skin: Warm Labs Laboratory Tests Test 01/06/17 23:24 01/06/17 23:43 01/07/17 00:30 01/07/17 02:41 White Blood Count 8.5 x10^3/uL (4.0-11.0) Red Blood Count 4.21 x10^6/uL (3.50-5.40) Hemoglobin 12.7 g/dL (12.0-15.5) Hematocrit 40.6 % (36.0-47.0) Mean Corpuscular Volume 97 fL (79-100) Mean Corpuscular Hemoglobin 30 pg (25-35) Mean Corpuscular Hemoglobin Concent 31 g/dL (31-37) Red Cell Distribution Width 14.0 % (11.5-14.5) Platelet Count 192 x10^3/uL (140-400) Neutrophils (%) (Auto) 55 % (31-73) Lymphocytes (%) (Auto) 37 % (24-48) Monocytes (%) (Auto) 6 % (0-9) Eosinophils (%) (Auto) 1 % (0-3) Basophils (%) (Auto) 1 % (0-3) Neutrophils # (Auto) 4.7 x10^3uL (1.8-7.7) Lymphocytes # (Auto) 3.2 x10^3/uL (1.0-4.8) Monocytes # (Auto) 0.5 x10^3/uL (0.0-1.1) Eosinophils # (Auto) 0.1 x10^3/uL (0.0-0.7) Basophils # (Auto) 0.1 x10^3/uL (0.0-0.2) Prothrombin Time 14.1 SEC (11.7-14.0) Prothromb Time International Ratio 1.2 (0.8-1.1) Sodium Level 142 mmol/L (136-145) Potassium Level 3.7 mmol/L (3.5-5.1) Chloride Level 104 mmol/L (98-107) Carbon Dioxide Level 30 mmol/L (21-32) Anion Gap 8 (6-14) Blood Urea Nitrogen 25 mg/dL (7-20) Creatinine 1.2 mg/dL (0.6-1.0) Estimated GFR (Cockcroft-Gault) 56.2 Glucose Level 328 mg/dL (70-99) Lactic Acid Level 3.8 mmol/L (0.4-2.0) 1.5 mmol/L (0.4-2.0) Calcium Level 9.1 mg/dL (8.5-10.1) Magnesium Level 1.8 mg/dL (1.8-2.4) Total Bilirubin 0.5 mg/dL (0.2-1.0) Direct Bilirubin 0.2 mg/dL (0.0-0.2) Aspartate Amino Transf (AST/SGOT) 135 U/L (15-37) Alanine Aminotransferase (ALT/SGPT) 105 U/L (14-59) Alkaline Phosphatase 126 U/L (46-116) Creatine Kinase 54 U/L (26-192) Creatine Kinase MB (Mass) 1.0 ng/mL (0.0-3.6) Creatine Kinase MB Relative Index % (0-4) Troponin I Quantitative 0.049 ng/mL (0.000-0.055) 0.066 ng/mL (0.000-0.055) NN-Sve-N-Type Natriuretic Peptide 30166 pg/mL (0-124) Total Protein 6.7 g/dL (6.4-8.2) Albumin 2.8 g/dL (3.4-5.0) Lipase 238 U/L (73-393) Bedside Urine HCG, Qualitative Hcg negative (Negative) Urine Collection Type Unknown Urine Color Yellow Urine Clarity Clear Urine pH 7.0 Urine Specific [place] 1.010 Urine Protein 100 mg/dL (NEG-TRACE) Urine Glucose (UA) 100 mg/dL (NEG) Urine Ketones (Stick) Negative mg/dL (NEG) Urine Blood Small (NEG) Urine Nitrite Negative (NEG) Urine Bilirubin Negative (NEG) Urine Urobilinogen Dipstick 0.2 mg/dL (0.2 mg/dL) Urine Leukocyte Esterase Negative (NEG) Urine RBC 1-2 /HPF (0-2) Urine WBC 1-4 /HPF (0-4) Urine Squamous Epithelial Cells Mod /LPF Urine Bacteria Moderate /HPF (0-FEW) Urine Hyaline Casts Moderate /HPF Urine Mucus Slight /LPF Urine Opiates Screen Neg (NEG) Urine Methadone Screen Neg (NEG) Urine Barbiturates Neg (NEG) Urine Phencyclidine Screen Neg (NEG) Urine Amphetamine/Methamphetamine Neg (NEG) Urine Benzodiazepines Screen Neg (NEG) Urine Cocaine Screen Neg (NEG) Urine Cannabinoids Screen Neg (NEG) Urine Ethyl Alcohol Neg (NEG) Test 01/07/17 08:30 01/08/17 04:40 Sodium Level 144 mmol/L (136-145) 141 mmol/L (136-145) Potassium Level 3.2 mmol/L (3.5-5.1) 3.5 mmol/L (3.5-5.1) Chloride Level 105 mmol/L (98-107) 105 mmol/L (98-107) Carbon Dioxide Level 30 mmol/L (21-32) 29 mmol/L (21-32) Anion Gap 9 (6-14) 7 (6-14) Blood Urea Nitrogen 23 mg/dL (7-20) 32 mg/dL (7-20) Creatinine 0.8 mg/dL (0.6-1.0) 1.0 mg/dL (0.6-1.0) Estimated GFR (Cockcroft-Gault) 89.8 69.4 Glucose Level 148 mg/dL (70-99) 129 mg/dL (70-99) Calcium Level 9.0 mg/dL (8.5-10.1) 8.9 mg/dL (8.5-10.1) Magnesium Level 1.6 mg/dL (1.8-2.4) 2.2 mg/dL (1.8-2.4) Troponin I Quantitative 0.065 ng/mL (0.000-0.055) Triglycerides Level 56 mg/dL (0-150) Cholesterol Level 119 mg/dL (0-200) LDL Cholesterol, Calculated 42 mg/dL (0-100) VLDL Cholesterol, Calculated 11 mg/dL (0-40) Non-HDL Cholesterol Calculated 53 mg/dL (0-129) HDL Cholesterol 66 mg/dL (40-60) Cholesterol/HDL Ratio 1.8 Thyroid Stimulating Hormone (TSH) 0.486 uIU/mL (0.358-3.74) White Blood Count 12.2 x10^3/uL (4.0-11.0) Red Blood Count 3.78 x10^6/uL (3.50-5.40) Hemoglobin 11.5 g/dL (12.0-15.5) Hematocrit 35.0 % (36.0-47.0) Mean Corpuscular Volume 93 fL (79-100) Mean Corpuscular Hemoglobin 30 pg (25-35) Mean Corpuscular Hemoglobin Concent 33 g/dL (31-37) Red Cell Distribution Width 13.6 % (11.5-14.5) Platelet Count 179 x10^3/uL (140-400) Neutrophils (%) (Auto) 84 % (31-73) Lymphocytes (%) (Auto) 10 % (24-48) Monocytes (%) (Auto) 6 % (0-9) Eosinophils (%) (Auto) 0 % (0-3) Basophils (%) (Auto) 0 % (0-3) Neutrophils # (Auto) 10.2 x10^3uL (1.8-7.7) Lymphocytes # (Auto) 1.2 x10^3/uL (1.0-4.8) Monocytes # (Auto) 0.8 x10^3/uL (0.0-1.1) Eosinophils # (Auto) 0.0 x10^3/uL (0.0-0.7) Basophils # (Auto) 0.0 x10^3/uL (0.0-0.2) Laboratory Tests Test 01/08/17 04:40 White Blood Count 12.2 x10^3/uL (4.0-11.0) Red Blood Count 3.78 x10^6/uL (3.50-5.40) Hemoglobin 11.5 g/dL (12.0-15.5) Hematocrit 35.0 % (36.0-47.0) Mean Corpuscular Volume 93 fL (79-100) Mean Corpuscular Hemoglobin 30 pg (25-35) Mean Corpuscular Hemoglobin Concent 33 g/dL (31-37) Red Cell Distribution Width 13.6 % (11.5-14.5) Platelet Count 179 x10^3/uL (140-400) Neutrophils (%) (Auto) 84 % (31-73) Lymphocytes (%) (Auto) 10 % (24-48) Monocytes (%) (Auto) 6 % (0-9) Eosinophils (%) (Auto) 0 % (0-3) Basophils (%) (Auto) 0 % (0-3) Neutrophils # (Auto) 10.2 x10^3uL (1.8-7.7) Lymphocytes # (Auto) 1.2 x10^3/uL (1.0-4.8) Monocytes # (Auto) 0.8 x10^3/uL (0.0-1.1) Eosinophils # (Auto) 0.0 x10^3/uL (0.0-0.7) Basophils # (Auto) 0.0 x10^3/uL (0.0-0.2) Sodium Level 141 mmol/L (136-145) Potassium Level 3.5 mmol/L (3.5-5.1) Chloride Level 105 mmol/L (98-107) Carbon Dioxide Level 29 mmol/L (21-32) Anion Gap 7 (6-14) Blood Urea Nitrogen 32 mg/dL (7-20) Creatinine 1.0 mg/dL (0.6-1.0) Estimated GFR (Cockcroft-Gault) 69.4 Glucose Level 129 mg/dL (70-99) Calcium Level 8.9 mg/dL (8.5-10.1) Magnesium Level 2.2 mg/dL (1.8-2.4) Medications Active Scripts Medications Dose Route/Sig Max Daily Dose Days Date Category Aspir 81 (Aspirin) 81 Mg Tablet.dr 1 Tab PO DAILY 01/07/17 Reported Atorvastatin Calcium 40 Mg Tablet 01/07/17 Reported Carvedilol 25 Mg Tablet 25 Mg PO DAILY 01/07/17 Reported Lisinopril 40 Mg Tablet 01/07/17 Reported Proair Hfa (Albuterol Sulfate) 8.5 Gm Hfa.aer.ad 01/07/17 Reported [Atrovent] 01/07/17 Reported Amlodipine Besylate 5 Mg Tablet 5 Mg PO DAILY 12/15/15 Reported Impression . IMPRESSION: 1. Acute respiratory failure secondary to suspect combination of pulmonary edema and chronic obstructive pulmonary disease exacerbation. 2. Acute exacerbation of chronic obstructive pulmonary disease. 3. Cardiomyopathy with previous left heart catheterization revealing mild blockages. 4. Tobacco use. 5. Alcoholism. 6. Hypertension. IMPRESSION: No acute finding seen in the chest. Trace amount of pericardial fluid. Small, 2 to 3 mm nodule left upper lobe. Follow-up imaging along the lines of the Fleischner criteria should be considered. Minute right renal calculus. 2 cm left renal mass probably reflecting a cyst. Nonemergent ultrasound suggested for additional evaluation and characterization Plan . PT FEELS BETTER AGREE WITH DR Spangler NEEDS TO QUIT ALCOHOL AND TOBACCO D/C IN AM FOLLOW UP WITH ME IN [address] CHEST 1. Recommend mild diuresis. 2. Continue nebulized treatment. 3. Prednisone. 4. CT chest, REPORT NOTED D/W WITH PATENTS FRANCES HILL MD Jan 08, 2017 15:21
[2017-01-08 19:20] VITALS: BP 130/87
[2017-01-08] MEDS: ATORVASTATIN CALCIUM 40 MG TABLET. PO SCH (22:30)
[2017-01-08 23:25] VITALS: BP 133/86
[2017-01-09 03:31] VITALS: BP 145/95
[2017-01-09 05:45] LABS: CALCIUM 8.1 mg/dL (8.5-10.1); CREATININE 0.8 mg/dL (0.6-1.0); GFR 89.8; POTASSIUM 3.5 mmol/L (3.5-5.1)
[2017-01-09 07:45] VITALS: BP 152/96
[2017-01-09] MEDS: IPRATRPIUM/ALBUTEROL 0.5/2.5MG 3 ML NEBU. NEB SCH ×2 (07:53→11:13)
[2017-01-09] MEDS: MULTIVITAMIN with MINERAL TABLET. PO SCH (08:59)
[2017-01-09] MEDS: FOLIC ACID 1 MG TABLET. PO SCH (08:59)
[2017-01-09] MEDS: FUROSEMIDE 40 MG TABLET. PO SCH (08:59)
[2017-01-09] MEDS: ASPIRIN ENTERIC COATED 81 MG TABLET.DR. PO SCH (08:59)
[2017-01-09] MEDS: predniSONE 10 MG TABLET PO SCH (09:00)
[2017-01-09] MEDS: THIAMINE 100 MG TABLET. PO SCH (09:00)
[2017-01-09] MEDS: LISINOPRIL 40 MG TABLET. PO SCH (09:00)
[2017-01-09] MEDS: amLODIPine BESYLATE 5 MG TABLET PO SCH (09:01)
[2017-01-09] MEDS: POTASSIUM CHLORIDE 20 MEQ TABLET.ER. PO SCH (09:01)
[2017-01-09] MEDS: CARVEDILOL 12.5 MG TABLET. PO SCH (09:02)
--- NOTE | 2017-01-09 09:09 | PDOC ---
PULMONARY PROGRESS NOTES Subjective PT WITH NO INCREASE SOA Vitals Vital Signs Date Time Temp Pulse Resp B/P (MAP) Pulse Ox O2 Delivery O2 Flow Rate FiO2 01/09/17 09:02 79 152/96 01/09/17 07:55 94 Room Air 01/09/17 07:45 98.4 19 98.4 ROS: No Nausea, No Chest Pain, No Abdominal Pain Lungs: Clear Cardiovascular: S1, S2 Abdomen: Soft, Non-tender Neuro Exam: Alert Extremities: No Edema Skin: Warm Labs Laboratory Tests Test 01/08/17 04:40 01/09/17 03:50 White Blood Count 12.2 x10^3/uL (4.0-11.0) Red Blood Count 3.78 x10^6/uL (3.50-5.40) Hemoglobin 11.5 g/dL (12.0-15.5) Hematocrit 35.0 % (36.0-47.0) Mean Corpuscular Volume 93 fL (79-100) Mean Corpuscular Hemoglobin 30 pg (25-35) Mean Corpuscular Hemoglobin Concent 33 g/dL (31-37) Red Cell Distribution Width 13.6 % (11.5-14.5) Platelet Count 179 x10^3/uL (140-400) Neutrophils (%) (Auto) 84 % (31-73) Lymphocytes (%) (Auto) 10 % (24-48) Monocytes (%) (Auto) 6 % (0-9) Eosinophils (%) (Auto) 0 % (0-3) Basophils (%) (Auto) 0 % (0-3) Neutrophils # (Auto) 10.2 x10^3uL (1.8-7.7) Lymphocytes # (Auto) 1.2 x10^3/uL (1.0-4.8) Monocytes # (Auto) 0.8 x10^3/uL (0.0-1.1) Eosinophils # (Auto) 0.0 x10^3/uL (0.0-0.7) Basophils # (Auto) 0.0 x10^3/uL (0.0-0.2) Sodium Level 141 mmol/L (136-145) 142 mmol/L (136-145) Potassium Level 3.5 mmol/L (3.5-5.1) 3.5 mmol/L (3.5-5.1) Chloride Level 105 mmol/L (98-107) 104 mmol/L (98-107) Carbon Dioxide Level 29 mmol/L (21-32) 29 mmol/L (21-32) Anion Gap 7 (6-14) 9 (6-14) Blood Urea Nitrogen 32 mg/dL (7-20) 29 mg/dL (7-20) Creatinine 1.0 mg/dL (0.6-1.0) 0.8 mg/dL (0.6-1.0) Estimated GFR (Cockcroft-Gault) 69.4 89.8 Glucose Level 129 mg/dL (70-99) 93 mg/dL (70-99) Calcium Level 8.9 mg/dL (8.5-10.1) 8.1 mg/dL (8.5-10.1) Magnesium Level 2.2 mg/dL (1.8-2.4) Laboratory Tests Test 01/09/17 03:50 Sodium Level 142 mmol/L (136-145) Potassium Level 3.5 mmol/L (3.5-5.1) Chloride Level 104 mmol/L (98-107) Carbon Dioxide Level 29 mmol/L (21-32) Anion Gap 9 (6-14) Blood Urea Nitrogen 29 mg/dL (7-20) Creatinine 0.8 mg/dL (0.6-1.0) Estimated GFR (Cockcroft-Gault) 89.8 Glucose Level 93 mg/dL (70-99) Calcium Level 8.1 mg/dL (8.5-10.1) Medications Active Scripts Medications Dose Route/Sig Max Daily Dose Days Date Category Aspir 81 (Aspirin) 81 Mg Tablet.dr 1 Tab PO DAILY 01/07/17 Reported Atorvastatin Calcium 40 Mg Tablet 01/07/17 Reported Carvedilol 25 Mg Tablet 25 Mg PO DAILY 01/07/17 Reported Lisinopril 40 Mg Tablet 01/07/17 Reported Proair Hfa (Albuterol Sulfate) 8.5 Gm Hfa.aer.ad 01/07/17 Reported [Atrovent] 01/07/17 Reported Amlodipine Besylate 5 Mg Tablet 5 Mg PO DAILY 12/15/15 Reported Impression . IMPRESSION: 1. Acute respiratory failure secondary to suspect combination of pulmonary edema and chronic obstructive pulmonary disease exacerbation. 2. Acute exacerbation of chronic obstructive pulmonary disease. 3. Cardiomyopathy with previous left heart catheterization revealing mild blockages. 4. Tobacco use. 5. Alcoholism. 6. Hypertension. IMPRESSION: No acute finding seen in the chest. Trace amount of pericardial fluid. Small, 2 to 3 mm nodule left upper lobe. Follow-up imaging along the lines of the Fleischner criteria should be considered. Minute right renal calculus. 2 cm left renal mass probably reflecting a cyst. Nonemergent ultrasound suggested for additional evaluation and characterization Plan . PT FEELS BETTER AGREE WITH DR Spangler NEEDS TO QUIT ALCOHOL AND TOBACCO D/C IN AM FOLLOW UP WITH ME IN [address] CHEST 1. Recommend mild diuresis. 2. Continue nebulized treatment. 3. Prednisone. 4. CT chest, REPORT NOTED D/W WITH PATENTS FRANCES HILL MD Jan 09, 2017 09:09
[2017-01-09] MEDS ORDERED: FURO-68 PO (09:35)
[2017-01-09 10:55] VITALS: BP 127/69
--- NOTE | 2017-01-09 11:33 | PDOC3 ---
Discharge Summary Visit Information Date of Admission: Jan 07, 2017 Date of Discharge: Jan 09, 2017 Brief Hospital Course Allergies Allergies Coded Allergies Type Severity Reaction Last Updated Verified Penicillins Allergy Intermediate 12/16/15 No Vital Signs Vital Signs Date Time Temp Pulse Resp B/P (MAP) Pulse Ox O2 Delivery O2 Flow Rate FiO2 01/09/17 10:55 98.3 70 18 127/69 (88) 97 Room Air 98.3 Lab Results Laboratory Tests Test 01/08/17 04:40 01/09/17 03:50 White Blood Count 12.2 x10^3/uL (4.0-11.0) Red Blood Count 3.78 x10^6/uL (3.50-5.40) Hemoglobin 11.5 g/dL (12.0-15.5) Hematocrit 35.0 % (36.0-47.0) Mean Corpuscular Volume 93 fL (79-100) Mean Corpuscular Hemoglobin 30 pg (25-35) Mean Corpuscular Hemoglobin Concent 33 g/dL (31-37) Red Cell Distribution Width 13.6 % (11.5-14.5) Platelet Count 179 x10^3/uL (140-400) Neutrophils (%) (Auto) 84 % (31-73) Lymphocytes (%) (Auto) 10 % (24-48) Monocytes (%) (Auto) 6 % (0-9) Eosinophils (%) (Auto) 0 % (0-3) Basophils (%) (Auto) 0 % (0-3) Neutrophils # (Auto) 10.2 x10^3uL (1.8-7.7) Lymphocytes # (Auto) 1.2 x10^3/uL (1.0-4.8) Monocytes # (Auto) 0.8 x10^3/uL (0.0-1.1) Eosinophils # (Auto) 0.0 x10^3/uL (0.0-0.7) Basophils # (Auto) 0.0 x10^3/uL (0.0-0.2) Sodium Level 141 mmol/L (136-145) 142 mmol/L (136-145) Potassium Level 3.5 mmol/L (3.5-5.1) 3.5 mmol/L (3.5-5.1) Chloride Level 105 mmol/L (98-107) 104 mmol/L (98-107) Carbon Dioxide Level 29 mmol/L (21-32) 29 mmol/L (21-32) Anion Gap 7 (6-14) 9 (6-14) Blood Urea Nitrogen 32 mg/dL (7-20) 29 mg/dL (7-20) Creatinine 1.0 mg/dL (0.6-1.0) 0.8 mg/dL (0.6-1.0) Estimated GFR (Cockcroft-Gault) 69.4 89.8 Glucose Level 129 mg/dL (70-99) 93 mg/dL (70-99) Calcium Level 8.9 mg/dL (8.5-10.1) 8.1 mg/dL (8.5-10.1) Magnesium Level 2.2 mg/dL (1.8-2.4) Laboratory Tests Test 01/09/17 03:50 Sodium Level 142 mmol/L (136-145) Potassium Level 3.5 mmol/L (3.5-5.1) Chloride Level 104 mmol/L (98-107) Carbon Dioxide Level 29 mmol/L (21-32) Anion Gap 9 (6-14) Blood Urea Nitrogen 29 mg/dL (7-20) Creatinine 0.8 mg/dL (0.6-1.0) Estimated GFR (Cockcroft-Gault) 89.8 Glucose Level 93 mg/dL (70-99) Calcium Level 8.1 mg/dL (8.5-10.1) Brief Hospital Course Ms. 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 Antonio RN Cornelio Seen and examined Time 34 mins Discharge Information Condition at Discharge: Improved, Stable Follow Up: Weeks (cards or PCP) Disposition/Orders: D/C to Home Scheduled Amlodipine Besylate (Amlodipine Besylate), 5 MG PO DAILY, (Reported) Aspirin (Aspir 81), 1 TAB PO DAILY, (Reported) Carvedilol (Carvedilol), 25 MG PO DAILY, (Reported) Miscellaneous Medications Albuterol Sulfate (Proair Hfa), (Reported) Atorvastatin Calcium (Atorvastatin Calcium), (Reported) Lisinopril (Lisinopril), (Reported) [Atrovent], (Reported) ZHENG DEVLIN MD Jan 09, 2017 11:33
--- NOTE | 2017-01-09 11:50 | PDOC ---
CARDIO Progress Notes Date and Time Date of Service 01/09/17 Time of Evaluation 1015 Subjective Subjective: No Chest Pain, No shortness of breath, No Palpitations, Other ( wanting information on disability ) Vitals Vitals Vital Signs Date Time Temp Pulse Resp B/P (MAP) Pulse Ox O2 Delivery O2 Flow Rate FiO2 01/09/17 10:55 98.3 70 18 127/69 (88) 97 Room Air 98.3 Weight Weight [ ] Input and Output Intake and Output Intake and Output 01/10/17 07:00 Intake Total 180 ml Balance 180 ml Intake Oral 180 ml Laboratory Labs Laboratory Tests Test 01/09/17 03:50 Sodium Level 142 mmol/L (136-145) Potassium Level 3.5 mmol/L (3.5-5.1) Chloride Level 104 mmol/L (98-107) Carbon Dioxide Level 29 mmol/L (21-32) Anion Gap 9 (6-14) Blood Urea Nitrogen 29 mg/dL (7-20) Creatinine 0.8 mg/dL (0.6-1.0) Estimated GFR (Cockcroft-Gault) 89.8 Glucose Level 93 mg/dL (70-99) Calcium Level 8.1 mg/dL (8.5-10.1) Microbiology Micro Microbiology 01/07/17 Urine Culture - Preliminary, Resulted 01/07/17 Urine Culture Result 1 (ZEYAD) - Preliminary, Resulted Physical Exam HEENT: Neck Supple W Full Motion Chest: Symmetric LUNGS: Other (diminished bases) Heart: S1S2, RRR Abdomen: Soft N/T Extremities: No Edema Neurology: alert, oriented, follow commands Assessment Assessment 1. Acute on chronic systolic heart failure with NICM; LVEF 35-40%. better with diuresis. Now compensated. 2. Acute hypoxic respiratory failure with AE COPD; improved 3. Chronic alcoholism; reinforced importance of cessation. verbalized desired to quit Recommendations Continue HF optimization with ACEi, BB, and diuretic May discharge from a CV standpoint and followup in our office with Dr. Virk in 1 month as scheduled Consider outpatient MPI Will repeat echo in 3-4 months to assess need for AICD in primary prevention of SCD Records from reviewed: - Echo showed LVEF 50-55%. Small area of hypokinesis involving the distal inferior wall. The LA was mildly enlarged. - 01/18/16 Nuclear stress test; no evidence of ischemia - 02/27/16 LHC; Nonobstructive CAD with 20-30% lesion in the distal RCA. Normal LVEDP. Aggressive risk factor modification was recommended. JOEY MCMAHON APRN Jan 09, 2017 11:50
[2017-01-09] MEDS ORDERED: POTASSIUM CHLO10 MEQ PO (12:37)
== END 2017-01-09 13:10 | disposition home or self-care (01) | DRG 291 ==
LOC: ER 23:15 → 2 NORTH 01-07 00:15
PROVIDERS: ADMIT Internal Medicine; ATTEND Internal Medicine
PROC: 5A09357 Assistance with Respiratory Ventilation, Less than 24 Consecutive Hours, Continuous Positive Airway Pressure (ICD-10-PCS; principal; 2017-01-07)
DX: I11.0 Hypertensive heart disease with heart failure (principal); J96.01 Acute respiratory failure with hypoxia; J44.1 Chronic obstructive pulmonary disease with (acute) exacerbation; E83.42 Hypomagnesemia; I42.0 Dilated cardiomyopathy; I50.23 Acute on chronic systolic (congestive) heart failure; E78.5 Hyperlipidemia, unspecified; E87.6 Hypokalemia; F10.20 Alcohol dependence, uncomplicated; F12.90 Cannabis use, unspecified, uncomplicated; F17.210 Nicotine dependence, cigarettes, uncomplicated; I25.10 Atherosclerotic heart disease of native coronary artery without angina pectoris; N20.0 Calculus of kidney; Z82.49 Family history of ischemic heart disease and other diseases of the circulatory system; Z82.5 Family history of asthma and other chronic lower respiratory diseases; Z90.710 Acquired absence of both cervix and uterus; Z88.0 Allergy status to penicillin
CPT/HCPCS: 36415; 36600; 71010; 71020; 71250; 80048; 80061; 80076; 80307; 81001; 81025; 82553; 82805; 83605; 83690; 83735; 83880; 84443; 84484; 85025; 85610; 87086; 93005; 93306; 94250; 94640; 94660; 94760; 96374; 96375; J1940; J2930; J3490; J7060; J7512; J7620; 99291-25; G0479

== ENCOUNTER 2017-02-03 09:16 | Emergency (ER) | payer OTHER ==
[~2017-02-03] VITALS: Ht 162.6 cm; Wt 75.3 kg
[~2017-02-03 09:16] MED LIST changes: +ALBU8.5H8; +ASPI-482 PO; +ATOR40TA59; +ATROVENT; +CARV25TA2 PO; +FURO-68 PO; +LISI40TA; +POTASSIUM CHLO10 MEQ PO
[2017-02-03] MEDS ORDERED: IPRATRPIUM/ALBUTEROL 0.5/2.5MG 3 ML NEBU. NEB ONE (09:45)
[2017-02-03] MEDS ORDERED: methylPREDNISolone SOD SUCC PF 125 MG/2 ML VIAL. IV ONE (09:45)
--- NOTE | 2017-02-03 09:55 | RAD ---
Exam performed: One view chest. History: Shortness of breath for 3 weeks, worse in the last week history of smoking. Date of service: 02/03/17. Comparison: 01/07/17. Single AP upright portable view chest findings: Stable moderate cardiomegaly. Mild central vascular congestion is noted. Prominent interstitial markings seen in both lungs, some of which may be chronic. Development of haziness in the left lung base. Impression: Stable moderate cardiomegaly with mild central vascular congestion. Development of haziness in the left lung base, early infiltrates not excluded. Evaluation with 2 views of the chest may obtained for further evaluation
[2017-02-03] MEDS: NITROGLYCERIN SUBLINGUAL 0.4 MG BOTTLE OF 25. SL PRN ×2 (10:01→10:39)
[2017-02-03 10:10] LABS: BASO # 0.1 x10^3/uL (0.0-0.2); BASO % 1 % (0-3); CALCIUM 9.3 mg/dL (8.5-10.1); CREATININE 0.6 mg/dL (0.6-1.0); EOS % 3 % (0-3); GFR 125.1; HEMATOCRIT 39.7 % (36.0-47.0); HEMOGLOBIN 12.9 g/dL (12.0-15.5); LYMPH # 1.8 x10^3/uL (1.0-4.8); LYMPH % 36 % (24-48); MEAN CORPUSCULAR HEMOGLOBIN 30 pg (25-35); MEAN CORPUSCULAR HGB CONC 33 g/dL (31-37); MEAN CORPUSCULAR VOLUME 92 fL (79-100); MONO % 11 % (0-9); NEUT % 49 % (31-73); PLATELET COUNT 149 x10^3/uL (140-400); POTASSIUM 3.6 mmol/L (3.5-5.1); RED BLOOD COUNT 4.33 x10^6/uL (3.50-5.40); RED CELL DISTRIBUTION WIDTH 13.5 % (11.5-14.5); WHITE BLOOD COUNT 4.9 x10^3/uL (4.0-11.0)
--- NOTE | 2017-02-03 10:11 | PHYS DOC ---
Past Medical History Past Medical History: High Cholesterol, Hypertension Past Surgical History: Hysterectomy Alcohol Use: Sober Drug Use: Marijuana Adult General Chief Complaint Chief Complaint: SHORTNESS OF BREATH HPI HPI Patient is a 56 year old female presenting to the emergency department for evaluation of worsening shortness of breath over the past week. She said that it started suddenly one week ago. She says that she feels short of breath at rest and exertion but she denies any cough fevers chills nausea vomiting or any pain including chest pain. She was admitted to the hospital in December and was diagnosed with possible CHF and has follow-up with cardiology in 10 days. She reports her lung function tests were normal although I haven't verify this in the records it. Patient says that she was discharged on Lasix and steroids and she finished her course of steroids. She started smoking again approximately one week ago when she started becoming short of breath but she says that she threw away her cigarettes yesterday. She appears mildly short of breath but she is nontoxic appearing with normal vital signs including oxygen saturation of 98% but slightly hypertensive. Review of Systems Review of Systems Constitutional: Denies fever or chills [] Eyes: Denies change in visual acuity, redness, or eye pain [] HENT: Denies nasal congestion or sore throat [] Respiratory: Denies cough. + shortness of breath [] Cardiovascular: No additional information not addressed in HPI [] GI: Denies abdominal pain, nausea, vomiting, bloody stools or diarrhea [] : Denies dysuria or hematuria [] Musculoskeletal: Denies back pain or joint pain [] Integument: Denies rash or skin lesions [] Neurologic: Denies headache, focal weakness or sensory changes [] Current Medications Current Medications Current Medications Medications (Trade) Dose Ordered Sig/Rhys Start Time Stop Time Status Last Admin Dose Admin Albuterol/ Ipratropium (Duoneb) 3 ml 1X ONCE 02/03/17 09:45 02/03/17 09:46 DC 02/03/17 09:46 3 ML Amlodipine Besylate (Norvasc) 5 mg 1X ONCE 02/03/17 10:45 02/03/17 10:46 DC 02/03/17 10:48 5 MG Carvedilol (Coreg) 25 mg 1X STAT 02/03/17 10:37 02/03/17 10:38 DC 02/03/17 10:49 25 MG Furosemide (Lasix) 40 mg 1X ONCE 02/03/17 10:30 02/03/17 10:31 DC 02/03/17 10:39 40 MG Iohexol (Omnipaque 300 Mg/ml) 75 ml 1X ONCE 02/03/17 11:15 02/03/17 11:16 DC 02/03/17 11:31 75 ML Lisinopril (Prinivil) 40 mg 1X ONCE 02/03/17 10:45 02/03/17 10:46 DC 02/03/17 10:49 40 MG Methylprednisolone Sodium Succinate (SOLU-Medrol 125MG VIAL) 125 mg 1X ONCE 02/03/17 09:45 02/03/17 09:46 DC 02/03/17 09:58 125 MG Nitroglycerin (Nitrostat) 0.4 mg PRN Q5MIN PRN 02/03/17 09:45 02/03/17 10:39 0.4 MG Allergies Allergies Allergies Coded Allergies Type Severity Reaction Last Updated Verified Penicillins Allergy Intermediate 12/16/15 No Physical Exam Physical Exam Constitutional: Well developed, well nourished, no acute distress, non-toxic appearance. [] HENT: Normocephalic, atraumatic, bilateral external ears normal, oropharynx moist, no oral exudates, nose normal. [] Eyes: PERRLA, EOMI, conjunctiva normal, no discharge. [] Neck: Normal range of motion, no tenderness, supple, no stridor. [] Cardiovascular:Heart rate regular rhythm, no murmur [] Lungs & Thorax: Bilateral breath sounds diminished bilaterally with crackles at the bases Abdomen: Bowel sounds normal, soft, no tenderness, no masses, no pulsatile masses. [] Skin: Warm, dry, no erythema, no rash. [] Back: No tenderness, no CVA tenderness. [] Extremities: No tenderness, no cyanosis, no clubbing, ROM intact, no edema. [] Neurologic: Alert and oriented X 3, normal motor function, normal sensory function, no focal deficits noted. [] Current Patient Data Vital Signs Vital Signs Date Time Temp Pulse Resp B/P (MAP) Pulse Ox O2 Delivery O2 Flow Rate FiO2 02/03/17 10:49 80 157/97 02/03/17 10:41 25 95 Room Air 02/03/17 09:21 98.2 98.2 Lab Values Laboratory Tests Test 02/03/17 09:42 02/03/17 09:47 02/03/17 11:05 Troponin I Quantitative 0.023 ng/mL (0.000-0.055) White Blood Count 4.9 x10^3/uL (4.0-11.0) Red Blood Count 4.33 x10^6/uL (3.50-5.40) Hemoglobin 12.9 g/dL (12.0-15.5) Hematocrit 39.7 % (36.0-47.0) Mean Corpuscular Volume 92 fL (79-100) Mean Corpuscular Hemoglobin 30 pg (25-35) Mean Corpuscular Hemoglobin Concent 33 g/dL (31-37) Red Cell Distribution Width 13.5 % (11.5-14.5) Platelet Count 149 x10^3/uL (140-400) Neutrophils (%) (Auto) 49 % (31-73) Lymphocytes (%) (Auto) 36 % (24-48) Monocytes (%) (Auto) 11 % (0-9) H Eosinophils (%) (Auto) 3 % (0-3) Basophils (%) (Auto) 1 % (0-3) Neutrophils # (Auto) 2.4 x10^3uL (1.8-7.7) Lymphocytes # (Auto) 1.8 x10^3/uL (1.0-4.8) Monocytes # (Auto) 0.5 x10^3/uL (0.0-1.1) Eosinophils # (Auto) 0.1 x10^3/uL (0.0-0.7) Basophils # (Auto) 0.1 x10^3/uL (0.0-0.2) Prothrombin Time 13.4 SEC (11.7-14.0) Prothrombin Time INR 1.1 (0.8-1.1) PTT 29 SEC (24-38) D-Dimer (Bridgette) 2.13 ug/mlFEU (0.00-0.50) H Sodium Level 144 mmol/L (136-145) Potassium Level 3.6 mmol/L (3.5-5.1) Chloride Level 107 mmol/L (98-107) Carbon Dioxide Level 26 mmol/L (21-32) Anion Gap 11 (6-14) Blood Urea Nitrogen 21 mg/dL (7-20) H Creatinine 0.6 mg/dL (0.6-1.0) Estimated GFR (Cockcroft-Gault) 125.1 BUN/Creatinine Ratio 35 (6-20) H Glucose Level 95 mg/dL (70-99) Calcium Level 9.3 mg/dL (8.5-10.1) Magnesium Level 1.8 mg/dL (1.8-2.4) Total Bilirubin 0.6 mg/dL (0.2-1.0) Aspartate Amino Transferase (AST) 36 U/L (15-37) Alanine Aminotransferase (ALT) 48 U/L (14-59) Alkaline Phosphatase 84 U/L (46-116) Creatine Kinase 51 U/L (26-192) MG-Biu-T-Type Natriuretic Peptide 8716 pg/mL (0-124) H Total Protein 6.6 g/dL (6.4-8.2) Albumin 3.1 g/dL (3.4-5.0) L Albumin/Globulin Ratio 0.9 (1.0-1.7) L Lipase 187 U/L (73-393) Ethyl Alcohol Level < 10 mg/dL (0-10) Urine Collection Type Unknown Urine Color Yellow Urine Clarity Clear Urine pH 6.5 Urine Specific [place] 1.010 Urine Protein Negative mg/dL (NEG-TRACE) Urine Glucose (UA) Negative mg/dL (NEG) Urine Ketones (Stick) Trace mg/dL (NEG) Urine Blood Moderate (NEG) Urine Nitrite Negative (NEG) Urine Bilirubin Negative (NEG) Urine Urobilinogen Dipstick 0.2 mg/dL (0.2 mg/dL) Urine Leukocyte Esterase Negative (NEG) Urine RBC 0 /HPF (0-2) Urine WBC 0 /HPF (0-4) Urine Squamous Epithelial Cells Occ /LPF Urine Amorphous Sediment Present /HPF Urine Bacteria Few /HPF (0-FEW) Urine Mucus Marked /LPF Urine Opiates Screen Neg (NEG) Urine Methadone Screen Neg (NEG) Urine Barbiturates Neg (NEG) Urine Phencyclidine Screen Neg (NEG) Urine Amphetamine/Methamphetamine Neg (NEG) Urine Benzodiazepines Screen Neg (NEG) Urine Cocaine Screen Neg (NEG) Urine Cannabinoids Screen Neg (NEG) Urine Ethyl Alcohol Neg (NEG) Laboratory Tests 02/03/17 09:47 Laboratory Tests 02/03/17 09:47 EKG EKG Sinus rhythm at 84 bpm with normal axis no obvious ST elevation or depression with inverted T-wave in lead V4 and PVC every 4 beats. On monitor PVCs are quite infrequent. Radiology/Procedures Radiology/Procedures Exam performed: One view chest. History: Shortness of breath for 3 weeks, worse in the last week history of smoking. Date of service: 02/03/17. Comparison: 01/07/17. Single AP upright portable view chest findings: Stable moderate cardiomegaly. Mild central vascular congestion is noted. Prominent interstitial markings seen in both lungs, some of which may be chronic. Development of haziness in the left lung base. Impression: Stable moderate cardiomegaly with mild central vascular congestion. Development of haziness in the left lung base, early infiltrates not excluded. Evaluation with 2 views of the chest may obtained for further evaluation DICTATED and SIGNED BY: JERMAINE RUVALCABA MD DATE: 02/03/17950 Course & Med Decision Making Course & Med Decision Making I reviewed her records it does not appear that she has been evaluated for pulmonary embolism although less likely. More likely she has some fluid build- up on her lungs given x-ray findings. We'll treat with sublingual nitroglycerin to get her blood pressure down in addition to breathing treatment steroid and a dose of IV Lasix. Patient's shortness of breath is improved and her blood pressure is back to normal after taking her home medication doses. I do not see any reason for admission as her vital signs are normal and her workup is improved. Spoke to the marble chip terrazzo worker personal care aid Dr. Gaspar and also the PROFESSOR OF SURGERY, Sigifredo and plan will be to send her home with increased dose of Norvasc and have her appointment moved up to later this week and have her return with any worsening pain shortness of breath or other general concerns. He shouldn't aware and agreeable with plan for discharge and verbalized understanding of the need for short-term follow-up and strict ED return precautions discussed as above. Dragon Disclaimer Dragon Disclaimer This electronic medical record was generated, in whole or in part, using a voice recognition dictation system. Departure Departure Impression: Primary Impression: Shortness of breath Additional Impressions: Pulmonary edema CHF (congestive heart failure) Hypertension Disposition: HOME, SELF-CARE Condition: STABLE Referrals: UNKNOWN PCP NAME (PCP) ALEXX MYERS MD Patient Instructions: Pulmonary Edema Scripts Prednisone (PREDNISONE) 50 Mg Tablet 1 TAB PO DAILY, #4 TAB Prov: DENISE MOYA DO 02/03/17 Amlodipine Besylate (NORVASC) 10 Mg Tablet 10 MG PO DAILY, #30 TAB Prov: DENISE MOYA DO 02/03/17 Problem Qualifiers DENISE MOYA DO Feb 03, 2017 10:11
[2017-02-03 10:16] LABS: ALBUMIN 3.1 g/dL (3.4-5.0); ALBUMIN/GLOBULIN RATIO 0.9 (1.0-1.7); MAGNESIUM 1.8 mg/dL (1.8-2.4); TOTAL BILIRUBIN 0.6 mg/dL (0.2-1.0); TOTAL PROTEIN 6.6 g/dL (6.4-8.2)
[2017-02-03 10:19] LABS: INR 1.1 (0.8-1.1); PROTHROMBIN TIME PATIENT 13.4 SEC (11.7-14.0)
[2017-02-03] MEDS ORDERED: FUROSEMIDE 40 MG/4 ML VIAL. IVP ONE (10:30)
--- NOTE | 2017-02-03 10:36 | EKG ---
[facility] [address] [place] [address] Test Date: 2017-02-03 Test Time: 09:28:11 Pat Name: FOSTER SOLOMON Department: Room: Gender: F Tester Regulator: : [id number] Requested By: DENISE MOYA Order Number: [id number] Reading MD: Archana Riggs Measurements Intervals [place]anco Rate: 84 P: 45 RI: 150 QRS: 16 QRSD: 92 T: 126 QT: 422 QTc: 502 Interpretive Statements SINUS RHYTHM VENTRICULAR PREMATURE COMPLEX(ES) LEFT ATRIAL ABNORMALITY QRS(T) CONTOUR ABNORMALITY CONSIDER ANTEROSEPTAL MYOCARDIAL DAMAGE ABNORMAL ECG Electronically Signed On 02-03-2017 19:01:22 CDT by Archana Riggs
[2017-02-03] MEDS ORDERED: CARVEDILOL 12.5 MG TABLET. PO STA (10:37)
[2017-02-03] MEDS ORDERED: LISINOPRIL 10 MG TABLET PO ONE (10:45)
[2017-02-03] MEDS ORDERED: amLODIPine BESYLATE 5 MG TABLET PO ONE (10:45)
[2017-02-03] MEDS ORDERED: IOHEXOL 300 MG/ML 75 ML VIAL IV ONE (11:15)
[2017-02-03 11:32] LABS: BARBITURATES NEG (NEG); BENZODIAZEPINES NEG (NEG); CANNABINOIDS NEG (NEG); COCAINE NEG (NEG); METHADONE NEG (NEG); OPIATES NEG (NEG); PHENCYCLIDINE NEG (NEG)
[2017-02-03 11:34] LABS: BILIRUBIN,URINE NEGATIVE (NEG); GLUCOSE,URINE NEGATIVE (NEG); NITRITE,URINE NEGATIVE (NEG); PH,URINE 6.5; PROTEIN,URINE NEGATIVE (NEG-TRACE); UROBILINOGEN,URINE 0.2 mg/dL (0.2 mg/dL)
--- NOTE | 2017-02-03 11:54 | RAD ---
Indication shortness of air. Contrast imaging through the chest was performed. Examination was tailored for the detection of pulmonary embolus. MIP images were generated and reviewed. Approximately 75 cc of Omnipaque 300 was administered intravenously. Note is made of a previous noncontrast examination 01/07/2017. There is a very small pericardial effusion similar to the previous exam. No significant pleural fluid is seen in either lung. The study is negative for pulmonary embolus. A small nodule is seen in the left upper lobe similar to the previous exam. An acute parenchymal infiltrate is not seen. There is a nodule in the right lung, image 76 measuring approximately 7 mm more conspicuous than on the previous study. No discrete nodule was seen in this area previously. This is along the fissure and is probably benign. Again follow-up imaging along the lines of the Fleischner criteria should be considered. Acute parenchymal infiltrate is not seen. Acute finding in the upper abdomen is not seen. Right renal calculus is noted. Probable cyst associated with the left kidney is also noted. There is no significant hilar or mediastinal adenopathy. IMPRESSION: Negative study for pulmonary embolus. No acute finding seen in the chest. Unchanged small nodule in the left upper lobe. Possible new nodule in the right lung. Follow-up imaging along the lines of the Fleischner criteria advised. Nodules detected incidentally at non-screening CT Nodule size (mm) less than or equal to 4 Low Risk patients- no follow-up needed High Risk patients- follow-up at 12 months and if no change, no further imaging needed. Nodule size > 4-6 mm Low risk patients- follow- up at 12 months and if no change, no further imaging needed High risk patients- initial follow-up CT at 6-12 months and then at 18-24 months if no change. Nodule Size > 6-8 mm Low risk patients- initial follow-up CT at 6-12 months and then at 18-24 months if no change. High risk patients- initial follow- up CT at 3-6 months and then at 9-12 months if no change, Nodule Size >8 mm Either low or high risk patients: Follow-up CT at around 3, 9 and 24 [address], PET, and/or biopsy Note: newly detected indeterminate nodule in person 35 years of age or older. Low risk patients- minimal or absent history of smoking and/or other known risk factors. High risk patients- history of smoking or of other known risk factors. PQRS Compliance Statement: One or more of the following individualized dose reduction techniques were utilized for this examination: 1. Automated exposure control 2. Adjustment of the mA and/or kV according to patient size 3. Use of iterative reconstruction technique
[2017-02-03 12:00] LABS: BACTERIA,URINE FEW /HPF (0-FEW); RBC,URINE 0 /HPF (0-2); SQUAMOUS EPITHELIAL CELL,UR OCC /LPF; WBC,URINE 0 /HPF (0-4)
[2017-02-03 13:33] VITALS: BP 143/80
[2017-02-03] MEDS ORDERED: AMLO10TA4 PO (13:40)
[2017-02-03] MEDS ORDERED: PRED50TA PO (13:40)
== END 2017-02-03 13:55 | disposition home or self-care (01) ==
LOC: ER 09:16
DX: I11.0 Hypertensive heart disease with heart failure (principal); I50.9 Heart failure, unspecified; J81.1 Chronic pulmonary edema; R06.02 Shortness of breath; E78.00 Pure hypercholesterolemia, unspecified; Z88.0 Allergy status to penicillin
CPT/HCPCS: 36415; 71010; 71275; 80053; 80307; 81001; 82550; 83690; 83735; 83880; 84484; 85025; 85379; 85610; 85730; 93005; 94640; 96374; 96375; 99285; G0480; J1940; J2930; J7620; Q9967; G0479

== ENCOUNTER → 2017-10-28 | Outpatient (CLI) | payer OTHER | END | disposition home or self-care (01) | LOC: ECHO 09:39 | DX: I42.9 Cardiomyopathy, unspecified (principal); I11.0 Hypertensive heart disease with heart failure; I50.9 Heart failure, unspecified; E78.5 Hyperlipidemia, unspecified; E87.6 Hypokalemia; E83.42 Hypomagnesemia | CPT/HCPCS: 93306 ==

== ENCOUNTER → 2018-01-09 | Outpatient (CLI) | payer OTHER ==
[~2018-01-09] MED LIST changes: +AMLO10TA4 PO; -AMLO5TAB2 PO; +AMLO5TAB7 PO; +LISI-130; -LISI40TA; +POTA10TA12 PO; -POTASSIUM CHLO10 MEQ PO; +PRED50TA PO
--- NOTE | 2018-01-09 14:16 | RAD ---
CT CHEST WO CONTRAST Indication: LUNG NODULE F/U
PRIOR SENT Exposure: One or more of the following individualized dose reduction techniques were utilized for this examination: 1. Automated exposure control 2. Adjustment of the mA and/or kV according to patient size 3. Use of iterative reconstruction technique. Comparison: CT chest 01/07/2017 Contrast: None FINDINGS: Vascular structures: Limited exam without contrast. No evidence of thoracic aortic aneurysm. Lymph nodes: Mild hilar lymph node enlargement is suggested but difficult to be certain due to the lack of intravenous contrast. However, the appearance is similar as the prior study. Thyroid gland: Partially included, appear symmetric. Heart: Small pericardial effusion stable in size. Esophagus: Unremarkable Pleural spaces: No significant effusion Lungs: Tiny left upper lobe pulmonary nodule, series 2, image 16 is unchanged. Trachea and central airways: Patent Spine: Degenerative spondylosis. Bones: No destructive process Upper abdomen: Slices obtained through the upper most abdomen are limited by the noncontrast technique. No obvious acute findings. Impression: 1. Small left upper lobe pulmonary nodule is stable. 2. Small pericardial effusion is stable. Electronically signed by: Eros Sierra MD (01/09/2018 2:14 PM) [id number]
== END | disposition home or self-care (01) ==
LOC: CT 08:57
PROVIDERS: ATTEND Internal Medicine Pulmonary Disease
DX: I31.3 Pericardial effusion (noninflammatory) (principal); M47.894 Other spondylosis, thoracic region; I11.0 Hypertensive heart disease with heart failure; I50.23 Acute on chronic systolic (congestive) heart failure; E78.00 Pure hypercholesterolemia, unspecified; I25.10 Atherosclerotic heart disease of native coronary artery without angina pectoris; R91.1 Solitary pulmonary nodule; R59.0 Localized enlarged lymph nodes; Z90.710 Acquired absence of both cervix and uterus; Z82.49 Family history of ischemic heart disease and other diseases of the circulatory system; Z83.3 Family history of diabetes mellitus; Z82.5 Family history of asthma and other chronic lower respiratory diseases
CPT/HCPCS: 71250

== ENCOUNTER → 2019-01-12 | Outpatient (CLI) | payer OTHER ==
[2018-05-28 15:03] VITALS: BP 117/74
[~2019-01-12] MED LIST changes: +ALBU2.5V8 INH; -ALBU8.5H8; +ALBUTEROL SULFATE 2.5 MG/3 ML NEBU. NEB ONE; +AMLO5TAB10 PO; -AMLO5TAB7 PO; -ATOR40TA59; +ATOR40TA59 PO; +FOLI1TAB16 PO; -LISI-130; +LISI-130 PO; +PRED-220 PO; +THIA100T22 PO
== END | disposition home or self-care (01) ==
LOC: PF 08:13
PROVIDERS: ATTEND Emergency Medicine
DX: I11.0 Hypertensive heart disease with heart failure (principal); I50.9 Heart failure, unspecified
CPT/HCPCS: 94060; 94640; J7613

== ENCOUNTER → 2019-06-04 | Day surgery (SDC) | payer OTHER ==
[~2019-06-04] MED LIST changes: -ALBUTEROL SULFATE 2.5 MG/3 ML NEBU. NEB ONE; +FURO40TA4 PO; +HYDROmorphone 2 MG/ML VIAL IV PRN; +IV RINGERS,LACTATED 1000ML 1,000 ML IV ONE; +IV RINGERS,LACTATED 1000ML 1,000 ML IV SCH; +LEVO500T59 PO; +LIDOCAINE 2% PF 5 ML VIAL. ONE; +MAGN400T5 PO; +MORPHINE SULFATE 2 MG/ML VIAL. IV PRN; +POTA10TA6 PO; +PROCHLORPERAZINE 10 MG/2 ML VIAL. IV PRN; +PROPOFOL 40 ML IV ONE; +SACU1TAB4 PO; +SPIR25TA5 PO; +fentaNYL PF VIAL 100 MCG/2 ML VIAL IV PRN
[2019-06-04 11:00] VITALS: BP 105/62
== END | disposition home or self-care (01) ==
LOC: ENDOS 09:05
PROVIDERS: ATTEND Internal Medicine Gastroenterology
DX: K57.30 Diverticulosis of large intestine without perforation or abscess without bleeding (principal); K57.32 Diverticulitis of large intestine without perforation or abscess without bleeding; K64.0 First degree hemorrhoids; J43.9 Emphysema, unspecified; I10 Essential (primary) hypertension; F17.210 Nicotine dependence, cigarettes, uncomplicated; Z88.0 Allergy status to penicillin; Z86.73 Personal history of transient ischemic attack (TIA), and cerebral infarction without residual deficits; Z90.710 Acquired absence of both cervix and uterus
CPT/HCPCS: 45330; J2001; J2704

== ENCOUNTER → 2019-06-17 | Outpatient (CLI) | payer OTHER ==
[2019-06-04 11:00] VITALS: BP 105/62
[~2019-06-17] MED LIST changes: +GADOTERATE 7.5 MMOL/15ML VIAL. IVP ONE; -HYDROmorphone 2 MG/ML VIAL IV PRN; -IV RINGERS,LACTATED 1000ML 1,000 ML IV ONE; -IV RINGERS,LACTATED 1000ML 1,000 ML IV SCH; -LIDOCAINE 2% PF 5 ML VIAL. ONE; -MORPHINE SULFATE 2 MG/ML VIAL. IV PRN; -PROCHLORPERAZINE 10 MG/2 ML VIAL. IV PRN; -PROPOFOL 40 ML IV ONE; -fentaNYL PF VIAL 100 MCG/2 ML VIAL IV PRN
--- NOTE | 2019-06-18 09:29 | RAD ---
Examination: PELVIS WO/W CONTRAST History: Left lower quadrant pain, colovaginal fistula, diverticulosis Comparison/Correlation: 06/13/2018 CT abdomen and pelvis with contrast Findings: Multiplanar, multisequence images of pelvis were obtained without contrast. Hematopoietic marrow is evident. Sacroiliac and hip joints are unremarkable. Diverticulosis is present. Circumferential wall thickening of the mid to distal sigmoid colon is present with enhancement. Enhancement posterior to the mid to distal sigmoid colon also seen presumably representing underlying inflammation. There is no loculated collection identified. No fistulous communication identified. The urinary bladder is mostly decompressed . Degenerative changes of the symphysis pubis are present. No enlarged pelvic lymph nodes. There uterus is atrophic or absent. Impression: Circumferential wall thickening and enhancement of the mid to distal sigmoid colon which may relate to related to diverticulosis. Follow up to resolution to exclude underlying mass is recommended. No fistulous communication identified. No suspicious enhancing collections identified. Consider further evaluation with water-soluble enema exam for further evaluation if fistula is a persistent concern. Electronically signed by: Darrel Louis MD (06/18/2019 9:26 AM) [facility]
== END | disposition home or self-care (01) ==
LOC: MRI 10:11
PROVIDERS: ATTEND Internal Medicine Gastroenterology
DX: K57.30 Diverticulosis of large intestine without perforation or abscess without bleeding (principal); L98.8 Other specified disorders of the skin and subcutaneous tissue
CPT/HCPCS: 72197; A9575

== ENCOUNTER → 2020-01-11 | Outpatient (CLI) | payer OTHER ==
[2019-06-04 11:00] VITALS: BP 105/62
[~2020-01-11] MED LIST changes: -GADOTERATE 7.5 MMOL/15ML VIAL. IVP ONE
--- NOTE | 2020-01-11 09:22 | RAD ---
EXAMINATION: CT CHEST WO CONTRAST CLINICAL HISTORY: Follow-up pulmonary nodule Technique: Spiral CT acquisition of the chest from the thoracic inlet to the upper abdomen without contrast. CT Dose Reduction Employed: One or more of the following individualized dose reduction techniques were utilized for this examination: 1. Automated exposure control 2. Adjustment of the mA and/or kV according to patient size 3. Use of iterative reconstruction technique. Comparison: CT chest 01/09/2018 FINDINGS: Limitations: None. Lines, tubes, and devices: None. Lung parenchyma and pleura: No suspicious pulmonary nodule visualized. Several tiny micronodules bilaterally, some of which are calcified and may be related to old granulomatous disease. Focal soft tissue thickening along the anterior minor fissure, similar to prior study. Mild emphysematous changes in the bilateral upper lobes. Scattered areas of mild subsegmental atelectasis and/or scarring bilaterally. No focal airspace consolidation. No pleural effusion. Central airways are patent. Thoracic inlet, heart, and mediastinum: No lymphadenopathy in the axillary, mediastinal, or hilar regions. The thoracic aorta and main pulmonary artery are normal in caliber with mild aortic atherosclerotic calcification. The cardiac chambers are normal in size. Mild coronary artery and mitral valve calcification. Small pericardial effusion, similar to prior study. Bones and soft tissues: Multilevel thoracolumbar degenerative disc disease. Upper abdomen: Nonobstructive right renal calculus and partially visualized probable right renal cyst. IMPRESSION: No suspicious pulmonary nodule visualized. No evidence of acute cardiopulmonary abnormality or significant interval change. Chronic findings as described. Electronically signed by: Moreno Miles DO (01/11/2020 9:19 AM) [id number]
== END | disposition home or self-care (01) ==
LOC: CT 08:29
PROVIDERS: ATTEND Internal Medicine Pulmonary Disease
DX: J43.9 Emphysema, unspecified (principal); I25.10 Atherosclerotic heart disease of native coronary artery without angina pectoris; I34.0 Nonrheumatic mitral (valve) insufficiency; I31.3 Pericardial effusion (noninflammatory); N20.0 Calculus of kidney
CPT/HCPCS: 71250

== ENCOUNTER → 2020-12-15 | Outpatient (CLI) | payer MEDICARE, OTHER ==
[2019-06-04 11:00] VITALS: BP 105/62
[~2020-12-15] MED LIST changes: +AMLO-186 PO; -AMLO5TAB10 PO
--- NOTE | 2020-12-15 20:09 | RAD ---
CT chest without contrast: Reason for examination: Lung nodule. Follow-up exam. Comparison is made to previous studies dated 01/11/2020 and 01/09/2018. Helical images were obtained through the chest with no intravenous contrast administered. Reconstruct ion was performed in sagittal and coronal planes. Exposure: One or more of the following individualized dose reduction techniques were utilized for thi s examination: 1. Automated exposure control 2. Adjustment of the mA and/or kV according to patient size 3. Use of iterative reconstruction technique. No abnormality seen at the thyroid gland. The trachea and mainstem bronchi show no intraluminal lesio ns. No abnormality seen at the esophagus. The thoracic aorta appears to be normal in course and calib er. The heart size is normal with no pericardial effusion. Lung yancey continue to show a small 8 mm nodule adjacent to the right minor fissure which is stable. There also continues be a small nodule pe ripherally in the left upper lobe measuring approximately 4 mm in size which has not changed. No new infiltrates, nodules or pleural effusions are seen. There are some hypertrophic changes in the thorac ic spine but no acute bony abnormalities evident. No abnormality seen at the liver, spleen, visualized pancreas, adrenal glands or visualized portions of the kidneys. IMPRESSION: Continued presence of a small 4 mm nodule in the left upper lobe which is unchanged. Continued presence of a small 8 mm nodule adjacent to the minor fissure which is unchanged. Electronically signed by: Karime Orozco MD (12/15/2020 8:07 PM) [facility]
== END ==
LOC: CT 09:37
PROVIDERS: ATTEND Internal Medicine Pulmonary Disease
DX: R91.8 Other nonspecific abnormal finding of lung field (principal)
CPT/HCPCS: 71250

== ENCOUNTER 2021-07-20 12:36 | Emergency (ER) | payer MEDICARE, OTHER ==
[~2021-07-20] VITALS: Ht 162.6 cm; Wt 82.6 kg
[~2021-07-20 12:36] MED LIST changes: +MAGN400T48 PO; -MAGN400T5 PO; +POTA-112 PO; -POTA10TA6 PO
[2021-07-20 13:34] VITALS: BP 131/74
[2021-07-20] MEDS ORDERED: CLIN150C16 PO (13:59)
--- NOTE | 2021-07-20 13:59 | PHYS DOC ---
Past Medical History Past Medical History: CHF, COPD, High Cholesterol, Hypertension Past Surgical History: Hysterectomy, Other Additional Past Surgical Histo: AICD,ABD SURG Smoking Status: Current Every Day Smoker Additional Information: 1 CIGARETTE A DAY Alcohol Use: None Drug Use: Marijuana General Adult EDM: Chief Complaint: ABSCESS HPI: HPI: Patient is a 61-year-old female who presents to the emergency department today for an abscess to her left axilla that started 3 days ago. Patient reports that she had a small abscess several months ago to this area that she popped and resolved on its own. She denies any fevers, nausea, vomiting. She is unsure of her last tetanus shot believes it was greater than 5 years ago. Review of Systems: Review of Systems: Constitutional: See HPI GI: See HPI Musculoskeletal: Reports pain to the right axilla Integument: See HPI Heart Score: C/O Chest Pain: N/A Risk Factors: Risk Factors: DM, Current or recent (<one month) smoker, HTN, HLP, family history of CAD, obesity. Risk Scores: Score 0 - 3: 2.5% MACE over next 6 weeks - Discharge Home Score 4 - 6: 20.3% MACE over next 6 weeks - Admit for Clinical Observation Score 7 - 10: 72.7% MACE over next 6 weeks - Early Invasive Strategies Current Medications: Current Medications Medications (Trade) Dose Ordered Sig/Rhys Start Time Stop Time Status Last Admin Dose Admin Lidocaine HCl (Lidocaine 1% 20ml Vial) 20 ml 1X ONCE 07/20/21 14:00 07/20/21 14:01 UNV Allergies: Allergies: Allergies Coded Allergies Type Severity Reaction Last Updated Verified Latex, Natural Rubber Allergy Intermediate Itching 06/04/19 Yes Penicillins Allergy Intermediate Rash 06/04/19 Yes Physical Exam: PE: Constitutional: Well developed, well nourished, no acute distress, non-toxic appearance. [] HENT: Normocephalic, atraumatic, bilateral external ears normal, oropharynx moist, no oral exudates, nose normal. [] Eyes: PERRL, EOMI, conjunctiva normal, no discharge. [] Neck: Normal range of motion, no stridor Cardiovascular: Normal peripheral perfusion Lungs & Thorax: Normal work of breathing, no tachypnea Abdomen: Soft and flat Skin: Warm, dry, no erythema, no rash. 5 cm abscess noted to left axilla no surrounding redness, warmth, swelling or drainage. There is pinpoint region that is currently draining purulent fluid. Back: Normal range of motion Extremities: No tenderness, no cyanosis, no clubbing, ROM intact, no edema. [] Neurologic: Alert and oriented X 3, normal motor function, normal sensory function, no focal deficits noted. [] Psychologic: Affect normal, judgement normal, mood normal. [] Current Patient Data: Vital Signs: Vital Signs Date Time Temp Pulse Resp B/P (MAP) Pulse Ox O2 Delivery O2 Flow Rate FiO2 07/20/21 13:34 99.3 95 19 131/74 (93) 96 Room Air 99.3 EKG: EKG: [] Radiology/Procedures: Radiology/Procedures: [] Course & Med Decision Making: Course & Med Decision Making Pertinent Labs and Imaging studies reviewed. (See chart for details) Patient was seen in the emergency department today for an abscess to her left axilla. This was cleansed in the emergency department, lidocaine was used and incision and drainage was performed. Patient tolerated procedure. Tetanus was updated in the emergency department today. A dressing was placed. Patient will be discharged home with an antibiotic. I discussed with patient all findings and diagnostic testing as well as the need to follow-up with PCP for further evaluation and treatment or return to the ER if any new or worsening symptoms. Strict return precautions were also discussed at length. Patient voiced underst anding and agreement with the plan. Patient is hemodynamically stable at the time of disposition. Dragon Disclaimer: Dragkal Disclaimer: This electronic medical record was generated, in whole or in part, using a voice recognition dictation system. Incision and Drainage Indication: abscess Procedure: The patient was positioned appropriately. Local anesthesia was 1% lidocaine an incision was then made over the apex of the lesion and large amount of purulent material was expressed. The drainage cavity was irrigated and packed with sterile gauze. The patients tetanus status updated as needed. The patient tolerated the procedure well. Complications: none. Departure Departure Impression: Primary Impression: Abscess Disposition: HOME / SELF CARE / HOMELESS Condition: GOOD Referrals: RAFAEL BAIRES MD (PCP) Patient Instructions: Abscess Additional Instructions: You were seen in the emergency department today for an abscess. This was drained in the emergency department. A dressing was placed. Please keep this area clean and dry. You can wash with mild soap and warm water. Please keep th e dressing in place. You can continue to place warm compresses on the area to aid in drainage. Take Tylenol and ibuprofen for any pain at home. You are being discharged home with an antibiotic. Please start and finish the antibiotic completely. Follow-up with your primary care provider within 2 days for wound recheck. Return to the emergency department if you develop high fev ers refractory to treatment, intractable nausea or vomiting, worsening of your pain, fatigue and weakness, and any signs of worsening of the infection as evidenced by increased pain/swelling/redness/warmth. Scripts Clindamycin Hcl (CLINDAMYCIN HCL) 150 Mg Capsule 450 MG PO TID for 7 Days, #63 CAP 0 Refills Prov: VIC HALL APRN 07/20/21 VIC HALL APRN Jul 20, 2021 13:59
[2021-07-20] MEDS ORDERED: DIPHTH,PERTUSS(ACELL),TET TOX 0.5 ML DISP.SYRIN. VAX IM ONE (14:00)
[2021-07-20] MEDS ORDERED: LIDOCAINE 1% Multi-Dose 20 ML VIAL. INJ ONE (14:00)
== END 2021-07-20 14:58 | disposition home or self-care (01) ==
LOC: ER 12:36
DX: L02.412 Cutaneous abscess of left axilla (principal); I11.0 Hypertensive heart disease with heart failure; I50.9 Heart failure, unspecified; J44.9 Chronic obstructive pulmonary disease, unspecified; E78.00 Pure hypercholesterolemia, unspecified; F17.210 Nicotine dependence, cigarettes, uncomplicated; Z88.0 Allergy status to penicillin; Z91.040 Latex allergy status
CPT/HCPCS: 10060; 99283

== ENCOUNTER 2021-07-26 05:15 | Inpatient (IN) | payer MEDICARE, OTHER ==
[~2021-07-26] VITALS: Ht 162.6 cm; Wt 84.6 kg
[~2021-07-26 05:15] MED LIST changes: +CLIN150C16 PO
--- NOTE | 2021-07-26 05:28 | PHYS DOC ---
Past Medical History Past Medical History: CHF, COPD, High Cholesterol, Hypertension Past Surgical History: Hysterectomy, Other Additional Past Surgical Histo: AICD,ABD SURG Smoking Status: Current Every Day Smoker Alcohol Use: None Drug Use: Marijuana Adult General Chief Complaint Chief Complaint: SHORTNESS OF BREATH HPI HPI Patient is a 61 year old female with dyspnea. Symptoms started earlier yesterday. Patient has had a nonproductive cough. She has a history of COPD and had an [facility] in November of last year. She had a defibrillator placed at that time as well. She denies any chest pain at this time. No fever. She has been vaccinated for Covid and has not had any sick contacts recently. Patient is a smoker but is down to 1 cigarette/day at this time. Review of Systems Review of Systems Constitutional: Denies fever Eyes: Denies change in visual acuity or eye pain HENT: Denies sore throat Respiratory: Reports shortness of breath Cardiovascular: Denies chest pain GI: Denies abd pain : Denies dysuria Musculoskeletal: Denies back or extremity injury Integument: Denies rash or skin lesions Neurologic: Denies headache, focal weakness or sensory changes All other systems were reviewed and found to be within normal limits, except as documented in this note. Current Medications Current Medications Current Medications Medications (Trade) Dose Ordered Sig/Rhys Start Time Stop Time Status Last Admin Dose Admin Albuterol/ Ipratropium (Duoneb) 3 ml 1X ONCE 07/26/21 05:30 07/26/21 05:31 DC Methylprednisolone Sodium Succinate (SOLU-Medrol 125MG VIAL) 125 mg 1X ONCE 07/26/21 05:30 07/26/21 05:31 DC Allergies Allergies Allergies Coded Allergies Type Severity Reaction Last Updated Verified Latex, Natural Rubber Allergy Intermediate Itching 06/04/19 Yes Penicillins Allergy Intermediate Rash 06/04/19 Yes Physical Exam Physical Exam Constitutional: Well developed, well nourished, no acute distress, non-toxic appearance. HENT: Normocephalic, atraumatic, bilateral external ears normal, mucosa moist, nose normal. Eyes: EOMI, conjunctiva normal, no discharge. Neck: Normal range of motion, supple, no stridor, no meningeal signs. Cardiovascular: Regular rate and rhythm Lungs & Thorax: Scattered wheezes bilaterally with overall good air exchange Abdomen: Soft, no tenderness or obvious masses Skin: Warm, dry, no erythema, no rash. Extremities: No tenderness, no cyanosis, no clubbing, ROM intact, no edema. Neurologic: Alert and oriented, normal motor function, normal sensory function, no focal deficits noted. Psychologic: Affect normal, judgement normal, mood normal. EKG EKG [] Interpretation Time: Twelve-lead EKG demonstrates a sinus rhythm with a rate of 77. NV, QRS and QT corrected intervals are within normal limits with a borderline QRS 106 ms and a borderline QT corrected at 477. There is about 1/[address] elevation in inferior leads III and aVF with a Q-wave present in each of these leads as well. There is a single PVC present on the EKG. T waves are inverted in the lateral precordial leads and flattening in the inferior leads. Radiology/Procedures Radiology/Procedures [] Course & Med Decision Making Course & Med Decision Making Pertinent Labs and Imaging studies reviewed. (See chart for details) [] This is a 61-year-old female with dyspnea. She has a history of COPD as well as coronary artery disease. Her EKG is a little bit suspicious for cardiac ischemia. We have ordered a DuoNeb and Solu-Medrol, will add on an aspirin and some Nitropaste to these orders. She has a chest x-ray and laboratory panel pending at this time. She will be signed over to the oncoming physician for final disposition. Dragon Disclaimer Dragon Disclaimer This electronic medical record was generated, in whole or in part, using a voice recognition dictation system. Departure Departure Impression: Primary Impression: Dyspnea Condition: GUARDED Referrals: RAFAEL BAIRES MD (PCP) JERRI OROZCO MD Jul 26, 2021 05:28
[2021-07-26] MEDS ORDERED: IPRATRPIUM/ALBUTEROL 0.5/2.5MG 3 ML NEBU. NEB ONE (05:30)
[2021-07-26] MEDS ORDERED: methylPREDNISolone SOD SUCC PF 125 MG/2 ML VIAL. IV ONE (05:30)
[2021-07-26 05:43] LABS: BASO # 0.1 x10^3/uL (0.0-0.2); BASO % 1 % (0-3); EOS # 0.1 x10^3/uL (0.0-0.7); EOS % 2 % (0-3); HEMOGLOBIN 12.8 g/dL (12.0-15.5); LYMPH # 1.8 x10^3/uL (1.0-4.8); LYMPH % 25 % (24-48); MEAN CORPUSCULAR HEMOGLOBIN 27 pg (25-35); MEAN CORPUSCULAR HGB CONC 31 g/dL (31-37); MEAN CORPUSCULAR VOLUME 86 fL (79-100); MONO # 0.5 x10^3/uL (0.0-1.1); MONO % 7 % (0-9); NEUT # 4.6 x10^3/uL (1.8-7.7); NEUT % 65 % (31-73); PLATELET COUNT 315 x10^3/uL (140-400); RED BLOOD COUNT 4.79 x10^6/uL (3.50-5.40); RED CELL DISTRIBUTION WIDTH 14.9 % (11.5-14.5); WHITE BLOOD COUNT 7.1 x10^3/uL (4.0-11.0)
[2021-07-26 05:54] LABS: BASE EXCESS ABG -2 mmol/L (-3-3); HCO3 ABG 22 mmol/L (21-28); PCO2 ABG 35 mmHg (35-46); PO2 ABG 62 mmHg (65-108); SAT O2 ABG 91 % (92-99)
[2021-07-26 05:56] LABS: FIO2 ABG 21
[2021-07-26] MEDS ORDERED: NITROGLYCERIN OINT 1 GM PACKET. TP ONE (06:00)
[2021-07-26] MEDS ORDERED: ASPIRIN CHEWABLE 81 MG TABLET. PO ONE (06:00)
[2021-07-26 06:03] LABS: CALCIUM 8.9 mg/dL (8.5-10.1); CREATININE 1.3 mg/dL (0.6-1.0); GFR 50.4; INFLUENZA A PATIENT NEGATIVE (NEGATIVE); INFLUENZA B PATIENT NEGATIVE (NEGATIVE); POTASSIUM 4.5 mmol/L (3.5-5.1)
[2021-07-26 06:07] LABS: ALBUMIN 2.9 g/dL (3.4-5.0); ALBUMIN/GLOBULIN RATIO 0.6 (1.0-1.7); MAGNESIUM 2.2 mg/dL (1.8-2.4); TOTAL BILIRUBIN 0.3 mg/dL (0.2-1.0); TOTAL PROTEIN 7.4 g/dL (6.4-8.2)
--- NOTE | 2021-07-26 06:23 | RAD ---
EXAMINATION: XR CHEST 1V CLINICAL HISTORY: Dyspnea. EXAM DATE/TIME: 07/26/2021 5:45 AM COMPARISON: 05/26/2018 FINDINGS: Lines, Tubes, and Devices: Left-sided single-chamber cardiac pacemaker/ICD. Cardiomediastinal Silhouette: Cardiomegaly, similar to prior study. Aortic atherosclerotic calcificat ion. Lungs and Pleura: No evidence of focal airspace consolidation or definite pleural effusion. Nonspecif ic interstitial prominence, similar to prior study and likely chronic. Bones and Soft Tissues: No acute osseous abnormality. IMPRESSION: No definitive evidence of acute cardiopulmonary abnormality. Electronically signed by: Moreno Miles DO (07/26/2021 6:21 AM) STEVEN
[2021-07-26] MEDS ORDERED: IOHEXOL 350 MG/ML 100 ML VIAL. IV ONE (06:45)
[2021-07-26] MEDS ORDERED: CONTRAST GIVEN. MC PRN (07:00)
--- NOTE | 2021-07-26 07:21 | EKG ---
[facility] [address] [place] [address] Test Date: 2021-07-26 Test Time: 05:44:33 Pat Name: FOSTER SOLOMON Department: Room: [facility] Gender: F Public Affairs Specialist: : [id number] Requested By: JERRI OROZCO Order Number: [id number] Reading MD: Ihsan Alfaro Measurements Intervals [place] Rate: 77 P: 31 LA: 196 QRS: 5 QRSD: 106 T: 100 QT: 420 QTc: 477 Interpretive Statements SINUS RHYTHM LEFT ATRIAL ABNORMALITY T ABNORMALITY IN ANTEROLATERAL LEADS PROLONGED QT ABNORMAL ECG Electronically Signed On 07-28-2021 21:32:24 CDT by Ihsan Alfaro
--- NOTE | 2021-07-26 08:02 | RAD ---
CTA CHEST INDICATION: dyspnea, tachypnea, elevated d dimer Comparison: Radiograph 07/26/2021. CT chest 12/15/2020. TECHNIQUE: Following the uneventful administration of intravenous contrast, 75 cc Omnipaque 350, axia l CT sections were obtained through the lungs and upper abdomen. Multiplanar reconstructions and MIP images were obtained. RS compliance statement: One or more of the following individualized dose reduction techniques were utilized for this examinat ion: 1. Automated exposure control 2. Adjustment of the mA and/or kV according to patient size 3. Use of iterative reconstruction technique FINDINGS: Pulmonary arteries: No evidence of pulmonary thromboembolic disease Lungs and Airways: No pulmonary mass or consolidation. Symmetric interlobular septal thickening. Midd le lobe perfissural nodule with elongate morphology, consistent with intrapulmonary lymphoid tissue. Centrilobular emphysema. No abnormality of the central airways. Pleura: Trace right pleural effusion. Heart and Mediastinum: The visualized thyroid is normal in size and attenuation. No axillary or supra clavicular lymphadenopathy. No mediastinal, hilar or retrocrural lymphadenopathy. Cardiomegaly. Vikki l annular calcification. No pericardial effusion. Coronary artery atherosclerotic disease. Normal jus iber thoracic aorta. Abdomen: Ventral abdominal wall hernia containing a portion of the left hepatic lobe. Bones and Soft Tissues: Degenerative changes of the spine. IMPRESSION: 1. No evidence of pulmonary thromboembolic disease. 2. Pulmonary interstitial edema. 3. Trace right pleural effusion. Electronically signed by: Enio Krishnan MD (07/26/2021 8:00 AM) [id number]
[2021-07-26] MEDS ORDERED: SPIR25TA5 PO (09:52)
[2021-07-26] MEDS ORDERED: ALBU2.5V14 NEB (09:52)
[2021-07-26] MEDS ORDERED: METO-313 PO (09:52)
[2021-07-26] MEDS ORDERED: FURO40TA4 PO (09:52)
[2021-07-26] MEDS ORDERED: ASPI-630 PO (09:52)
[2021-07-26] MEDS ORDERED: ACET325T21 PO (09:52)
[2021-07-26] MEDS ORDERED: CLOP75TA PO (09:52)
[2021-07-26] MEDS ORDERED: ATOR40TA59 PO (09:52)
[2021-07-26] MEDS ORDERED: EMPA25TA3 PO (09:52)
[2021-07-26] MEDS ORDERED: MEXI150C PO (09:52)
[2021-07-26] MEDS ORDERED: LOSA-73 PO (09:52)
[2021-07-26] MEDS ORDERED: BENZ-8 PO (09:52)
[2021-07-26 11:00] VITALS: BP_SYST 160; BP_SYST 167; BP_DIAS 107; BP_DIAS 109
[2021-07-26] MEDS ORDERED: BENZONATATE 100 MG CAPSULE. PO PRN (11:00)
[2021-07-26] MEDS ORDERED: hydrALAZINE 20 MG/ML VIAL. IVP PRN ×2 (11:00→15:15)
[2021-07-26] MEDS: METOPROLOL TART IMMED RELEASE 50 MG TABLET. PO SCH ×2 (12:14→20:40)
[2021-07-26] MEDS: ATORVASTATIN CALCIUM 40 MG TABLET. PO SCH (12:14)
[2021-07-26] MEDS: CLOPIDOGREL BISULFATE 75 MG TABLET PO SCH (12:14)
[2021-07-26] MEDS: LOSARTAN POTASSIUM 50 MG TABLET. PO SCH (12:14)
[2021-07-26] MEDS: SPIRONOLACTONE 25 MG TABLET PO SCH (12:14)
[2021-07-26] MEDS: EMPAGLIFLOZIN 25 MG TABLET. PO SCH (12:14)
[2021-07-26] MEDS: FUROSEMIDE 40 MG TABLET. PO SCH (12:14)
--- NOTE | 2021-07-26 12:29 | PDOC1 ---
History and Physical Date of Admission Date of Admission DATE: 07/26/21 TIME: 12:28 Identification/Chief Complaint Chief Complaint Cough, shortness of breath Source Source: Patient History of Present Illness History of Present Illness Patient is a 61-year-old female with past medical history COPD, who presents to the ED with complaints of worsening wheezing and shortness of breath since last night. She reports associated cough with clear sputum. She states she normally does not require oxygen, but upon my evaluation she is breathing on 2 L nasal cannula. Labs from admission showed BUN 33, creatinine 1.3, CBG 128, AST 56, ALT 65, albumin 2.9. Chest x-ray and CTA chest showed pulmonary interstitial edema and trace right pleural effusion. She will be admitted for further medical management. Past Medical History Cardiovascular: HTN, Hyperlipidemia Pulmonary: No pertinent hx GI: No pertinent hx Heme/Onc: Other Hepatobiliary: No pertinent hx Psych: Addictions Rheumatologic: No pertinent hx Infectious disease: No pertinent hx Renal/: No pertinent hx Endocrine: No pertinent hx Past Surgical History Past Surgical History: Tonsillectomy, Hysterectomy Family History Family History: Alcohol Abuse, Chronic Bronchitis, Coronary Artery Disease, Other Social History Smoke: <1 pack per day ALCOHOL: none Drugs: None, Marijuana Current Problem List Problem List Problems Medical Problems: (1) Dyspnea Status: Acute Current Medications Current Medications Current Medications Albuterol/ Ipratropium (Duoneb) 3 ml 1X ONCE NEB Last administered on 07/26/21at 06:00; Start 07/26/21 at 05:30; Stop 07/26/21 at 05:31; Status DC Methylprednisolone Sodium Succinate (SOLU-Medrol 125MG VIAL) 125 mg 1X ONCE IV Last administered on 07/26/21at 06:05; Start 07/26/21 at 05:30; Stop 07/26/21 at 05:31; Status DC Aspirin (Aspirin Chewable) 324 mg 1X ONCE PO Last administered on 07/26/21at 06:05; Start 07/26/21 at 06:00; Stop 07/26/21 at 06:01; Status DC Nitroglycerin (Nitro-Bid Oint) 1 inch 1X ONCE TP Last administered on 07/26/21at 07:15; Start 07/26/21 at 06:00; Stop 07/26/21 at 06:01; Status DC Iohexol (Omnipaque 350 Mg/ml) 75 ml 1X ONCE IV Last administered on 07/26/21at 06:56; Start 07/26/21 at 06:45; Stop 07/26/21 at 06:46; Status DC Info (CONTRAST GIVEN -- Rx MONITORING) 1 each PRN DAILY PRN MC SEE COMMENTS; Start 07/26/21 at 07:00; Stop 07/28/21 at 06:59 Hydralazine HCl (Apresoline Inj) 10 mg PRN Q4HRS PRN IVP ELEVATED BP, SEE COMMENTS; Start 07/26/21 at 11:00 Aspirin (Aspirin Chewable) 81 mg DAILY PO ; Start 07/27/21 at 09:00 Atorvastatin Calcium (Lipitor) 40 mg DAILY PO Last administered on 07/26/21at 12:14; Start 07/26/21 at 12:00 Benzonatate (Tessalon Perle) 100 mg PRN Q6HRS PRN PO COUGH; Start 07/26/21 at 11:00 Clopidogrel Bisulfate (Plavix) 75 mg DAILY PO Last administered on 07/26/21at 12:14; Start 07/26/21 at 11:00 Empaglifozin (Jardiance) 25 mg DAILY PO Last administered on 07/26/21at 12:14; Start 07/26/21 at 12:00 Furosemide (Lasix) 40 mg DAILY PO Last administered on 07/26/21at 12:14; Start 07/26/21 at 12:00 Losartan Potassium (Cozaar) 50 mg DAILY PO Last administered on 07/26/21at 12:14; Start 07/26/21 at 12:00 Spironolactone (Aldactone) 25 mg DAILY PO Last administered on 07/26/21at 12:14; Start 07/26/21 at 12:00 Metoprolol Tartrate (Lopressor) 50 mg BID PO Last administered on 07/26/21at 12:14; Start 07/26/21 at 12:00 Non-Formulary Medication (Mexiletine Hcl ) 150 mg Q8HRS PO ; Start 07/26/21 at 14:00; Status Cancel Non-Formulary Medication (Non Formulary Item) 1 ea Q8HRS PO ; Start 07/26/21 at 14:00; Status UNV Active Scripts Active Reported Spironolactone 25 Mg Tablet 1 Tab PO DAILY Mexiletine Hcl 150 Mg Capsule 150 Mg PO Q8HRS Lopressor (Metoprolol Tartrate) 100 Mg Tablet 50 Mg PO BID Losartan Potassium 50 Mg Tablet 50 Mg PO DAILY Jardiance (Empaglifozin) 25 Mg Tablet 25 Mg PO DAILY Furosemide 40 Mg Tablet 1 Tab PO DAILY Clopidogrel (Clopidogrel Bisulfate) 75 Mg Tablet 1 Tab PO DAILY Benzonatate 100 Mg Capsule 1 Cap PO Q6HRS PRN Atorvastatin Calcium 40 Mg Tablet 1 Tab PO DAILY Aspirin 81 Mg Tab.chew 1 Tab PO DAILY Albuterol Sulfate Conc Neb Soln (Albuterol Sulfate) 2.5 Mg/0.5 Ml Vial.neb 90 Mcg NEB Q4HRS PRN Acetaminophen 325 Mg Tablet 1 Tab PO PRN Q4-6HRS PRN 24 Days Furosemide 40 Mg Tablet 40 Mg PO DAILY Klor-Con 10 (Potassium Chloride) 10 Meq Tablet.er 10 Meq PO DAILY Magnesium Oxide 400 Mg Tablet 400 Mg PO BID Allergies Allergies: Coded Allergies: Latex, Natural Rubber (Verified Allergy, Intermediate, Itching, 06/04/19) Penicillins (Verified Allergy, Intermediate, Rash, 06/04/19) tolerated KEFLEX ROS Review of System GENERAL: No history of weight change, weakness or fevers. SKIN: No bruising, hair changes or rashes. EYES: No blurred, double or loss of vision. NOSE AND THROAT: No history of nosebleeds, hoarseness or sore throat. HEART: Denies chest pain, denies palpitations. LUNGS: Cough, wheezing, shortness of breath. GASTROINTESTINAL: Denies nausea, vomiting, abdominal pain. GENITOURINARY: Denies dysuria, frequency, urgency, hematuria. NEUROLOGIC: Denies history of numbness, tingling, tremor or weakness. PSYCHIATRIC: Denies anxiety, denies depression. ENDOCRINE: No history of heat or cold intolerance, polyuria or polydipsia. EXTREMITIES: Denies muscle weakness, joint pain, pain on walking or stiffness. Physical Exam Physical Exam General: Alert, Oriented X3, Cooperative, No acute distress HEENT: PERRLA, EOMI Lungs: Bibasilar crackles, wheezing. Heart: RRR, no murmurs. Defibrillator to right chest wall. Cardiovascular: S1, S2 Abdomen: Normal bowel sounds, Soft, No tenderness Extremities: No clubbing, No cyanosis Skin: No rashes, No significant lesion Neuro: Normal speech, Normal tone, Sensation intact Psych/Mental Status: Mental status NL, Mood NL Vitals Vitals Vital Signs Date Time Temp Pulse Resp B/P (MAP) Pulse Ox O2 Delivery O2 Flow Rate FiO2 07/26/21 12:14 70 152/86 07/26/21 09:27 27 96 Nasal Cannula 2.0 07/26/21 05:20 98.7 98.7 Labs Labs Laboratory Tests Test 07/26/21 05:30 07/26/21 05:36 07/26/21 08:32 White Blood Count 7.1 x10^3/uL (4.0-11.0) Red Blood Count 4.79 x10^6/uL (3.50-5.40) Hemoglobin 12.8 g/dL (12.0-15.5) Hematocrit 41.0 % (36.0-47.0) Mean Corpuscular Volume 86 fL (79-100) Mean Corpuscular Hemoglobin 27 pg (25-35) Mean Corpuscular Hemoglobin Concent 31 g/dL (31-37) Red Cell Distribution Width 14.9 % (11.5-14.5) Platelet Count 315 x10^3/uL (140-400) Neutrophils (%) (Auto) 65 % (31-73) Lymphocytes (%) (Auto) 25 % (24-48) Monocytes (%) (Auto) 7 % (0-9) Eosinophils (%) (Auto) 2 % (0-3) Basophils (%) (Auto) 1 % (0-3) Neutrophils # (Auto) 4.6 x10^3/uL (1.8-7.7) Lymphocytes # (Auto) 1.8 x10^3/uL (1.0-4.8) Monocytes # (Auto) 0.5 x10^3/uL (0.0-1.1) Eosinophils # (Auto) 0.1 x10^3/uL (0.0-0.7) Basophils # (Auto) 0.1 x10^3/uL (0.0-0.2) D-Dimer (Bridgette) 2.12 ug/mlFEU (0.00-0.50) Sodium Level 145 mmol/L (136-145) Potassium Level 4.5 mmol/L (3.5-5.1) Chloride Level 110 mmol/L (98-107) Carbon Dioxide Level 25 mmol/L (21-32) Anion Gap 10 (6-14) Blood Urea Nitrogen 33 mg/dL (7-20) Creatinine 1.3 mg/dL (0.6-1.0) Estimated GFR (Cockcroft-Gault) 50.4 BUN/Creatinine Ratio 25 (6-20) Glucose Level 128 mg/dL (70-99) Lactic Acid Level 1.1 mmol/L (0.4-2.0) Calcium Level 8.9 mg/dL (8.5-10.1) Magnesium Level 2.2 mg/dL (1.8-2.4) Total Bilirubin 0.3 mg/dL (0.2-1.0) Aspartate Amino Transf (AST/SGOT) 56 U/L (15-37) Alanine Aminotransferase (ALT/SGPT) 65 U/L (14-59) Alkaline Phosphatase 111 U/L (46-116) Troponin I High Sensitivity 46 ng/L (4-50) 41 ng/L (4-50) Total Protein 7.4 g/dL (6.4-8.2) Albumin 2.9 g/dL (3.4-5.0) Albumin/Globulin Ratio 0.6 (1.0-1.7) Influenza Type A Antigen Negative (NEGATIVE) Influenza Type B Antigen Negative (NEGATIVE) SARS-CoV-2 Antigen (Rapid) Negative (NEGATIVE) O2 Saturation 91 % (92-99) Arterial Blood pH 7.42 (7.35-7.45) Arterial Blood pCO2 at Patient Temp 35 mmHg (35-46) Arterial Blood pO2 at Patient Temp 62 mmHg (65-108) Arterial Blood HCO3 22 mmol/L (21-28) Arterial Blood Base Excess -2 mmol/L (-3-3) FiO2 21 Laboratory Tests Test 07/26/21 05:30 07/26/21 05:36 07/26/21 08:32 White Blood Count 7.1 x10^3/uL (4.0-11.0) Red Blood Count 4.79 x10^6/uL (3.50-5.40) Hemoglobin 12.8 g/dL (12.0-15.5) Hematocrit 41.0 % (36.0-47.0) Mean Corpuscular Volume 86 fL (79-100) Mean Corpuscular Hemoglobin 27 pg (25-35) Mean Corpuscular Hemoglobin Concent 31 g/dL (31-37) Red Cell Distribution Width 14.9 % (11.5-14.5) Platelet Count 315 x10^3/uL (140-400) Neutrophils (%) (Auto) 65 % (31-73) Lymphocytes (%) (Auto) 25 % (24-48) Monocytes (%) (Auto) 7 % (0-9) Eosinophils (%) (Auto) 2 % (0-3) Basophils (%) (Auto) 1 % (0-3) Neutrophils # (Auto) 4.6 x10^3/uL (1.8-7.7) Lymphocytes # (Auto) 1.8 x10^3/uL (1.0-4.8) Monocytes # (Auto) 0.5 x10^3/uL (0.0-1.1) Eosinophils # (Auto) 0.1 x10^3/uL (0.0-0.7) Basophils # (Auto) 0.1 x10^3/uL (0.0-0.2) D-Dimer (Bridgette) 2.12 ug/mlFEU (0.00-0.50) Sodium Level 145 mmol/L (136-145) Potassium Level 4.5 mmol/L (3.5-5.1) Chloride Level 110 mmol/L (98-107) Carbon Dioxide Level 25 mmol/L (21-32) Anion Gap 10 (6-14) Blood Urea Nitrogen 33 mg/dL (7-20) Creatinine 1.3 mg/dL (0.6-1.0) Estimated GFR (Cockcroft-Gault) 50.4 BUN/Creatinine Ratio 25 (6-20) Glucose Level 128 mg/dL (70-99) Lactic Acid Level 1.1 mmol/L (0.4-2.0) Calcium Level 8.9 mg/dL (8.5-10.1) Magnesium Level 2.2 mg/dL (1.8-2.4) Total Bilirubin 0.3 mg/dL (0.2-1.0) Aspartate Amino Transf (AST/SGOT) 56 U/L (15-37) Alanine Aminotransferase (ALT/SGPT) 65 U/L (14-59) Alkaline Phosphatase 111 U/L (46-116) Troponin I High Sensitivity 46 ng/L (4-50) 41 ng/L (4-50) Total Protein 7.4 g/dL (6.4-8.2) Albumin 2.9 g/dL (3.4-5.0) Albumin/Globulin Ratio 0.6 (1.0-1.7) Influenza Type A Antigen Negative (NEGATIVE) Influenza Type B Antigen Negative (NEGATIVE) SARS-CoV-2 Antigen (Rapid) Negative (NEGATIVE) O2 Saturation 91 % (92-99) Arterial Blood pH 7.42 (7.35-7.45) Arterial Blood pCO2 at Patient Temp 35 mmHg (35-46) Arterial Blood pO2 at Patient Temp 62 mmHg (65-108) Arterial Blood HCO3 22 mmol/L (21-28) Arterial Blood Base Excess -2 mmol/L (-3-3) FiO2 21 Images Images PATIENT: FOSTER SOLOMON ACCOUNT: [id number] : 1960 LOCATION: ER AGE: 61 SEX: F EXAM STATUS: REG ER ORD. PHYSICIAN: JERRI OROZCO MD REASON: dyspnea PROCEDURE: CHEST AP ONLY EXAMINATION: XR CHEST 1V CLINICAL HISTORY: Dyspnea. EXAM DATE/TIME: 07/26/2021 5:45 AM COMPARISON: 05/26/2018 FINDINGS: Lines, Tubes, and Devices: Left-sided single-chamber cardiac pacemaker/ICD. Cardiomediastinal Silhouette: Cardiomegaly, similar to prior study. Aortic atherosclerotic calcification. Lungs and Pleura: No evidence of focal airspace consolidation or definite pleural effusion. Nonspecific interstitial prominence, similar to prior study and likely chronic. Bones and Soft Tissues: No acute osseous abnormality. IMPRESSION: No definitive evidence of acute cardiopulmonary abnormality. Electronically signed by: Moreno Correa DO (07/26/2021 6:21 AM) [facility] DICTATED and SIGNED BY: MORENO CORREA DO DATE: 07/26/21 0619 Addendum: SKYE MATA DO on 07/26/21 @ 08:04 IMAGING REPORT Signed PATIENT: FOSTER SOLOMON ACCOUNT: [id number] : 1960 LOCATION: ER AGE: 61 SEX: F EXAM STATUS: REG ER ORD. PHYSICIAN: SKYE MATA DO REASON: dyspnea, tachypnea, elevated d dimer;OMNI 350,75ML PROCEDURE: CT ANGIOGRAPHY CHEST CTA CHEST INDICATION: dyspnea, tachypnea, elevated d dimer Comparison: Radiograph 07/26/2021. CT chest 12/15/2020. TECHNIQUE: Following the uneventful administration of intravenous contrast, 75 cc Omnipaque 350, axial CT sections were obtained through the lungs and upper abdomen. Multiplanar reconstructions and MIP images were obtained. PQRS compliance statement: One or more of the following individualized dose reduction techniques were utilized for this examination: 1. Automated exposure control 2. Adjustment of the mA and/or kV according to patient size 3. Use of iterative reconstruction technique FINDINGS: Pulmonary arteries: No evidence of pulmonary thromboembolic disease Lungs and Airways: No pulmonary mass or consolidation. Symmetric interlobular septal thickening. Middle lobe perfissural nodule with elongate morphology, consistent with intrapulmonary lymphoid tissue. Centrilobular emphysema. No abnormality of the central airways. Pleura: Trace right pleural effusion. Heart and Mediastinum: The visualized thyroid is normal in size and attenuation. No axillary or supraclavicular lymphadenopathy. No mediastinal, hilar or retrocrural lymphadenopathy. Cardiomegaly. Mitral annular calcification. No pericardial effusion. Coronary artery atherosclerotic disease. Normal caliber thoracic aorta. Abdomen: Ventral abdominal wall hernia containing a portion of the left hepatic lobe. Bones and Soft Tissues: Degenerative changes of the spine. IMPRESSION: 1. No evidence of pulmonary thromboembolic disease. 2. Pulmonary interstitial edema. 3. Trace right pleural effusion. VTE Prophylaxis Ordered VTE Prophylaxis Devices: No VTE Pharmacological Prophylaxi: Yes Assessment/Plan Assessment/Plan Acute respiratory failure with hypoxia Acute COPD exacerbation GEMMA Plan: Will provide duo nebulizers and IV Solu-Medrol; will transition to p.o. predni sone. Azithromycin PT/OT Judicious IV fluids Resume home medications next FEN - Cardiac diet PPX - Heparin FULL CODE/surrogate decision-maker is her daughter (Stephanie Holloway) Dispo - inpatient for above Justifications for Admission Other Justification SUSU QUIGLEY MD Jul 26, 2021 12:29
[2021-07-26] MEDS ORDERED: NON FORMULARY ITEM (Mexiletine Hcl 150 MG) PO SCH (14:00)
[2021-07-26] MEDS: MEXILETINE 150 MG PO SCH ×2 (14:00→20:40)
[2021-07-26 15:00] VITALS: BP 155/97
[2021-07-26] MEDS ORDERED: guaiFENesin/CODEINE 100mg/10mg 5 ML LIQUID PO PRN (15:15)
[2021-07-26] MEDS ORDERED: ZOLPIDEM 5 MG TABLET. PO PRN (15:15)
[2021-07-26] MEDS ORDERED: MAGNESIUM HYDROXIDE 2,400 MG/30 ML ORAL.SUSP. PO PRN (15:15)
[2021-07-26] MEDS ORDERED: ACETAMINOPHEN 325 MG TABLET. PO PRN (15:15)
[2021-07-26] MEDS ORDERED: ONDANSETRON PF 4 MG/2 ML VIAL. IVP PRN (15:15)
[2021-07-26] MEDS ORDERED: CALCIUM CARBONATE 500 MG TAB.CHEW PO PRN (15:15)
[2021-07-26] MEDS ORDERED: MAG HYDROX/ALUMINUM HYD/SIMETH 30 ML ORAL.SUSP PO PRN (15:15)
[2021-07-26] MEDS ORDERED: NICOTINE 14MG PATCH. TD PRN (15:30)
[2021-07-26] MEDS ORDERED: AZITHROMYCIN 250 MG TABLET. PO ONE (15:30)
[2021-07-26] MEDS ORDERED: IV NORMAL SALINE 500ML BAG 250 ML IV ONE (15:45)
[2021-07-26] MEDS: IPRATRPIUM/ALBUTEROL 0.5/2.5MG 3 ML NEBU. NEB SCH ×2 (15:48→20:35)
[2021-07-26 19:00] VITALS: BP 128/84
[2021-07-26] MEDS: MAGNESIUM OXIDE 400 MG TABLET PO SCH (20:40)
[2021-07-26] MEDS: methylPREDNISolone SOD SUCC PF 40 MG/ML VIAL. IV SCH (20:40)
[2021-07-26] MEDS: HEPARIN for SUB-Q USE 5,000 UNIT/ML VIAL. SQ SCH (20:41)
[2021-07-26 22:49] VITALS: BP 114/69
[2021-07-27 02:28] VITALS: BP 131/72
[2021-07-27] MEDS: MEXILETINE 150 MG PO SCH ×2 (06:00→14:00)
[2021-07-27] MEDS: HEPARIN for SUB-Q USE 5,000 UNIT/ML VIAL. SQ SCH ×3 (06:04→22:31)
[2021-07-27] MEDS: methylPREDNISolone SOD SUCC PF 40 MG/ML VIAL. IV SCH (06:04)
--- NOTE | 2021-07-27 06:05 | NUR ---
Non-administered Mexiletine as [facility] pharmacy does not have this medication in patient's dose. Advised patient to bring med from home and if not able to bring med from home it can be sent over to [facility] today from [facility].
[2021-07-27 07:00] VITALS: BP 135/82
[2021-07-27] MEDS: IPRATRPIUM/ALBUTEROL 0.5/2.5MG 3 ML NEBU. NEB SCH ×4 (07:29→19:27)
--- NOTE | 2021-07-27 08:28 | PDOC ---
[employer] PROGRESS NOTE Date of Service DOS: DATE: 07/27/21 TIME: 08:25 Chief Complaint Chief Complaint Acute respiratory failure with hypoxia Acute COPD exacerbation GEMMA Plan: Will provide duo nebulizers and IV Solu-Medrol; will transition to p.o. prednisone. Azithromycin PT/OT Judicious IV fluids Resume home medications next FEN - Cardiac diet PPX - Heparin FULL CODE/surrogate decision-maker is her daughter (Stephanie Holloway) Dispo - inpatient for above History of Present Illness History of Present Illness Patient is a 61-year-old female with past medical history COPD, who presents to the ED with complaints of worsening wheezing and shortness of breath since last night. She reports associated cough with clear sputum. She states she normally does not require oxygen, but upon my evaluation she is breathing on 2 L nasal cannula. Labs from admission showed BUN 33, creatinine 1.3, BG 128, AST 56, ALT 65, albumin 2.9. Chest x-ray and CTA chest showed pulmonary interstitial edema and trace right pleural effusion. She will be admitted for further medical management. 07/27: Still with audible wheezing today. Per Biotronik report thoracic impedance increased consistent with fluid overload. Discussed with cardiology continue furosemide. Counseled heavily on smoking cessation she notes she is cut down to 1 cigarette prior to admission still with dyspnea on exertion today. Vitals/I&O Vitals/I&O: Vital Signs Date Time Temp Pulse Resp B/P (MAP) Pulse Ox O2 Delivery O2 Flow Rate FiO2 07/27/21 07:29 96 Nasal Cannula 2.0 07/27/21 02:28 98.7 78 18 131/72 (91) 98.7 I & O 07/26/21 07/26/21 07/27/21 15:00 23:00 07:00 Intake Total 275 ml 500 ml Output Total 201 ml 400 ml Balance 74 ml 500 ml -400 ml Physical Exam General: Alert Lungs: Wheezing, Crackles Labs Labs: Laboratory Tests Test 07/26/21 08:32 Troponin I High Sensitivity 41 ng/L (4-50) Assessment and Plan Assessmemt and Plan Problems Medical Problems: (1) Dyspnea Status: Acute Comment Review of Relevant I have reviewed the following items nidia (where applicable) has been applied. Medications: Current Medications Medications (Trade) Dose Ordered Sig/Rhys Route PRN Reason Start Time Stop Time Status Last Admin Dose Admin Atorvastatin Calcium (Lipitor) 40 mg DAILY PO 07/26/21 12:00 07/26/21 12:14 Clopidogrel Bisulfate (Plavix) 75 mg DAILY PO 07/26/21 11:00 07/26/21 12:14 Empaglifozin (Jardiance) 25 mg DAILY PO 07/26/21 12:00 07/26/21 12:14 Furosemide (Lasix) 40 mg DAILY PO 07/26/21 12:00 07/26/21 12:14 Losartan Potassium (Cozaar) 50 mg DAILY PO 07/26/21 12:00 07/26/21 12:14 Spironolactone (Aldactone) 25 mg DAILY PO 07/26/21 12:00 07/26/21 12:14 Metoprolol Tartrate (Lopressor) 50 mg BID PO 07/26/21 12:00 07/26/21 20:40 Methylprednisolone Sodium Succinate (SOLU-Medrol 40MG VIAL) 40 mg Q8HRS IV 07/26/21 22:00 07/28/21 21:59 07/27/21 06:04 Albuterol/ Ipratropium (Duoneb) 3 ml RTQID NEB 07/26/21 16:00 07/27/21 07:29 Azithromycin (Zithromax) 500 mg 1X ONCE PO 07/26/21 15:30 07/26/21 15:31 DC 07/26/21 15:30 Magnesium Oxide (Magnesium Oxide) 400 mg BID PO 07/26/21 21:00 07/26/21 20:40 Heparin Sodium (Porcine) (Heparin Sodium) 5,000 unit Q8HRS SQ 07/26/21 22:00 07/27/21 06:04 Sodium Chloride 250 ml @ 250 mls/hr 1X ONCE IV 07/26/21 15:45 07/26/21 16:44 DC 07/26/21 15:45 Justifications for Admission Other Justification SANG GODFREY MD Jul 27, 2021 08:28
[2021-07-27] MEDS: SPIRONOLACTONE 25 MG TABLET PO SCH (08:53)
[2021-07-27] MEDS: ASPIRIN CHEWABLE 81 MG TABLET. PO SCH (08:53)
[2021-07-27] MEDS: CLOPIDOGREL BISULFATE 75 MG TABLET PO SCH (08:53)
[2021-07-27] MEDS: ATORVASTATIN CALCIUM 40 MG TABLET. PO SCH (08:54)
[2021-07-27] MEDS: METOPROLOL TART IMMED RELEASE 50 MG TABLET. PO SCH ×2 (08:54→22:29)
[2021-07-27] MEDS: MAGNESIUM OXIDE 400 MG TABLET PO SCH ×2 (08:54→22:30)
[2021-07-27] MEDS: LOSARTAN POTASSIUM 50 MG TABLET. PO SCH (08:54)
[2021-07-27] MEDS: EMPAGLIFLOZIN 25 MG TABLET. PO SCH (08:54)
[2021-07-27] MEDS: AZITHROMYCIN 250 MG TABLET. PO SCH (08:54)
[2021-07-27] MEDS: FUROSEMIDE 40 MG TABLET. PO SCH (08:54)
[2021-07-27 11:00] VITALS: BP 121/70
--- NOTE | 2021-07-27 13:05 | PDOC2 ---
NIKKY BURRELL BASE MANAGER 07/27/21 1305: CARDIAC CONSULT DATE OF CONSULT Date of Consult DATE: 07/27/21 TIME: 12:36 REASON FOR CONSULT Reason for Consult: CHF, hx of AICD placement REFERRING PHYSICIAN Referring Physician: Renee SOURCE Source: Chart review, Patient HISTORY OF PRESENT ILLNESS HISTORY OF PRESENT ILLNESS This is a 61 yo female admitted for complains of cough and SOA. Her SOA just happened yesterday. She does not use O2 at home. She takes lasix and aldactone daily for her diuretics. She did not ran out of any of her meds. She also takes mexilitine for past VT. Reports of palpitations. No chest pain and no leg swelling. Denies any nausea or vomiting. No fever or chills. PAST MEDICAL HISTORY Past Medical History Cardiovascular: HTN, Hyperlipidemia, CHF, CAD, NICM Pulmonary: No pertinent hx GI: No pertinent hx Heme/Onc: Other (DVT following ankle fx) Hepatobiliary: No pertinent hx Psych: Addictions (ETOH) Rheumatologic: No pertinent hx Infectious disease: No pertinent hx ENT: No pertinent hx Renal/: No pertinent hx Endocrine: No pertinent hx Dermatology: No pertinent hx PAST SURGICAL HISTORY Past Surgical History Tonsillectomy, Hysterectomy, LHC, AICD FAMILY HISTORY Family History: Coronary Artery Disease SOCIAL HISTORY Smoke: <1 pack per day ALCOHOL: occassional Drugs: None Lives: with Family CURRENT MEDICATIONS CURRENT MEDICATIONS Current Medications Medications (Trade) Dose Ordered Sig/Rhys Route PRN Reason Start Time Stop Time Status Last Admin Dose Admin Aspirin (Aspirin Chewable) 81 mg DAILY PO 07/27/21 09:00 07/27/21 08:53 Methylprednisolone Sodium Succinate (SOLU-Medrol 40MG VIAL) 40 mg Q8HRS IV 07/26/21 22:00 07/28/21 21:59 07/27/21 06:04 Albuterol/ Ipratropium (Duoneb) 3 ml RTQID NEB 07/26/21 16:00 07/27/21 07:29 Azithromycin (Zithromax) 500 mg 1X ONCE PO 07/26/21 15:30 07/26/21 15:31 DC 07/26/21 15:30 Azithromycin (Zithromax) 250 mg DAILY PO 07/27/21 09:00 07/31/21 08:59 07/27/21 08:54 Magnesium Oxide (Magnesium Oxide) 400 mg BID PO 07/26/21 21:00 07/27/21 08:54 Heparin Sodium (Porcine) (Heparin Sodium) 5,000 unit Q8HRS SQ 07/26/21 22:00 07/27/21 06:04 Sodium Chloride 250 ml @ 250 mls/hr 1X ONCE IV 07/26/21 15:45 07/26/21 16:44 DC 07/26/21 15:45 ALLERGIES ALLERGIES: Coded Allergies: Latex, Natural Rubber (Verified Allergy, Intermediate, Itching, 06/04/19) Penicillins (Verified Allergy, Intermediate, Rash, 06/04/19) tolerated KEFLEX ROS Review of System 14 point ROS evaluated with pertinent positives noted per HPI PHYSICAL EXAM General: Alert, Oriented X3, Cooperative, No acute distress HEENT: Atraumatic, Mucous membr. moist/pink Lungs: Other (diminished) Heart: Regular rate (SR), Normal S1, Normal S2, Other (Distant heart sounds) Abdomen: Soft, No tenderness Extremities: No cyanosis, No edema, Other (BLE veriscose veins) Skin: No breakdown, No significant lesion Neuro: Normal speech, Sensation intact Psych/Mental Status: Mental status NL, Mood NL MUSCULOSKELETAL: Osteoarthritic changes both hands VITALS/I&O VITALS/I&O: Vital Signs Date Time Temp Pulse Resp B/P (MAP) Pulse Ox O2 Delivery O2 Flow Rate FiO2 07/27/21 11:00 98.1 68 17 121/70 (87) 97 Nasal Cannula 98.1 07/27/21 08:00 2.0 I & O 07/26/21 07/26/21 07/27/21 15:00 23:00 07:00 Intake Total 275 ml 500 ml Output Total 201 ml 400 ml Balance 74 ml 500 ml -400 ml IMAGES IMAGES Previous records from : - Echo showed LVEF 50-55%. Small area of hypokinesis involving the distal inferior wall. The LA was mildly enlarged. - 01/18/16 Nuclear stress test; no evidence of ischemia - 02/27/16 [facility]; Nonobstructive CAD with 20-30% lesion in the distal RCA. Normal LVEDP. Aggressive risk factor modification was recommended. ECHOCARDIOGRAM ECHOCARDIOGRAM [facility] 11/27/2020 The left ventricle is moderately dilated. Mild concentric hypertrophy. The left ventricular systolic function is severely reduced. The ejection fraction by Gill's biplane method is 26%. There are segmental wall motion abnormalities, as coded in the diagram below. No thrombus present The right ventricle is probably normal in size. The right ventricular systolic function is normal. Left Atrium: Moderately dilated. Mitral Valve: Non-specific thickening. No stenosis. Mild to moderate regurgitation. The pulmonary artery pressure could not be estimated due to inadequate tricuspid regurgitation signal. Trivial pericardial effusion adjacent to the right ventricle. Compared with study dated 11/08/20, no significant change is noted. ASSESSMENT/PLAN ASSESSMENT/PLAN 1. Acute on chronic systolic CHF: appears better 2. Hx of VT: on home mexilitine 3. AECOPD with continued tobacco use 4. NICM 5. Hx of nonobstructive CAD 6. HTN: controlled 7. CKD2 8. AICD in situ: [employer]otronik Recommendations 1. BMP. Restart home HF meds. Continue lasix. 2. Continue home mexilitine 3. Will check with device rep re latest download 4. Secondary prevention measures 5. Follow up with [facility] on 08/14/2021 ALEXX MYERS MD 07/27/21 1800: CARDIAC CONSULT ASSESSMENT/PLAN ASSESSMENT/PLAN Patient seen and examined She is feeling mildly less short of breath. I agree with our nurse practitioners assessment and plan. 1. Acute on chronic systolic CHF: Improving on present treatment including Lasix. 2. Hx of VT: on home mexilitine 3. AECOPD with continued tobacco use 4. NICM 5. Hx of nonobstructive CAD 6. HTN: controlled 7. CKD2 8. AICD in situ: Biotronik. Follows with [facility]. NIKKY BURRELL APRN Jul 27, 2021 13:05 ALEXX MYERS MD Jul 27, 2021 18:00
[2021-07-27] MEDS ORDERED: MEXILETINE HCL 200 MG CAPSULE PO SCH (14:00)
[2021-07-27 14:30] VITALS: BP 132/66
--- NOTE | 2021-07-27 14:45 | NUR ---
SS following for discharge planning. SS reviewed pt chart and discussed with pt RN. Pt is from home and is currently requiring oxygen at two liters nasal canula. COVID19 negative. Cardiology following. Pt on IV Solu-Medrol. PT/OT ordered. OT recommended home independent. SS will continue to follow for discharge planning.
[2021-07-27 15:10] LABS: CALCIUM 8.8 mg/dL (8.5-10.1); CREATININE 1.6 mg/dL (0.6-1.0); GFR 39.7; POTASSIUM 4.8 mmol/L (3.5-5.1)
[2021-07-27] MEDS ORDERED: FUROSEMIDE 40 MG/4 ML VIAL. IVP ONE (17:15)
[2021-07-27 19:00] VITALS: BP 115/58
[2021-07-27] MEDS: MEXILETINE HCL 150 MG CAPSULE PO SCH (22:28)
[2021-07-27] MEDS: LACTOBACILLUS RHAMNOSUS GG 1 CAPSULE. PO SCH (22:29)
[2021-07-27 22:33] VITALS: BP 124/69
[2021-07-28 02:40] VITALS: BP 111/60
[2021-07-28] MEDS: MEXILETINE HCL 150 MG CAPSULE PO SCH ×3 (05:29→21:53)
[2021-07-28] MEDS: HEPARIN for SUB-Q USE 5,000 UNIT/ML VIAL. SQ SCH ×3 (05:29→21:54)
[2021-07-28 07:00] VITALS: BP 120/67
[2021-07-28] MEDS: IPRATRPIUM/ALBUTEROL 0.5/2.5MG 3 ML NEBU. NEB SCH ×4 (07:49→20:38)
[2021-07-28] MEDS: CLOPIDOGREL BISULFATE 75 MG TABLET PO SCH (09:39)
[2021-07-28] MEDS: LACTOBACILLUS RHAMNOSUS GG 1 CAPSULE. PO SCH ×2 (09:39→20:37)
[2021-07-28] MEDS: AZITHROMYCIN 250 MG TABLET. PO SCH (09:39)
[2021-07-28] MEDS: LOSARTAN POTASSIUM 50 MG TABLET. PO SCH (09:40)
[2021-07-28] MEDS: ASPIRIN CHEWABLE 81 MG TABLET. PO SCH (09:40)
[2021-07-28] MEDS: METOPROLOL TART IMMED RELEASE 50 MG TABLET. PO SCH ×2 (09:40→20:37)
[2021-07-28] MEDS: ATORVASTATIN CALCIUM 40 MG TABLET. PO SCH (09:41)
[2021-07-28] MEDS: FUROSEMIDE 40 MG TABLET. PO SCH (09:41)
[2021-07-28] MEDS: MAGNESIUM OXIDE 400 MG TABLET PO SCH ×2 (09:41→20:37)
[2021-07-28] MEDS: SPIRONOLACTONE 25 MG TABLET PO SCH (09:41)
[2021-07-28] MEDS: EMPAGLIFLOZIN 25 MG TABLET. PO SCH (09:42)
[2021-07-28] MEDS: predniSONE 20 MG TABLET PO SCH (09:42)
[2021-07-28 10:57] VITALS: BP 139/71
--- NOTE | 2021-07-28 11:08 | PDOC ---
PROGRESS NOTES Date of Service: DATE: 07/28/21 TIME: 11:08 Subjective Subjective No new complaints Objective Objective Vital Signs Date Time Temp Pulse Resp B/P (MAP) Pulse Ox O2 Delivery O2 Flow Rate FiO2 07/28/21 10:57 98.3 79 18 139/71 (93) 96 Nasal Cannula 98.3 07/28/21 07:51 2.0 Intake and Output 07/28/21 07:00 Intake Total 1400 ml Output Total 1850 ml Balance -450 ml Intake Oral 1400 ml Output Urine Total 1850 ml Physical Exam Abdomen: Soft, No tenderness Heart: Regular rate (SR), Normal S1, Normal S2, Other (Distant heart sounds) Extremities: No cyanosis, No edema, Other (BLE veriscose veins) General: Alert HEENT: Atraumatic, Mucous membr. moist/pink Lungs: Other (diminished) MUSCULOSKELETAL: Osteoarthritic changes both hands Neuro: Normal speech, Sensation intact Psych/Mental Status: Mental status NL, Mood NL Skin: No breakdown, No significant lesion Assessment Assessment 1. Acute on chronic systolic CHF: improved 2. Hx of VT: on home mexilitine 3. AECOPD with continued tobacco use 4. NICM 5. Hx of nonobstructive CAD 6. HTN: controlled 7. CKD2 8. AICD in situ: [employer] Recommendations 1. Continue diuretics 2. Continue home mexilitine 3. Secondary prevention measures 4. Follow up with cardiology on 08/14/2021 Plan Plan of Care Problems Medical Problems: (1) Dyspnea Status: Acute Comment Review of Relevant I have reviewed the following items nidia (where applicable) has been applied. Labs Laboratory Tests Test 07/27/21 14:35 Sodium Level 140 mmol/L (136-145) Potassium Level 4.8 mmol/L (3.5-5.1) Chloride Level 106 mmol/L (98-107) Carbon Dioxide Level 22 mmol/L (21-32) Anion Gap 12 (6-14) Blood Urea Nitrogen 44 mg/dL (7-20) Creatinine 1.6 mg/dL (0.6-1.0) Estimated GFR (Cockcroft-Gault) 39.7 Glucose Level 136 mg/dL (70-99) Calcium Level 8.8 mg/dL (8.5-10.1) Medications Current Medications Furosemide (Lasix) 40 mg 1X ONCE IVP Last administered on 07/27/21at 17:12; Start 07/27/21 at 17:15; Stop 07/27/21 at 17:16; Status DC Lactobacillus Rhamnosus (Culturelle) 1 cap BID PO Last administered on 07/28/21at 09:39; Start 07/27/21 at 21:00; Stop 07/31/21 at 20:59 Mexiletine HCl (Mexitil) 150 mg Q8HRS PO ; Start 07/27/21 at 14:00; Status UNV Mexiletine HCl (Mexitil) 150 mg Q8HRS PO Last administered on 07/28/21at 05:29; Start 07/27/21 at 22:00 Prednisone (Prednisone) 20 mg DAILY PO Last administered on 07/28/21at 09:42; Start 07/28/21 at 09:00 Vitals/I & O Vital Sign - Last 24 Hours 07/27/21 07/27/21 07/27/21 07/27/21 14:30 16:26 19:00 19:28 Temp 98.1 98.0 98.1 98.0 Pulse 64 67 Resp 18 18 B/P (MAP) 132/66 (88) 115/58 (77) Pulse Ox 96 98 98 99 O2 Delivery Nasal Cannula Nasal Cannula Nasal Cannula Nasal Cannula O2 Flow Rate 2.0 2.0 07/27/21 07/27/21 07/27/21 07/28/21 20:00 22:29 22:33 02:40 Temp 99.1 97.8 99.1 97.8 Pulse 67 72 70 Resp 18 18 B/P (MAP) 115/58 124/69 (87) 111/60 (77) Pulse Ox 98 96 O2 Delivery Nasal Cannula Nasal Cannula Nasal Cannula O2 Flow Rate 2.0 07/28/21 07/28/21 07/28/21 07/28/21 07:00 07:51 09:40 09:40 Temp 98.1 98.1 Pulse 71 71 71 Resp 18 B/P (MAP) 120/67 (84) 120/67 120/67 Pulse Ox 97 100 O2 Delivery Nasal Cannula Nasal Cannula O2 Flow Rate 2.0 07/28/21 10:57 Temp 98.3 98.3 Pulse 79 Resp 18 B/P (MAP) 139/71 (93) Pulse Ox 96 O2 Delivery Nasal Cannula Intake and Output 07/27/21 07/27/21 07/28/21 15:00 23:00 07:00 Intake Total 600 ml 300 ml 500 ml Output Total 200 ml 900 ml 750 ml Balance 400 ml -600 ml -250 ml ANGELI OCAMOP MD Jul 28, 2021 11:08
--- NOTE | 2021-07-28 12:43 | PDOC ---
[facility] PROGRESS NOTE Date of Service DOS: DATE: 07/28/21 TIME: 12:42 Chief Complaint Chief Complaint Acute respiratory failure with hypoxia Acute COPD exacerbation GEMMA Plan: Will provide duo nebulizers and IV Solu-Medrol; will transition to p.o. prednisone. Azithromycin PT/OT Judicious IV fluids Resume home medications next FEN - Cardiac diet PPX - Heparin FULL CODE/surrogate decision-maker is her daughter (Stephanie Holloway) Dispo - inpatient for above History of Present Illness History of Present Illness Ms Clemente is a 61-year-old female with past medical history COPD, who presents to the ED with complaints of worsening wheezing and shortness of breath since last night. She reports associated cough with clear sputum. She states she normally does not require oxygen, but upon my evaluation she is breathing on 2 L nasal cannula. Labs from admission showed BUN 33, creatinine 1.3, BG 128, AST 56, ALT 65, albumin 2.9. Chest x-ray and CTA chest showed pulmonary interstitial edema and trace right pleural effusion. She will be admitted for further medical management. 07/27: Still with audible wheezing today. Per [employer] report thoracic impedance increased consistent with fluid overload. Discussed with cardiology continue furosemide. Counseled heavily on smoking cessation she notes she is cut down to 1 cigarette prior to admission still with dyspnea on exertion today. 07/28: 1.8 L urine output after IV furosemide, creatinine increased from 1.3-1.6. Still requiring O2. Discussed need for 6-minute walk and repeat metabolic panel prior to discharge. Vitals/I&O Vitals/I&O: Vital Signs Date Time Temp Pulse Resp B/P (MAP) Pulse Ox O2 Delivery O2 Flow Rate FiO2 07/28/21 11:50 Nasal Cannula 2.0 07/28/21 10:57 98.3 79 18 139/71 (93) 96 98.3 I & O 07/27/21 07/27/21 07/28/21 15:00 23:00 07:00 Intake Total 600 ml 300 ml 500 ml Output Total 200 ml 900 ml 750 ml Balance 400 ml -600 ml -250 ml Physical Exam General: Alert Heart: Regular rate (SR), Normal S1, Normal S2, Other (Distant heart sounds) Lungs: Wheezing, Crackles Abdomen: Soft, No tenderness Extremities: No cyanosis, No edema, Other (BLE veriscose veins) Skin: No breakdown, No significant lesion Labs Labs: Laboratory Tests Test 07/27/21 14:35 Sodium Level 140 mmol/L (136-145) Potassium Level 4.8 mmol/L (3.5-5.1) Chloride Level 106 mmol/L (98-107) Carbon Dioxide Level 22 mmol/L (21-32) Anion Gap 12 (6-14) Blood Urea Nitrogen 44 mg/dL (7-20) Creatinine 1.6 mg/dL (0.6-1.0) Estimated GFR (Cockcroft-Gault) 39.7 Glucose Level 136 mg/dL (70-99) Calcium Level 8.8 mg/dL (8.5-10.1) Assessment and Plan Assessmemt and Plan Problems Medical Problems: (1) Dyspnea Status: Acute Comment Review of Relevant I have reviewed the following items nidia (where applicable) has been applied. Medications: Current Medications Medications (Trade) Dose Ordered Sig/Rhys Route PRN Reason Start Time Stop Time Status Last Admin Dose Admin Prednisone (Prednisone) 20 mg DAILY PO 07/28/21 09:00 07/28/21 09:42 Lactobacillus Rhamnosus (Culturelle) 1 cap BID PO 07/27/21 21:00 07/31/21 20:59 07/28/21 09:39 Furosemide (Lasix) 40 mg 1X ONCE IVP 07/27/21 17:15 07/27/21 17:16 DC 07/27/21 17:12 Mexiletine HCl (Mexitil) 150 mg Q8HRS PO 07/27/21 22:00 07/28/21 05:29 Justifications for Admission Other Justification SANG GODFREY MD Jul 28, 2021 12:43
[2021-07-28 15:00] VITALS: BP 110/55
[2021-07-28 19:00] VITALS: BP 120/64
[2021-07-28 23:00] VITALS: BP 114/62
[2021-07-29 03:00] VITALS: BP 117/51
[2021-07-29 05:02] LABS: CALCIUM 8.4 mg/dL (8.5-10.1); CREATININE 1.1 mg/dL (0.6-1.0); GFR 61.1; POTASSIUM 5.1 mmol/L (3.5-5.1)
[2021-07-29] MEDS: MEXILETINE HCL 150 MG CAPSULE PO SCH ×2 (05:46→15:23)
[2021-07-29] MEDS: HEPARIN for SUB-Q USE 5,000 UNIT/ML VIAL. SQ SCH (05:47)
[2021-07-29 07:00] VITALS: BP 119/63
[2021-07-29] MEDS: IPRATRPIUM/ALBUTEROL 0.5/2.5MG 3 ML NEBU. NEB SCH ×3 (07:56→15:29)
--- NOTE | 2021-07-29 08:20 | PDOC ---
PROGRESS NOTES Date of Service: DATE: 07/29/21 TIME: 08:19 Subjective Subjective c/o dyspnea on exertion Objective Objective Vital Signs Date Time Temp Pulse Resp B/P (MAP) Pulse Ox O2 Delivery O2 Flow Rate FiO2 07/29/21 07:57 98 Nasal Cannula 2.0 07/29/21 03:00 98.1 65 20 117/51 (73) 98.1 Intake and Output 07/29/21 07:00 Intake Total 1500 ml Output Total 1400 ml Balance 100 ml Intake Oral 1500 ml Output Urine Total 1400 ml # Voids 3 Physical Exam Abdomen: Soft, No tenderness Heart: Regular rate (SR), Normal S1, Normal S2, Other (Distant heart sounds) Extremities: No cyanosis, No edema, Other (BLE veriscose veins) General: Alert HEENT: Atraumatic, Mucous membr. moist/pink Lungs: Other (diminished) MUSCULOSKELETAL: Osteoarthritic changes both hands Neuro: Normal speech, Sensation intact Psych/Mental Status: Mental status NL, Mood NL Skin: No breakdown, No significant lesion Assessment Assessment 1. Acute on chronic systolic CHF: improved 2. Hx of VT: on home mexilitine 3. AECOPD with continued tobacco use 4. NICM 5. Hx of nonobstructive CAD 6. HTN: controlled 7. CKD2 8. AICD in situ: [employer] Recommendations 1. Continue diuretics 2. Continue home mexilitine 3. Secondary prevention measures 4. Follow up with cardiology on 08/14/2021 Plan Plan of Care Problems Medical Problems: (1) Dyspnea Status: Acute Comment Review of Relevant I have reviewed the following items nidia (where applicable) has been applied. Labs Laboratory Tests Test 07/29/21 04:30 Sodium Level 138 mmol/L (136-145) Potassium Level 5.1 mmol/L (3.5-5.1) Chloride Level 106 mmol/L (98-107) Carbon Dioxide Level 26 mmol/L (21-32) Anion Gap 6 (6-14) Blood Urea Nitrogen 45 mg/dL (7-20) Creatinine 1.1 mg/dL (0.6-1.0) Estimated GFR (Cockcroft-Gault) 61.1 Glucose Level 93 mg/dL (70-99) Calcium Level 8.4 mg/dL (8.5-10.1) Medications Current Medications Prednisone (Prednisone) 20 mg DAILY PO Last administered on 07/28/21at 09:42; Start 07/28/21 at 09:00 Vitals/I & O Vital Sign - Last 24 Hours 07/28/21 07/28/21 07/28/21 07/28/21 09:40 09:40 10:57 11:50 Temp 98.3 98.3 Pulse 71 71 79 Resp 18 B/P (MAP) 120/67 120/67 139/71 (93) Pulse Ox 96 O2 Delivery Nasal Cannula Nasal Cannula O2 Flow Rate 2.0 07/28/21 07/28/21 07/28/21 07/28/21 15:00 15:46 19:00 20:00 Temp 98.0 98.3 98.0 98.3 Pulse 65 87 Resp 18 20 B/P (MAP) 110/55 (73) 120/64 (82) Pulse Ox 96 95 O2 Delivery Nasal Cannula Nasal Cannula Room Air Nasal Cannula O2 Flow Rate 2.0 2.0 07/28/21 07/28/21 07/28/21 07/29/21 20:35 20:37 23:00 03:00 Temp 97.9 98.1 97.9 98.1 Pulse 87 60 65 Resp 20 20 B/P (MAP) 120/64 114/62 (79) 117/51 (73) Pulse Ox 99 98 O2 Delivery Nasal Cannula Room Air Room Air O2 Flow Rate 2.0 07/29/21 07:57 Pulse Ox 98 O2 Delivery Nasal Cannula O2 Flow Rate 2.0 Intake and Output 07/28/21 07/28/21 07/29/21 15:00 23:00 07:00 Intake Total 600 ml 500 ml 400 ml Output Total 1200 ml 200 ml Balance -600 ml 500 ml 200 ml ANGELI OCAMPO MD Jul 29, 2021 08:20
[2021-07-29] MEDS: LACTOBACILLUS RHAMNOSUS GG 1 CAPSULE. PO SCH (08:58)
[2021-07-29] MEDS: METOPROLOL TART IMMED RELEASE 50 MG TABLET. PO SCH (08:58)
[2021-07-29] MEDS: MAGNESIUM OXIDE 400 MG TABLET PO SCH (08:58)
[2021-07-29] MEDS: SPIRONOLACTONE 25 MG TABLET PO SCH (08:58)
[2021-07-29] MEDS: ASPIRIN CHEWABLE 81 MG TABLET. PO SCH (08:59)
[2021-07-29] MEDS: predniSONE 20 MG TABLET PO SCH (08:59)
[2021-07-29] MEDS: LOSARTAN POTASSIUM 50 MG TABLET. PO SCH (08:59)
[2021-07-29] MEDS: ATORVASTATIN CALCIUM 40 MG TABLET. PO SCH (08:59)
[2021-07-29] MEDS: AZITHROMYCIN 250 MG TABLET. PO SCH (08:59)
[2021-07-29] MEDS: CLOPIDOGREL BISULFATE 75 MG TABLET PO SCH (08:59)
[2021-07-29] MEDS: FUROSEMIDE 40 MG TABLET. PO SCH (09:00)
[2021-07-29] MEDS: EMPAGLIFLOZIN 25 MG TABLET. PO SCH (09:00)
[2021-07-29 11:00] VITALS: BP 106/64
--- NOTE | 2021-07-29 12:44 | PDOC ---
[facility] PROGRESS NOTE Date of Service DOS: DATE: 07/29/21 TIME: 12:43 Chief Complaint Chief Complaint Acute respiratory failure with hypoxia Acute COPD exacerbation GEMMA Plan: Will provide duo nebulizers and IV Solu-Medrol; will transition to p.o. prednisone. Azithromycin PT/OT Judicious IV fluids Resume home medications next FEN - Cardiac diet PPX - Heparin FULL CODE/surrogate decision-maker is her daughter (Stephanie Holloway) Dispo - inpatient for above History of Present Illness History of Present Illness Ms Clemente is a 61-year-old female with past medical history COPD, who presents to the ED with complaints of worsening wheezing and shortness of breath since last night. She reports associated cough with clear sputum. She states she normally does not require oxygen, but upon my evaluation she is breathing on 2 L nasal cannula. Labs from admission showed BUN 33, creatinine 1.3, BG 128, AST 56, ALT 65, albumin 2.9. Chest x-ray and CTA chest showed pulmonary interstitial edema and trace right pleural effusion. She will be admitted for further medical management. 07/27: Still with audible wheezing today. Per [employer] report thoracic impedance increased consistent with fluid overload. Discussed with cardiology continue furosemide. Counseled heavily on smoking cessation she notes she is cut down to 1 cigarette prior to admission still with dyspnea on exertion today. 07/28: 1.8 L urine output after IV furosemide, creatinine increased from 1.3-1.6. Still requiring O2. Discussed need for 6-minute walk and repeat metabolic panel prior to discharge. 07/29: Stable dyspnea on exertion went for 6-minute walk today requiring 2 L/min nasal cannula at all times. Discussed need for treatment for cor pulmonale and tobacco cessation given combined COPD and CHF exacerbation. She has outpatient cardiology follow-up and would like home health. Vitals/I&O Vitals/I&O: Vital Signs Date Time Temp Pulse Resp B/P (MAP) Pulse Ox O2 Delivery O2 Flow Rate FiO2 07/29/21 11:10 98 Nasal Cannula 2.0 07/29/21 11:00 98.7 69 19 106/64 (78) 98.7 I & O 07/28/21 07/28/21 07/29/21 15:00 23:00 07:00 Intake Total 600 ml 500 ml 400 ml Output Total 1200 ml 200 ml Balance -600 ml 500 ml 200 ml Physical Exam General: Alert Heart: Regular rate (SR), Normal S1, Normal S2, Other (Distant heart sounds) Lungs: Wheezing, Crackles Abdomen: Soft, No tenderness Extremities: No cyanosis, No edema, Other (BLE veriscose veins) Skin: No breakdown, No significant lesion Labs Labs: Laboratory Tests Test 07/29/21 04:30 Sodium Level 138 mmol/L (136-145) Potassium Level 5.1 mmol/L (3.5-5.1) Chloride Level 106 mmol/L (98-107) Carbon Dioxide Level 26 mmol/L (21-32) Anion Gap 6 (6-14) Blood Urea Nitrogen 45 mg/dL (7-20) Creatinine 1.1 mg/dL (0.6-1.0) Estimated GFR (Cockcroft-Gault) 61.1 Glucose Level 93 mg/dL (70-99) Calcium Level 8.4 mg/dL (8.5-10.1) Assessment and Plan Assessmemt and Plan Problems Medical Problems: (1) Dyspnea Status: Acute Comment Review of Relevant I have reviewed the following items nidia (where applicable) has been applied. Justifications for Admission Other Justification SANG GODFREY MD Jul 29, 2021 12:44
--- NOTE | 2021-07-29 12:47 | PDOC3 ---
Discharge Summary Visit Information Date of Admission: Jul 26, 2021 Date of Discharge: Jul 29, 2021 Admitting Diagnosis: Acute hypoxic respiratory failure Final Diagnosis Problems Medical Problems: (1) Dyspnea Status: Acute Brief Hospital Course Allergies Allergies Coded Allergies Type Severity Reaction Last Updated Verified Latex, Natural Rubber Allergy Intermediate Itching 06/04/19 Yes Penicillins Allergy Intermediate Rash 06/04/19 Yes Vital Signs Vital Signs Date Time Temp Pulse Resp B/P (MAP) Pulse Ox O2 Delivery O2 Flow Rate FiO2 07/29/21 11:10 98 Nasal Cannula 2.0 07/29/21 11:00 98.7 69 19 106/64 (78) 98.7 Lab Results Laboratory Tests Test 07/27/21 14:35 07/29/21 04:30 Sodium Level 140 mmol/L (136-145) 138 mmol/L (136-145) Potassium Level 4.8 mmol/L (3.5-5.1) 5.1 mmol/L (3.5-5.1) Chloride Level 106 mmol/L (98-107) 106 mmol/L (98-107) Carbon Dioxide Level 22 mmol/L (21-32) 26 mmol/L (21-32) Anion Gap 12 (6-14) 6 (6-14) Blood Urea Nitrogen 44 mg/dL (7-20) 45 mg/dL (7-20) Creatinine 1.6 mg/dL (0.6-1.0) 1.1 mg/dL (0.6-1.0) Estimated GFR (Cockcroft-Gault) 39.7 61.1 Glucose Level 136 mg/dL (70-99) 93 mg/dL (70-99) Calcium Level 8.8 mg/dL (8.5-10.1) 8.4 mg/dL (8.5-10.1) Laboratory Tests Test 07/29/21 04:30 Sodium Level 138 mmol/L (136-145) Potassium Level 5.1 mmol/L (3.5-5.1) Chloride Level 106 mmol/L (98-107) Carbon Dioxide Level 26 mmol/L (21-32) Anion Gap 6 (6-14) Blood Urea Nitrogen 45 mg/dL (7-20) Creatinine 1.1 mg/dL (0.6-1.0) Estimated GFR (Cockcroft-Gault) 61.1 Glucose Level 93 mg/dL (70-99) Calcium Level 8.4 mg/dL (8.5-10.1) Brief Hospital Course Ms Clemente is a 61-year-old female with past medical history COPD, who presents to the ED with complaints of worsening wheezing and shortness of breath since last night. She reports associated cough with clear sputum. She states she normally does not require oxygen, but upon my evaluation she is breathing on 2 L nasal cannula. Labs from admission showed BUN 33, creatinine 1.3, BG 128, AST 56, ALT 65, albumin 2.9. Chest x-ray and CTA chest showed pulmonary interstitial edema and trace right pleural effusion. She will be admitted for further medical management. 07/27: Still with audible wheezing today. Per [employer] report thoracic impedance increased consistent with fluid overload. Discussed with cardiology continue furosemide. Counseled heavily on smoking cessation she notes she is cut down to 1 cigarette prior to admission still with dyspnea on exertion today. 07/28: 1.8 L urine output after IV furosemide, creatinine increased from 1.3-1.6. Still requiring O2. Discussed need for 6-minute walk and repeat metabolic panel prior to discharge. 07/29: Stable dyspnea on exertion went for 6-minute walk today requiring 2 L/min nasal cannula at all times. Discussed need for treatment for cor pulmonale and tobacco cessation given combined COPD and CHF exacerbation. She has outpatient cardiology follow-up and would like home health. Cr improved to 1.1 Problem list: Acute respiratory failure with hypoxia combined CHF and COPD exacerbation. Acute COPD exacerbation GEMMA Tobacco use disorder Acute on chronic systolic CHF: appears better Hx of VT: on home mexilitine NICM Hx of nonobstructive CAD HTN: controlled CKD2 AICD in situ: [employer] Greater than 30 minutes spent on discharge home with home health and home O2 Discharge Information Condition at Discharge: Improved Follow Up: Weeks Disposition/Orders: D/C to Home w/ HH (1) Scheduled Aspirin (Aspirin) 81 Mg Tab.chew, 1 TAB PO DAILY for home med, #30 Ref 3 (Reported) Entered as Reported by: KEILY WATSON RN on 07/26/21 09 Last Taken: Unknown Dose on 07/26/21 0700 Last Action: Continued on 07/26/21 1108 by ALFRED KHAN Atorvastatin Calcium (Atorvastatin Calcium) 40 Mg Tablet, 1 TAB PO DAILY for home med, #30 Ref 5 (Reported) Entered as Reported by: KEILY WATSON RN on 07/26/21951 Last Action: Continued on 07/26/211107 by ALFRED KHAN Clopidogrel Bisulfate (Clopidogrel) 75 Mg Tablet, 1 TAB PO DAILY for home med, #90 Ref 1 (Reported) Entered as Reported by: KEILY WATSON RN on 07/26/21951 Last Action: Continued on 07/26/211107 by ALFRED KHAN Empagliflozin (Jardiance) 25 Mg Tablet, 25 MG PO DAILY for home med, (Reported) Entered as Reported by: KEILY WATSON RN on 07/26/21951 Last Action: Continued on 07/26/211107 by ALFRED KHAN Furosemide (Furosemide) 40 Mg Tablet, 40 MG PO DAILY for diuretic, (Reported) Entered as Reported by: AIMEE FOSTER on 04/10/191113 Furosemide (Furosemide) 40 Mg Tablet, 1 TAB PO DAILY for home med, #30 Ref 5 (Reported) Entered as Reported by: KEILY WATSON RN on 07/26/21951 Last Action: Continued on 07/26/211107 by ALFRED KHAN Losartan Potassium (Losartan Potassium) 50 Mg Tablet, 50 MG PO DAILY for HYPERTENSION, (Reported) Entered as Reported by: KEILY WATSON RN on 07/26/21951 Last Action: Continued on 07/26/211107 by ALFRED KHAN Magnesium Oxide (Magnesium Oxide) 400 Mg Tablet, 400 MG PO BID for LOW MAG, (R eported) Entered as Reported by: ERUM TOLEDO RN on 04/09/192207 Last Action: Continued on 07/26/211504 by SUSU QUIGLEY MD Metoprolol Tartrate (Lopressor) 100 Mg Tablet, 50 MG PO BID for home med, (Reported) Entered as Reported by: KEILY WATSON RN on 07/26/21951 Last Action: Converted on 07/26/211107 by ALFRED KHAN Mexiletine Hcl (Mexiletine Hcl) 150 Mg Capsule, 150 MG PO Q8HRS for home med, (Reported) Entered as Reported by: KEILY WATSON RN on 07/26/21951 Last Action: Converted on 07/26/211107 by ALFRED KHAN Potassium Chloride (Klor-Con 10) 10 Meq Tablet.er, 10 MEQ PO DAILY for supplement, (Reported) Entered as Reported by: AIMEE FOSTER on 04/10/191113 Spironolactone (Spironolactone) 25 Mg Tablet, 1 TAB PO DAILY for home med, #90 Ref 1 (Reported) Entered as Reported by: KEILY WATSON RN on 07/26/21951 Last Action: Continued on 07/26/211107 by ALFRED KHAN Scheduled PRN Acetaminophen (Acetaminophen) 325 Mg Tablet, 1 TAB PO PRN Q4-6HRS PRN for pain or fever for 24 Days, #100 Ref 0 (Reported) Entered as Reported by: KEILY WATSON RN on 07/26/21951 Last Action: Reviewed on 07/26/21952 by KEILY WATSON RN Albuterol Sulfate (Albuterol Sulfate Conc Neb Soln) 2.5 Mg/0.5 Ml Vial.neb, 90 MCG NEB Q4HRS PRN for WHEEZING, Ref 0 (Reported) Entered as Reported by: KEILY WATSON RN on 07/26/21951 Last Action: Reviewed on 07/26/21952 by KEILY WATSON RN Benzonatate (Benzonatate) 100 Mg Capsule, 1 CAP PO Q6HRS PRN for COUGH, #30 (Reported) Entered as Reported by: KEILY WATSON RN on 07/26/21951 Last Action: Continued on 07/26/211107 by ALFRED KHAN Justicifation of Admission Dx: Justifications for Admission: Justification of Admission Dx: Yes SANG GODFREY MD Jul 29, 2021 12:47
[2021-07-29] MEDS ORDERED: PRED20TA PO (12:49)
--- NOTE | 2021-07-29 12:51 | SNU/HH DC ---
DISCHARGE WITH HOME HEALTH DISCHARGE INFORMATION: Discharge Date: Jul 29, 2021 Final Diagnosis: Problems Medical Problems: (1) Dyspnea Status: Acute Condition on Discharge: Stable CODE STATUS: Code Status: Full HOME HEALTH: Face to Face: I certify this patient is under my care and that I, or a nurse practitioner or physician's prosthetic assistant working with me, had a face to face encounter that meets the physician face to face encounter requirements with this patient on 07/29/2021. Medical Complications: CHF, COPD, DM, HTN Care Home For: Assess & Educate Safety, Assess/Skilled Observatio, Diabetic Care, Medication Management RN For Eval/Treatment: Yes Physical Therapy For: Evalulation/Treatment Occupational Therapy For: Evaluation/Treatment Pt Meets Homebound Status: Extreme weakness w/ amb., Limited distance walking POST DISCHARGE ORDERS: Activity Instructions for Disc: Activity as tolerated Weight Bearing Status after Di: As tolerated, Other, see below DIET AFTER DISCHARGE: Cardiac CHECKS AFTER DISCHARGE: Checks after discharge: Check blood press - daily TREATMENT/EQUIPMENT ORDERS: Adaptive Equipment Issued: None Discharge Respiratory Equipmen: Oxygen (2 L/min at all times), Nebulizer CERTIFICATION STATEMENT: Certification Statement: Certification Statement: Based on the above finding, I certify that this patient is confined to the home and needs intermittent mcfp care, physical therapy and/or speech therapy, or continues to need occupational therapy.~ This patient is under my care, and I have initiated the establishment of the plan of care.~ This patient will be followed by myself or a community physician who will periodically review the plan of care. Home Meds Active Scripts Prednisone (PREDNISONE) 20 Mg Tablet, 20 MG PO DAILY for COPD for 5 Days, #5 TAB Prov:SANG GODFREY MD 07/29/21 Reported Medications Spironolactone (SPIRONOLACTONE) 25 Mg Tablet, 1 TAB PO DAILY for home med, #90 TAB 1 Refill 07/26/21 Mexiletine Hcl (MEXILETINE HCL) 150 Mg Capsule, 150 MG PO Q8HRS for home med, CAP 07/26/21 Metoprolol Tartrate (Lopressor) 100 Mg Tablet, 50 MG PO BID for home med, TAB 07/26/21 Losartan Potassium (LOSARTAN POTASSIUM) 50 Mg Tablet, 50 MG PO DAILY for HYPERTENSION, TAB 07/26/21 Empagliflozin (JARDIANCE) 25 Mg Tablet, 25 MG PO DAILY for home med, TAB 07/26/21 Furosemide (FUROSEMIDE) 40 Mg Tablet, 1 TAB PO DAILY for home med, #30 TAB 5 Refills 07/26/21 Clopidogrel Bisulfate (CLOPIDOGREL) 75 Mg Tablet, 1 TAB PO DAILY for home med, #90 TAB 1 Refill 07/26/21 Benzonatate (BENZONATATE) 100 Mg Capsule, 1 CAP PO Q6HRS PRN for COUGH, #30 CAP 07/26/21 Atorvastatin Calcium (ATORVASTATIN CALCIUM) 40 Mg Tablet, 1 TAB PO DAILY for home med, #30 TAB 5 Refills 07/26/21 Aspirin (ASPIRIN) 81 Mg Tab.chew, 1 TAB PO DAILY for home med, #30 TAB 3 Refills 07/26/21 Albuterol Sulfate (ALBUTEROL SULFATE CONC NEB SOLN) 2.5 Mg/0.5 Ml Vial.neb, 90 MCG NEB Q4HRS PRN for WHEEZING, EACH 0 Refills 07/26/21 Acetaminophen (ACETAMINOPHEN) 325 Mg Tablet, 1 TAB PO PRN Q4-6HRS PRN for pain or fever for 24 Days, #100 TAB 0 Refills 07/26/21 Potassium Chloride (Klor-Con 10) 10 Meq Tablet.er, 10 MEQ PO DAILY for supplement, TAB.SR 04/10/19 Magnesium Oxide (MAGNESIUM OXIDE) 400 Mg Tablet, 400 MG PO BID for LOW MAG, TAB 04/09/19 Discontinued Reported Medications Furosemide (FUROSEMIDE) 40 Mg Tablet, 40 MG PO DAILY for diuretic, TAB 04/10/19 SANG GODFREY MD Jul 29, 2021 12:51
[2021-07-29] MEDS ORDERED: BUDE0.5A3 NEB (12:54)
[2021-07-29] MEDS ORDERED: IPRA3AMP29 NEB (12:54)
[2021-07-29 15:00] VITALS: BP 100/55
== END 2021-07-29 16:30 | disposition home health service (06) | DRG 291 ==
LOC: ER 05:15 → 6 SOUTH 08:43
PROVIDERS: ADMIT Internal Medicine; ATTEND Internal Medicine
DX: I13.0 Hypertensive heart and chronic kidney disease with heart failure and stage 1 through stage 4 chronic kidney disease, or unspecified chronic kidney disease (principal); I50.23 Acute on chronic systolic (congestive) heart failure; J96.01 Acute respiratory failure with hypoxia; J44.1 Chronic obstructive pulmonary disease with (acute) exacerbation; N17.9 Acute kidney failure, unspecified; I25.10 Atherosclerotic heart disease of native coronary artery without angina pectoris; F17.210 Nicotine dependence, cigarettes, uncomplicated; E78.5 Hyperlipidemia, unspecified; E78.00 Pure hypercholesterolemia, unspecified; I25.2 Old myocardial infarction; I42.8 Other cardiomyopathies; N18.2 Chronic kidney disease, stage 2 (mild); Z82.49 Family history of ischemic heart disease and other diseases of the circulatory system; Z82.5 Family history of asthma and other chronic lower respiratory diseases; Z90.710 Acquired absence of both cervix and uterus; Z95.810 Presence of automatic (implantable) cardiac defibrillator; Z20.822 Contact with and (suspected) exposure to COVID-19; Z91.040 Latex allergy status; Z88.0 Allergy status to penicillin; Z91.048 Other nonmedicinal substance allergy status; Z90.49 Acquired absence of other specified parts of digestive tract
CPT/HCPCS: 36415; 36600; 71045; 71275; 80048; 80053; 82805; 83605; 83735; 84484; 85025; 85379; 87428; 93005; 94618; 94640; 94760; J1644; J1940; J2920; J2930; J7040; J7512; Q9967; 97110-GP; 97535-GO; 99285-25; G0378